=== PATIENT | female | born 1945 | race Caucasian/White ===

== ENCOUNTER 2019-10-08 16:00 | Emergency (ER) | payer OTHER, SELFPAY ==
[2019-10-08 16:15] VITALS: BP 180/103; PULSE 55; RESP 16; TEMP 36.6; O2SAT 99
[2019-10-08 17:33] VITALS: PULSE 55
[2019-10-08 18:42] VITALS: BP 179/89; PULSE 53; RESP 14; O2SAT 98
--- NOTE | 2019-10-08 18:44 | PC.NURSE ---
bp med held per md orders. pt informed
[2019-10-08 18:45] LABS: Basophils Absolute Auto 0.1 K/mm3 (0.0-0.1); Basophils Percent Auto 0.9 % (0.2-1.2); Eosinophils Absolute Auto 0.5 K/mm3 (0-0.3); Eosinophils Percent Auto 5.3 % (0-4.4); Hematocrit 45.4 % (37.0-47.0); Hemoglobin 14.6 g/dL (12.0-15.0); Immature Granulocyte Absolute 0.01 K/mm3 (0.00-0.031); Immature Granulocyte Percent A 0.1 % (0-0.5); Lymphocytes Absolute Auto 3.71 K/mm3 (0.9-3.2); Lymphocytes Percent Auto 40.6 % (18.3-44.2); Mean Corpuscular HGB Conc 32.2 g/dl (32-36); Mean Corpuscular Hemoglobin 28.8 pg (26-34); Mean Corpuscular Volume 89.5 fl (80-100); Mean Platelet Volume 10.4 fl (7.4-10.4); Monocytes Absolute Auto 0.6 K/mm3 (0.1-0.6); Monocytes Percent Auto 6.6 % (2.6-8.5); Neutrophils Absolute Auto 4.3 K/mm3 (1.3-6.7); Neutrophils Percent Auto 46.5 % (45.5-73.1); Platelet Count Result 334 k/mm3 (150-375); Red Blood Count 5.07 M/mm3 (4.2-5.4); Red Cell Distribution Width 13.5 % (11.5-14.5); White Blood Count 9.1 K/mm3 (4.5-10.0)
[2019-10-08 19:03] VITALS: BP 188/100; PULSE 57
[2019-10-08 19:23] LABS: Blood Urea Nitrogen 18 mg/dL (7-17); Calcium 9.5 mg/dL (8.4-10.2); Carbon Dioxide 26 mmol/L (22-30); Chloride 105 mmol/L (98-107); Estimated CRCL calculation 43 ml/min; Estimated Glomerular Filt Rate > 60; Glucose 108 mg/dL (65-105); Magnesium 2.3 mg/dL (1.6-2.3); Potassium 3.8 mmol/L (3.4-5.0); Sodium 142 mmol/L (137-145)
--- NOTE | 2019-10-08 19:28 | ED.GENADULT ---
HPI - General Adult General Chief complaint: Unspecified Stated complaint: high blood pressure Time Seen by Provider: 10/08/19 17:48 History of Present Illness HPI narrative: Patient is a 74-year-old female who presents the ER with hypertension. She is recently been started on metoprolol 100 mg and had her lisinopril 40 mg discontinued. Patient has had some intermittent blood pressures in the 200s systolic. She has been without chest pain/shortness of breath/nausea/vomiting/dizziness/headache. No other changes in medications. She is been on no sinus decongestants. Patient has some undiagnosed dementia according to the son. At this time patient is oriented to self and place but not time. She has difficult to giving any history about the course of which her medications have been changed or why she is here. Related Data Home Medications Medication Instructions Recorded Confirmed metoprolol succinate 100 mg PO DAILY 10/08/19 Allergies Allergy/AdvReac Type Severity Reaction Status Date / Time No Known Allergies Allergy Mild Verified 10/08/19 19:06 Review of Systems Review of Systems: All systems reviewed & are unremarkable except as noted in HPI and below ROS unobtainable: other (Limited due to dementia.) ENT: Denies dizziness, Denies nasal congestion and Denies sore throat Cardiovascular: Cardiovascular: Denies chest pain and Denies radiating jaw, neck or arm pain Respiratory: Respiratory: Denies chest congestion and Denies dyspnea Gastrointestinal: Gastrointestinal: Denies nausea and Denies vomiting PMFSH Past Medical History Medical History (Updated 10/08/19 @ 19:56 by Salvador Monique MD) Hypertension Surgical History Surgical History (Updated 10/08/19 @ 19:49 by Salvador Monique MD) History of tonsillectomy Social History Social History (Updated 10/08/19 @ 19:49 by Salvador Monique MD) Social History: Non-smoker Exam Narrative: Exam Narrative: GENERAL: Well-appearing, well-nourished, and in no acute distress. HEAD: Normocephalic, atraumatic. ENT: Mucous membranes moist. CHEST: Clear to auscultation. No respiratory distress. HEART: Regular rate and rhythm. No murmur heard. Normal peripheral pulses. ABDOMEN: Soft, nontender, nondistended. EXTREMITIES: Normal range of motion. No edema. NEURO: No focal deficits. Alert and oriented x3. PSYCH: Normal mood and affect. Course Course Emergency Course: Blood pressures ranged from the low 200s to 150 systolic. We will not give patient any additional medication to augment her blood pressure at this time as she is asymptomatic with normal labs. Is recommended she follow-up with Dr. Hays for further modification medication. I have also discussed that the patient may need assisted living given her deteriorating mental status, son states this is something he and his siblings have started to discuss. Vital Signs Vital signs: Vital Signs Temperature 97.9 F 10/08/19 16:15 Pulse Rate 55 L 10/08/19 16:15 Respiratory Rate 16 10/08/19 16:15 Blood Pressure 180/103 H 10/08/19 16:15 Pulse Oximetry 99 10/08/19 16:15 Temperature 97.9 F 10/08/19 16:15 Pulse Rate 57 L 10/08/19 19:03 Respiratory Rate 14 10/08/19 18:42 Blood Pressure 188/100 H 10/08/19 19:03 Pulse Oximetry 98 10/08/19 18:42 Medical Decision Making Vital Signs Vital Signs: Vital Signs Temperature 97.9 F 10/08/19 16:15 Pulse Rate 55 L 10/08/19 16:15 Respiratory Rate 16 10/08/19 16:15 Blood Pressure 180/103 H 10/08/19 16:15 Pulse Oximetry 99 10/08/19 16:15 Temperature 97.9 F 10/08/19 16:15 Pulse Rate 57 L 10/08/19 19:03 Respiratory Rate 14 10/08/19 18:42 Blood Pressure 188/100 H 10/08/19 19:03 Pulse Oximetry 98 10/08/19 18:42 Lab Data Result diagrams: 10/08/19 18:39 10/08/19 19:04 Labs: Lab Results 10/08/19 10/08/19 Range/Units 18:39 19:04 WBC 9.1 (4.5-10.0) K/
[2019-10-08 20:12] VITALS: BP 170/88; PULSE 57; RESP 17; O2SAT 96
== END 2019-10-08 20:22 | disposition home or self-care (01) ==
PROVIDERS: Emergency Provider Emergency Medicine; PCP Family Medicine Adolescent Medicine
DX: I10 Essential (primary) hypertension (principal)
CPT/HCPCS: 36415; 80048; 83735; 85025; 99283; J0360

== ENCOUNTER 2020-11-18 16:41 | Outpatient (CLI) | payer OTHER, MEDICARE, SELFPAY | END 2020-11-18 16:42 | disposition home or self-care (01) | LOC: ANHCOVIDVC 16:41 | PROVIDERS: PCP Family Medicine Adolescent Medicine | DX: Z23 Encounter for immunization (principal) | CPT/HCPCS: 0001A; 91300 ==

== ENCOUNTER 2020-12-09 16:48 | Outpatient (CLI) | payer OTHER, MEDICARE, SELFPAY | END 2020-12-09 16:49 | LOC: ANHCOVIDVC 16:48 | PROVIDERS: PCP Family Medicine Adolescent Medicine | DX: Z23 Encounter for immunization (principal) | CPT/HCPCS: 0002A; 91300 ==

== ENCOUNTER 2024-08-13 14:23 | Inpatient (IN) | payer OTHER, SELFPAY ==
--- NOTE | ~2024-08-13 | CT_ITS ---
EXAMINATION: CT brain wo con DATE: 08/13/2024 16:46 INDICATION: weak, fall . TECHNIQUE: Computed tomography (CT) of the head was performed without intravenous contrast. The mA wa s adjusted according to patient size. Iterative reconstruction technique was employed. The dose-lengt h product was 605.33 mGy-cm. COMPARISON: None. FINDINGS: No acute intracranial hemorrhage or extra-axial fluid collection. No hydrocephalus, mass, or herniation. No acute ischemic infarct. Unremarkable dural venous sinus attenuation. No acute osseous abnormality. The aerated spaces are clear. Mild atrophy and severe chronic white matter change. Atherosclerotic intracranial calcification. Bila teral lens replacements. IMPRESSION: No acute intracranial process. Reviewed, dictated and finalized at location K. NG MACHINE OPERATOR
--- NOTE | ~2024-08-13 | CT_ITS ---
EXAMINATION: CT cervical spine wo con DATE: 08/13/2024 16:47 INDICATION: weak, fall TECHNIQUE: Computed tomography (CT) of the cervical spine was performed without intravenous contrast. Automated exposure control and iterative reconstruction technique were employed. The dose-length pro duct was 156.90 mGy-cm. COMPARISON: MR C-spine 05/25/2019. FINDINGS: Vertebral Body Alignment: Intact. Craniocervical and atlantoaxial alignment: Moderate degenerative change. Alignment intact. Osseous structures/fracture: No evidence of a lytic or blastic process in the visualized spine. No e vidence of acute fracture. Cervical soft tissues: The paraspinal soft tissues planes are maintained. Biapical pleural scarring Degenerative changes: Multilevel degenerative disc disease and facet arthropathy. Multilevel severe n eural foraminal narrowing secondary to degenerative changes. No severe central canal narrowing. IMPRESSION: No acute fracture or traumatic malalignment in the cervical spine. Reviewed, dictated and finalized at location K. AND COMPLIANCE ANALYTICS DIRECTOR
--- NOTE | ~2024-08-13 | XR_ITS ---
EXAMINATION: XR chest 1V Exam Date/Time: 08/13/2024 16:22 AUTO BODY DETAILER HISTORY: weak Comparison: 03/21/2018. RESULT: Lines, tubes, and devices: None. Lungs and pleura: Patchy subsegmental somewhat nodular opacity in the right upper lung. Patchy segme ntal somewhat nodular opacities in the left midlung. Streaky left lower lung opacities. Minimal left costophrenic angle blunting. Cardiomediastinal silhouette: Stable. Other: No acute osseous or upper abdominal finding. IMPRESSION: Subsegmental right and segmental left mid lung opacities may represent infection. Recommend radiograp hic follow-up to ensure resolution. Possible small left pleural effusion Reviewed, dictated and finalized at location K. BODY DETAILER IMPRESSION: Subsegmental right and segmental left mid lung opacities may represent infectio n. Recommend radiographic follow-up to ensure resolution. Possible small left p leural effusion
--- NOTE | ~2024-08-13 | XR_ITS ---
XR chest 2V DATE: 08/18/2024 10:13 INDICATION: Congestion. Influenza. TECHNIQUE: PA and lateral chest COMPARISON: 08/13/2024 AP chest 03/21/2008 2 view chest FINDINGS: There are persistent bilateral pulmonary infiltrates including right upper lobe and left mi d and lower lung trevino, relatively stable since 08/13/2024. Continued radiographic follow-up is redd mmended to ensure complete clearing in order to exclude any possible pulmonary mass density masquerad ing as infiltrate. Normal heart size. No hilar or mediastinal enlargement. There is slight if any pleural effusions. No pneumothorax. No pulmonary vascular congestion. Osteopenia. IMPRESSION: Relatively stable bilateral pulmonary infiltrates and continued short-term radiographic f ollow-up is recommended to ensure complete clearing are to exclude any possible mass lesion. Reviewed, dictated and finalized at location A. T USHER IMPRESSION: Relatively stable bilateral pulmonary infiltrates and continued virgil rt-term radiographic follow-up is recommended to ensure complete clearing are t o exclude any possible mass lesion.
--- NOTE | ~2024-08-13 | US_ITS ---
EXAMINATION: US right upper quadrant DATE: 08/16/2024 09:49 INDICATION: Elevated liver function tests. TECHNIQUE: Multiple grayscale and Doppler ultrasound images of the abdomen were obtained. COMPARISON: None FINDINGS: The pancreatic head and body are normal in appearance. The pancreatic tail is not visualized. The vi sualized proximal inferior vena cava is normal. Liver has normal contour, with a smooth surface. Ther e is increased parenchymal echogenicity and coarsened echotexture consistent with diffuse hepatic renuka atosis. No liver lesion identified. No intrahepatic biliary duct dilation suspected. Portal venous f low was seen in the hepatopetal, normal direction and has normal Doppler waveform. Echogenic and shad owing gallstones within the nondilated gallbladder with no abnormal wall thickening. Sonographic Murp hy sign was reported as negative by the sheet metal production worker.Common bile duct measures 3 mm diameter which is normal. Visualized portion of the right kidney demonstrates normal echogenicity with no hydronephrosi s. IMPRESSION: 1. Cholelithiasis in normal-appearing gallbladder with no intra or extra hepatic biliary ductal dilat ion. 2. Diffuse hepatic steatosis. Reviewed, dictated and finalized at location B. STANT EXECUTIVE HOUSEKEEPER IMPRESSION: 1. Cholelithiasis in normal-appearing gallbladder with no intra or extra hepati c biliary ductal dilation. 2. Diffuse hepatic steatosis.
[2024-08-13 14:29] VITALS: BP 149/91; PULSE 96; RESP 16; TEMP 36.7; O2SAT 97
--- NOTE | 2024-08-13 16:05 | ED_ITS ---
HPI - Weakness General Chief complaint: Weakness <Leyla Carbajal PA-C - Last Filed: 08/13/24 16:26> Stated complaint: weakness and glf on Monday <Leyla Carbajal PA-C - Last Filed: 08/13/24 16:26> Time Seen by Provider: 08/13/24 17:25 <Leyla Carbajal PA-C - Last Filed: 08/13/24 16:26> Focused HPI: 79-year-old female presents to the emergency department for generalized weakness and frequent falls. Patient states generalized weakness has been present for several months. Per chart review the patient had a recent ground level fall with a head injury and she presents with a healing laceration to the left forehead. Patient denies recent fall or head injury. She is reporting new onset headaches. She denies fever, cough or congestion, chest pain or shortness of breath, abdominal pain, N/V/D, dysuria. GENERAL: Well-appearing, well-nourished, and in no acute distress. HEAD: Normocephalic. Healing 2 cm linear laceration to the left forehead no bleeding, surrounding erythema, induration or fluctuation CHEST: Clear to auscultation. ?No respiratory distress. HEART: Regular rate and rhythm.? NEURO: ?Alert and oriented x1. Patient screened in triage and initial orders placed.? ?Additional care and disposition to be based upon?diagnostic testing and treatment. <Leyla Carbajal PA-C - Last Filed: 08/13/24 16:26> History of Present Illness HPI Narrative: Agree with the above with the following additions/corrections: Patient has had a dry cough for approximately 1 and half weeks. She denies any shortness of breath or chest pain. She has been having myalgias particularly in her legs low back. She has been weak and had a ground level fall Monday but states this was her only fall, has not been frequently falling. She states she accidentally lost her footing. She sustained a laceraton to her left forehead. In general however she has been feeling worn out for approximately 1 month. Her only complaint at this time is a mild headache. Patient does know if she has ever undergone stress test or cardiac catheterization. Lives with her and dog. <Korin Poole MD - Last Filed: 08/15/24 06:45> Related Data Allergies/Adverse reactions: Allergies Allergy/AdvReac Type Severity Reaction Status Date / Time BOBO Inhibitors AdvReac Intermediate Cough Verified 08/14/24 04:26 <Leyla Carbajal PA-C - Last Filed: 08/13/24 16:26> PMFSH Past Medical History Medical History: Medical History (Updated 08/14/24 @ 01:29 by Shayna Linares PA-C) Short-term memory loss Hyperlipidemia Hypertension <Leyla Carbajal PA-C - Last Filed: 08/13/24 16:26> Surgical History Surgical History: Surgical History History of total abdominal hysterectomy (2013) History of tonsillectomy <Leyla Carbajal PA-C - Last Filed: 08/13/24 16:26> Family History Family History: Family History Father Throat cancer Mother Heart failure Cerebrovascular accident Breast cancer Acute myocardial infarction, Onset Age: 63 <Leyla Carbajal PA-C - Last Filed: 08/13/24 16:26> Social History Social History: Social History Social History: Surrogate medical decision maker: Lloyd Guerrero, spouse. Code status: Full code. Smoking status: Former smoker Tobacco type: cigarettes Smoking end date: 08/14/74 Do You Feel Safe in your Home?: Yes Lack of Transportation: No Lack of Food: Never True Current Housing: I Have Housing Concerned About Future Housing: No Difficulty Paying Gas/Electric Bills: No Difficulty Paying for Meds: No Currently Unemployed: No Education: Decline to Answer Difficulty w/ Childcare or Family Care: No Living arrangements: with family Additional living arrangements comments: and dog Spiritual care concerns: No <Leyla Carbajal PA-C - Last Filed: 08/13/24 16:26> Exam 2 Narrative: GENERAL: well-nourished, and in no acute distress although does appear acutely ill/weak/unwell. HEAD: Normocephalic. EYES: Non injected, non icteric ENT: Nares clear, no rhinorrhea or epistaxis. NECK: Supple. CHEST: Speaking in full sentences. No respiratory distress although patient was occasionally coughing during exam. Lungs otherwise clear to auscultation bilaterally. HEART: Regular rate and rhythm. . ABDOMEN: Soft, nondistended. EXTREMITIES: Normal range of motion. No lower extremity edema. SKIN: Warm, dry, no rash. 2cm well healing laceration on left forehead NEURO: No focal deficits. Alert and oriented x3. PSYCH: Normal mood and affect. <Korin Poole MD - Last Filed: 08/15/24 06:45> Course Vital Signs Vital signs: Vital Signs Temperature 98.1 F 08/13/24 14:29 Pulse Rate 96 08/13/24 14:29 Respiratory Rate 16 08/13/24 14:29 Blood Pressure 149/91 H 08/13/24 14:29 Pulse Oximetry 97 08/13/24 14:29 Temperature 98.6 F 08/15/24 03:47 Pulse Rate 78 08/15/24 05:48 Respiratory Rate 18 08/15/24 04:40 Blood Pressure 138/70 08/15/24 03:47 Pulse Oximetry 93 08/15/24 04:40 Oxygen Delivery Room Air 08/15/24 04:40 <Leyla Carbajal PA-C - Last Filed: 08/13/24 16:26> Vital Signs Temperature 98.1 F 08/13/24 14:29 Pulse Rate 96 08/13/24 14:29 Respiratory Rate 16 08/13/24 14:29 Blood Pressure 149/91 H 08/13/24 14:29 Pulse Oximetry 97 08/13/24 14:29 Temperature 98.6 F 08/15/24 03:47 Pulse Rate 78 08/15/24 05:48 Respiratory Rate 18 08/15/24 04:40 Blood Pressure 138/70 08/15/24 03:47 Pulse Oximetry 93 08/15/24 04:40 Oxygen Delivery Room Air 08/15/24 04:40 <Korin Poole MD - Last Filed: 08/15/24 06:45> MDM - Weakness MDM Narrative Medical decision making narrative: Patient presents with myalgias and a dry approximately 1 and weeks duration. She has been feeling weak and had a ground fall Monday which she sustained a laceration to forehead. In general however she has been feeling worn out for the past 1 month. In the emergency department she is afebrile with acceptable vital signs very mild hypertension. Patient has elevated troponin. While there was initially questionable ST- elevation it is not sustained throughout lead 3 and this is the only lead were to seen. She does have some scattered T-wave inversions. Aspirin and repeat troponin is ordered. Patient has transaminitis. Her CPK is elevated, and will start IV fluids. Patient with hypokalemia. Will replete/supplement and obtain magnesium level. She does test positive for influenza A. Patient is evaluated at bedside. She is observed to be occasionally coughing, nonproductive. Her only complaint other than her generalized weakness is a headache. Possibly postconcussive headache or possibly due to her viral illness. Will give a headache cocktail. Patient will be admitted for NSTEMI. This is not felt to be primarily cardiac in nature, likely due to demand ischemia and she has been weak given the flu. I did discuss code status with patient. At this time she would like to be full code and we discussed that this would potentially include chest compressions, intubation, defibrillation in the event of cardiopulmonary arrest. Discussed with physician interventional cardiologist hospitalist and admitted to the IMU. <Korin Poole MD - Last Filed: 08/15/24 06:45> Differential Diagnosis Differential diagnosis: Likely acute myocardial infarction, anemia, hypoglycemia, hypothyroidism, rhabdomyolysis, sepsis and dehydration <Korin Poole MD - Last Filed: 08/15/24 06:45> Medical Records Attestation: I reviewed the patient's medical records. <Korin Poole MD - Last Filed: 08/15/24 06:45> Medical records narrative: Patient had a wellness exam with her primary care physician on 06/18/2024, Dr Hays, who did raise question of some signs of dementia <Korin Poole MD - Last Filed: 08/15/24 06:45> Lab Data Attestation: I reviewed the patient's lab results. <Korin Poole MD - Last Filed: 08/15/24 06:45> Lab results narrative: Elevated hemoglobin and hematocrit, possibly due to hemoconcentration. No prior for comparison <Korin Poole MD - Last Filed: 08/15/24 06:45> Result diagrams: 08/15/24 04:48 08/15/24 04:48 <Leyla Carbajal PA-C - Last Filed: 08/13/24 16:26> Labs: Lab Results 08/13/24 08/13/24 Range/Units 16:21 16:22 WBC 5.8 (4.5-10.0) K/mm3 RBC 5.32 (4.2-5.4) M/mm3 Hgb 15.6 H (12.0-15.0) g/dL Hct 47.8 H (37.0-47.0) % MCV 89.8 (80-100) fl MCH 29.3 (26-34) pg MCHC 32.6 (32-36) g/dl RDW 14.0 (11.5-14.5) % Plt Count 239 (150-375) k/mm3 MPV 10.4 (7.4-10.4) fl Immature Gran % (Auto) 0.2 (0-0.5) % Neut % (Auto) 74.1 H (45.5-73.1) % Lymph % (Auto) 14.4 L (18.3-44.2) % [place] % (Auto) 10.8 H (2.6-8.5) % Eos % (Auto) 0.2 (0-4.4) % Baso % (Auto) 0.3 (0.2-1.2) % Lymph # (Auto) 0.84 L (0.9-3.2) K/mm3 [place] # (Auto) 0.6 (0.1-0.6) K/mm3 Eos # (Auto) 0.0 (0-0.3) K/mm3 Baso # (Auto) 0.0 (0.0-0.1) K/mm3 Abs Immat Gran (auto) 0.01 (0.00-0.031) K/mm3 Absolute Neuts (auto) 4.3 (1.3-6.7) K/mm3 Absolute Nucleated RBC 0.000 (0.0-0.012) K/mm3 Nucleated RBC % 0.0 (0.0-0.2) % PT 13.8 (11.1-14.7) Seconds INR 1.0 APTT 31.0 (22.3-36.8) Seconds Sodium 138 (137-145) mmol/L Potassium 3.3 L (3.4-5.0) mmol/L Chloride 104 (98-107) mmol/L Carbon Dioxide 28 (22-30) mmol/L Anion Gap 6 (4-12) mmol/L BUN 26 H (7-17) mg/dL Creatinine 0.90 (0.7-1.0) mg/dL Estim Creat Clear Calc 36 ml/min Estimated GFR 60 (59 - ) Glucose 114 H (65-110) mg/dL Calcium 9.0 (8.4-10.2) mg/dL Magnesium 2.6 H (1.6-2.3) mg/dL Total Bilirubin 1.0 (0.2-1.3) mg/dL AST 154 H (14-36) U/L ALT 70 H (6-35) U/L Alkaline Phosphatase 149 H (38-126) U/L Total Creatine Kinase 1502 H (30-135) U/L Troponin I 1.340 H* (0.000-0.034) ng/mL Total Protein 8.0 (6.3-8.2) g/dL Albumin 4.4 (3.5-5.1) g/dL TSH 1.290 (0.465-4.680) uIU/mL Influenza A (RT-PCR) Positive A (Negative) Influenza B (RT-PCR) Negative (Negative) RSV (RT-PCR) Negative (Negative) SARS-CoV-2 RNA (RT-PCR) Negative (Negative) <Leyla Carbajal PA-C - Last Filed: 08/13/24 16:26> Lab Results 08/13/24 08/13/24 Range/Units 16:21 16:22 WBC 5.8 (4.5-10.0) K/mm3 RBC 5.32 (4.2-5.4) M/mm3 Hgb 15.6 H (12.0-15.0) g/dL Hct 47.8 H (37.0-47.0) % MCV 89.8 (80-100) fl MCH 29.3 (26-34) pg MCHC 32.6 (32-36) g/dl RDW 14.0 (11.5-14.5) % Plt Count 239 (150-375) k/mm3 MPV 10.4 (7.4-10.4) fl Immature Gran % (Auto) 0.2 (0-0.5) % Neut % (Auto) 74.1 H (45.5-73.1) % Lymph % (Auto) 14.4 L (18.3-44.2) % [place] % (Auto) 10.8 H (2.6-8.5) % Eos % (Auto) 0.2 (0-4.4) % Baso % (Auto) 0.3 (0.2-1.2) % Lymph # (Auto) 0.84 L (0.9-3.2) K/mm3 [place] # (Auto) 0.6 (0.1-0.6) K/mm3 Eos # (Auto) 0.0 (0-0.3) K/mm3 Baso # (Auto) 0.0 (0.0-0.1) K/mm3 Abs Immat Gran (auto) 0.01 (0.00-0.031) K/mm3 Absolute Neuts (auto) 4.3 (1.3-6.7) K/mm3 Absolute Nucleated RBC 0.000 (0.0-0.012) K/mm3 Nucleated RBC % 0.0 (0.0-0.2) % PT 13.8 (11.1-14.7) Seconds INR 1.0 APTT 31.0 (22.3-36.8) Seconds Sodium 138 (137-145) mmol/L Potassium 3.3 L (3.4-5.0) mmol/L Chloride 104 (98-107) mmol/L Carbon Dioxide 28 (22-30) mmol/L Anion Gap 6 (4-12) mmol/L BUN 26 H (7-17) mg/dL Creatinine 0.90 (0.7-1.0) mg/dL Estim Creat Clear Calc 36 ml/min Estimated GFR 60 (59 - ) Glucose 114 H (65-110) mg/dL Calcium 9.0 (8.4-10.2) mg/dL Magnesium 2.6 H (1.6-2.3) mg/dL Total Bilirubin 1.0 (0.2-1.3) mg/dL AST 154 H (14-36) U/L ALT 70 H (6-35) U/L Alkaline Phosphatase 149 H (38-126) U/L Total Creatine Kinase 1502 H (30-135) U/L Troponin I 1.340 H* (0.000-0.034) ng/mL Total Protein 8.0 (6.3-8.2) g/dL Albumin 4.4 (3.5-5.1) g/dL TSH 1.290 (0.465-4.680) uIU/mL Influenza A (RT-PCR) Positive A (Negative) Influenza B (RT-PCR) Negative (Negative) RSV (RT-PCR) Negative (Negative) SARS-CoV-2 RNA (RT-PCR) Negative (Negative) <Korin Poole MD - Last Filed: 08/15/24 06:45> Imaging Data My impression: I do appreciate some mild haziness in the mid bilateral lung trevino < Korin Poole MD - Last Filed: 08/15/24 06:45> Radiologist's impression: IMPRESSION: No acute fracture or traumatic malalignment in the cervical spine. IMPRESSION: Subsegmental right and segmental left mid lung opacities may represent infection. Recommend radiographic follow-up to ensure resolution. Possible small left pleural effusion IMPRESSION: No acute intracranial process. <Korin Poole MD - Last Filed: 08/15/24 06:45> ECG Data EKG #1: Attestation: I personally reviewed and interpreted this ECG as follows: < Korin Poole MD - Last Filed: 08/15/24 06:45> ECG completion date: 08/13/24 <Korin Poole MD - Last Filed: 08/15/24 06:45> ECG completion time: 16:17 <Korin Poole MD - Last Filed: 08/15/24 06:45> Prior ECG tracings: not available for review (No prior for comparison) <Korin Poole MD - Last Filed: 08/15/24 06:45> Interpretation: Normal sinus rhythm at a rate of 89 beats per minute. SC interval 156. QRS 87. QT/QTC 353/400. Poor R-wave progression across the precordial leads. There is questionable elevation of ST segment in lead 3 but no contiguous elevation and it is not seen in all of the complexes in III thus potentially due to artifact. T-wave inversion in lead 3. T-wave inversions in V3 as well. <Korin Poole MD - Last Filed: 08/15/24 06:45> Discharge Plan Discharge Clinical Impression: Non-ST elevation NC (NSTEMI), Weakness, History of recent fall, Transaminitis, Elevated CPK, Influenza A <Leyla Carbajal PA-C - Last Filed: 08/13/24 16:26> Patient Disposition: Still a Patient <Leyla Carbajal PA-C - Last Filed: 08/13/24 16:26> Condition: Stable <Leyla Carbajal PA-C - Last Filed: 08/13/24 16:26>
--- NOTE | 2024-08-13 16:05 | ECG_ITS ---
Test Date: 2024-08-13 16:17:17 Measurements Intervals [place] Rate: 89 P: 5 ME: 156 QRS: -35 QRSD: 87 T: -17 QT: 353 QTc: 431 Interpretive Statements SINUS RHYTHM MINIMAL VOLTAGE CRITERIA FOR LVH, CONSIDER NORMAL VARIANT [MEETS CRITERIA IN ONE OF: R(aVL), S(V1), R(V5), R(V5/V6)+S(V1)] POSSIBLE ANTERIOR MYOCARDIAL INFARCTION , OF INDETERMINATE AGE [30 ms Q WAVE IN V3/V4, OR R < 0.2 mV IN V4] INFERIOR MYOCARDIAL INFARCTION , OF INDETERMINATE AGE [40+ ms Q WAVE AND/OR ST/T ABNORMALITY IN II/aVF] No previous ECG available for comparison Electronically Signed On 08-13-2024 22:39:44 [employer] by Rajiv Hoskins M.D.
[2024-08-13 16:39] LABS: Basophils Percent Auto 0.3 % (0.2-1.2); Eosinophils Percent Auto 0.2 % (0-4.4); Hematocrit 47.8 % (37.0-47.0); Hemoglobin 15.6 g/dL (12.0-15.0); Immature Granulocyte Absolute 0.01 K/mm3 (0.00-0.031); Immature Granulocyte Percent A 0.2 % (0-0.5); Lymphocytes Absolute Auto 0.84 K/mm3 (0.9-3.2); Lymphocytes Percent Auto 14.4 % (18.3-44.2); Mean Corpuscular HGB Conc 32.6 g/dl (32-36); Mean Corpuscular Hemoglobin 29.3 pg (26-34); Mean Corpuscular Volume 89.8 fl (80-100); Mean Platelet Volume 10.4 fl (7.4-10.4); Monocytes Absolute Auto 0.6 K/mm3 (0.1-0.6); Monocytes Percent Auto 10.8 % (2.6-8.5); Neutrophils Absolute Auto 4.3 K/mm3 (1.3-6.7); Neutrophils Percent Auto 74.1 % (45.5-73.1); Platelet Count Result 239 k/mm3 (150-375); Red Blood Count 5.32 M/mm3 (4.2-5.4); White Blood Count 5.8 K/mm3 (4.5-10.0)
[2024-08-13 16:53] LABS: Prothrombin Time 13.8 Seconds (11.1-14.7)
[2024-08-13 16:54] LABS: Alanine Aminotransferase 70 U/L (6-35); Albumin Level 4.4 g/dL (3.5-5.1); Alkaline Phosphatase 149 U/L (38-126); Anion Gap 6 mmol/L (4-12); Aspartate Amino Transferase 154 U/L (14-36); Blood Urea Nitrogen 26 mg/dL (7-17); Carbon Dioxide 28 mmol/L (22-30); Chloride 104 mmol/L (98-107); Estimated CRCL calculation 36 ml/min; Estimated Glomerular Filt Rate 60; Glucose 114 mg/dL (65-110); Potassium 3.3 mmol/L (3.4-5.0); Sodium 138 mmol/L (137-145)
[2024-08-13 17:16] LABS: Influenza A QL RT-PCR Positive (Negative); Influenza B QL RT-PCR Negative (Negative); RSV RNA, RT-PCR Negative (Negative); SARS-CoV-2 RNA PCR Negative (Negative)
[2024-08-13 17:29] LABS: Creatine Kinase 1502 U/L (30-135)
[2024-08-13 17:45] VITALS: BP 175/91; PULSE 85; RESP 19; O2SAT 94
[2024-08-13] MEDS: TETANUS,DIPHTHERIA,AC PERTUSSIS ADULT (0.5 ML) BOOSTRIX IM (17:48)
[2024-08-13 18:09] LABS: Magnesium 2.6 mg/dL (1.6-2.3)
[2024-08-13] MEDS: POTASSIUM BICARBONATE 25 MEQ TABEF PO (18:09)
[2024-08-13] MEDS: ASPIRIN 81 MG CHEWABLE TABLET 324 MG PO (18:09)
[2024-08-13 18:11] VITALS: BP 158/85; PULSE 83; RESP 18; O2SAT 95
[2024-08-13] MEDS: PROCHLORPERAZINE EDISYLATE 10 MG/2 ML VIAL 5 MG IV PUSH (18:22)
[2024-08-13] MEDS: SODIUM CHLORIDE 0.9% IV 1,000 ML 999 ML IV CONT (18:22)
[2024-08-13] MEDS: diphenhydrAMINE HCl INJ 50 MG/ML VIAL 25 MG IV PUSH (18:24)
[2024-08-13] MEDS: KETOROLAC 15 MG/ML VIAL (*BKC) IV PUSH (18:26)
[2024-08-13 18:29] VITALS: BP 158/85; PULSE 91; RESP 16; O2SAT 96
--- NOTE | 2024-08-13 20:35 | P.HP_ITS ---
H&P: HPI History of Present Illness Date/Time: 08/13/24 20:00 Chief Complaint: Weakness and fall. Narrative: This is an 79-year-old female with short-term memory loss, hypertension, and hyperlipidemia who presented to the emergency department via EMS from home for evaluation of weakness in after a fall. She is a fair historian and some of the following is supplemented via a review of her EMR. In triage she said that she has felt ?worn out? for at least 1 month. She has had a couple of falls and within the last couple of days she fell going down the front steps and landed forward on the concrete. She does not know how she fell but assumes that she got her feet tripped up, as she does not recall having prodrome of symptoms prior to the fall and she denies loss of consciousness. It is unclear why she decided to come in today for evaluation and she seems to be confused. No family members were present at bedside and I have not been able to get a hold of anyone as of yet for further information. At the time my evaluation she has no complaints and denies headache, neck ache, vertigo, visual changes, facial droop, difficulty speaking and swallowing, paresthesias, focal weakness, fever, chills, sweats, sinus congestion, sore throat, cough, chest pain, pleuritic pain, palpitations, orthopnea, paroxysmal nocturnal dyspnea, abdominal pain, nausea, vomiting, diarrhea, and dysuria. In the ED: Vital signs were stable on arrival. Labs were significant for WBC count of 5.8, hemoglobin 15.6, potassium 3.3, BUN 26, creatinine 0.90, glucose 114, AST 154, ALT 70, alkaline phosphatase 149, total CK 1502, troponin 1.340. She tested positive for influenza A. Brain CT and cervical spine CT were without acute findings. Chest x-ray showed subsegmental right and segmental left mid zone opacities which may represent infection and possible small left pleural effusion. EKG showed sinus rhythm with minimal voltage criteria for LVH, possible anterior myocardial infarction, and inferior UT of undetermined age. She was given aspirin 324 mg, potassium bicarbonate 25 mEq, and a L normal saline bolus. She is being admitted to the hospital in this setting for further treatment and evaluation. Review of Systems Review of Systems: 12 systems were reviewed and are negativ e except for as per HPI. [facility] Past Medical History Medical History (Updated 08/14/24 @ 01:29 by Shayna Linares PA-C) Short-term memory loss Hyperlipidemia Hypertension Surgical History Surgical History History of total abdominal hysterectomy (2013) History of tonsillectomy Family History Family History Father Throat cancer Mother Heart failure Cerebrovascular accident Breast cancer Social History Social History (Updated 08/14/24 @ 01:26 by Shayna Linares PA-C) Social History: Surrogate medical decision maker: Lloyd Guerrero, spouse. Code status: Full code. Smoking status: Former smoker Meds Home Medications and Allergies Home Medications ?Medication ?Instructions ?Recorded ?Confirmed ?Type amlodipine 5 mg tablet 5 mg PO DAILY #90 tabs 06/18/24 06/18/24 Rx atorvastatin 40 mg tablet 40 mg PO DAILY #90 tabs 06/26/24 Rx Allergies Allergy/AdvReac Type Severity Reaction Status Date / Time BOBO Inhibitors AdvReac Intermediate Cough Verified 08/13/24 17:43 Vital Signs Vital Signs - 24 hr 08/13/24 14:29 08/13/24 17:45 08/13/24 18:11 Temperature 98.1 F Pulse Rate 96 85 83 Respiratory Rate 16 19 18 Blood Pressure 149/91 H 175/91 H 158/85 H Pulse Oximetry 97 94 95 08/13/24 18:29 Temperature Pulse Rate 91 Respiratory Rate 16 Blood Pressure 158/85 H Pulse Oximetry 96 Exam Narrative: General: Mildly ill-appearing elderly female sitting up in bed in no acute distress. Weight: 59 kg. BMI: 23.0. HEENT: 1.5 to 2 cm linear laceration over the left forehead. PERRL, EOMI. Sclera anicteric. Tacky mucous membranes. Neck: Supple. No midline vertebral tenderness. Respiratory: Respirations are nonlabored. Lung sounds are a bit coarse but otherwise clear to auscultation. Cardiovascular: Regular rate and rhythm with S1-S2. Gastrointestinal: Abdomen is soft, nontender, and nondistended with positive bowel sounds. Skin: Warm and dry. Laceration over the left forehead as above. There are some scabbed areas on the dorsum of the fingers. Old bruise on the right knee. Extremities: No cyanosis, clubbing, or edema. Radial and pedal pulses intact. Neurological: Alert and oriented x3, she seems a bit confused with regards to how she fell. Cranial nerves 2-12 are grossly intact. Speech is clear. No facial asymmetry. Hand screen printing machine operator and foot pushes are equal bilaterally. She seems generally weak without gross focal deficit. Psychiatric: Pleasant and cooperative with appropriate mood. Seems a bit confused. H&P: Results Labs Labs: Short CBC 08/13/24 Range/Units 16:22 WBC 5.8 (4.5-10.0) K/mm3 Hgb 15.6 H (12.0-15.0) g/dL Hct 47.8 H (37.0-47.0) % Plt Count 239 (150-375) k/mm3 BMP 08/13/24 16:22 Sodium 138 Potassium 3.3 L Chloride 104 Carbon Dioxide 28 BUN 26 H Creatinine 0.90 Glucose 114 H Calcium 9.0 Cardiac Enzymes 08/13/24 Range/Units 16:22 Total Creatine Kinase 1502 H (30-135) U/L Troponin I 1.340 H* (0.000-0.034) ng/mL Liver Function 08/13/24 Range/Units 16:22 Total Bilirubin 1.0 (0.2-1.3) mg/dL AST 154 H (14-36) U/L ALT 70 H (6-35) U/L Alkaline Phosphatase 149 H (38-126) U/L Albumin 4.4 (3.5-5.1) g/dL Assessment and Plan Assessment and plan (1) Influenza A: Code(s): J10.1 - Influenza due to other identified influenza virus with other respiratory manifestations Status: Acute (2) Non-ST elevation UT (NSTEMI): Code(s): I21.4 - Non-ST elevation (NSTEMI) myocardial infarction Status: Acute (3) Rhabdomyolysis: Code(s): M62.82 - Rhabdomyolysis Status: Acute (4) Hypokalemia: Code(s): E87.6 - Hypokalemia Status: Acute (5) Transaminitis: Code(s): R74.01 - Elevation of levels of liver transaminase levels Status: Acute (6) Hypertension: Code(s): I10 - Essential (primary) hypertension Status: Acute (7) Mixed hyperlipidemia: Code(s): E78.2 - Mixed hyperlipidemia Status: Acute (8) Short-term memory loss: Code(s): R41.3 - Other amnesia Status: Acute Plan The patient presented to the emergency department for evaluation of weakness as detailed in HPI. Labs, imaging, EKG, and all reports were personally reviewed. Her weakness is likely due to a combination of factors. She tested positive for influenza A and has been started on oseltamivir. She has mild rhabdomyolysis and will be judiciously hydrated. Transaminitis is likely related to the mild rhabdomyolysis as her abdominal exam is benign though will obtain a right upper quadrant ultrasound. Troponin is modestly elevated but is flat and she is not having any chest pain what so ever. She does have EKG changes however and was given enoxaparin 1 mg/kg x1. She will be NPO after midnight for possible procedure tomorrow. Cardiology has been consulted for recommendations. Potassium was replaced and will be monitored. Blood pressures were reviewed and they are stable. Her home medications will be reviewed and resumed as appropriate. Findings and treatment plan were discussed with the patient. Questions were solicited and answered to satisfaction. The patient's medical management will be taken over by the hospitalist team in a.m. Quality VTE Prophylaxis VTE prophylaxis: pharmacologic ordered The patient has been admitted under observation status. Hospitalist MIPS Advance Care Plan I have confirmed that the patient's Advanced Care Plan is present, code status is documented, or surrogate decision maker is listed in patient medical record.: Yes Medication Reconciliation I have utilized all available resources to obtain, update and review the patients current medications (includes all prescriptions, OTC, herbals, cannabis, and nutritional supplements).: Yes
[2024-08-13 22:13] VITALS: BP 151/69; PULSE 70; RESP 18; O2SAT 93
[2024-08-13] MEDS: SODIUM CHLORIDE 0.9% IV 1,000 ML 125 ML IV CONT (22:39)
[2024-08-13 22:41] VITALS: BP 143/67; PULSE 68; RESP 20; O2SAT 90
[2024-08-14] VITALS (15 sets, daily range): BP systolic 118–149; BP diastolic 64–86; PULSE 8–91; RESP 18–20; TEMP 36.6–37.1; O2SAT 9–100; BMI 23.3
[2024-08-14] MEDS: ENOXAPARIN 60 MG/0.6 ML SYRINGE SUB-Q (01:31)
--- NOTE | 2024-08-14 02:28 | PC.NURSE ---
This nurse received report from Camma RN for this patient at this time.
--- NOTE | 2024-08-14 02:47 | PC.NURSE ---
IV access discontinued r/t infiltration. Multiple attempts made for new IV access without success. TAMEKA Linares made aware.
--- NOTE | 2024-08-14 02:47 | PC.NURSE ---
This patient, Radha Guerrero, was admitted to IMU Room 209-01. Patient/family oriented to hospital policies and general routines including ID bracelet, bed and alarms, visiting hours, pain management, procedures, bathroom and other care routines, personal items, smoking policy, room service/diet, and visiting hours. Information on how to activate the Rapid Response Team has been discussed. Patient/Family are encouraged to report perceived risks to care and to ask questions if they do not understand what they are told or what they should do.
[2024-08-14 05:20] LABS: Basophils Percent Auto 0.6 % (0.2-1.2); Hematocrit 41.8 % (37.0-47.0); Hemoglobin 13.7 g/dL (12.0-15.0); Immature Granulocyte Absolute 0.01 K/mm3 (0.00-0.031); Immature Granulocyte Percent A 0.3 % (0-0.5); Lymphocytes Absolute Auto 1.02 K/mm3 (0.9-3.2); Lymphocytes Percent Auto 29.5 % (18.3-44.2); Mean Corpuscular HGB Conc 32.8 g/dl (32-36); Mean Corpuscular Hemoglobin 29.8 pg (26-34); Mean Corpuscular Volume 91.1 fl (80-100); Mean Platelet Volume 10.5 fl (7.4-10.4); Monocytes Absolute Auto 0.4 K/mm3 (0.1-0.6); Monocytes Percent Auto 11.6 % (2.6-8.5); Platelet Count Result 188 k/mm3 (150-375); Red Blood Count 4.59 M/mm3 (4.2-5.4); Red Cell Distribution Width 13.8 % (11.5-14.5); White Blood Count 3.5 K/mm3 (4.5-10.0)
[2024-08-14 05:41] LABS: Alanine Aminotransferase 56 U/L (6-35); Albumin Level 3.3 g/dL (3.5-5.1); Alkaline Phosphatase 118 U/L (38-126); Anion Gap 2 mmol/L (4-12); Aspartate Amino Transferase 145 U/L (14-36); Bilirubin,Total 0.9 mg/dL (0.2-1.3); Blood Urea Nitrogen 18 mg/dL (7-17); Calcium 7.8 mg/dL (8.4-10.2); Carbon Dioxide 24 mmol/L (22-30); Chloride 112 mmol/L (98-107); Creatine Kinase 2314 U/L (30-135); Estimated CRCL calculation 45 ml/min; Estimated Glomerular Filt Rate > 60; Glucose 83 mg/dL (65-110); Magnesium 2.2 mg/dL (1.6-2.3); Potassium 2.8 mmol/L (3.4-5.0); Sodium 138 mmol/L (137-145)
[2024-08-14] MEDS: POTASSIUM CHLORIDE 20 MEQ ER TABLET 40 MEQ PO (06:35)
[2024-08-14] MEDS: OSELTAMIVIR PHOSPHATE 30 MG CAPSULE PO ×2 (06:36→18:44)
[2024-08-14] MEDS: POTASSIUM CHLORIDE INJ 40 MEQ in SODIUM CHLORIDE 0.9% IV 500 ML 130 MEQ IVPB (09:51)
[2024-08-14] MEDS: ASPIRIN 81 MG CHEWABLE TABLET PO (09:52)
[2024-08-14] MEDS: amLODIPine BESYLATE 5 MG TABLET PO (09:52)
[2024-08-14] MEDS: ENOXAPARIN 40 MG/0.4 ML SYRINGE SUB-Q (09:52)
[2024-08-14] MEDS: ATORVASTATIN 40 MG TABLET PO (09:52)
--- NOTE | 2024-08-14 13:06 | P.CONCA_ITS ---
Assessment and Plan Assessment and plan (1) Rhabdomyolysis: Code(s): M62.82 - Rhabdomyolysis Status: Acute (2) Non-ST elevation ID (NSTEMI): Code(s): I21.4 - Non-ST elevation (NSTEMI) myocardial infarction Status: Acute (3) Hypokalemia: Code(s): E87.6 - Hypokalemia Status: Acute Plan 1. NSTEMI 2. Rhabdomyolysis 3. hypokalemia 4. influenza A -I suspect she had a recent event, most likely a few weeks ago -will continue heparin for 48 hours if no contraindication -aspirin 81 mg, Lipitor 40 mg -start metoprolol 25 mg p.o b.i.d. -echo to assess wall motion and LV systolic function -she will need a cardiac catheterization. We discussed the risks, benefits and alternatives of cardiac catheterization and coronary angiography. She agreed to the procedure. We will proceed with a cardiac catheterization most likely in 2 days after she improves terms of her rhabdo -rest as per primary team -potassium replacement as per primary team History of Present Illness History of Present Illness Consult date/time: 08/14/24 13:06 Reason For Visit: Influenza A/NSTEMI/Elevated CPK/Weakness/Recent Fa Narrative: This is an 79-year-old female with short-term memory loss, hypertension, and hyperlipidemia who was admitted with genralized weakness and fall. She not been feeling well sicne the last 4-6 weeks. Found to have rhabdo. Cardiolgoy consulted for elevated troponin. She declined any chest pain. She did endorse chest pain around 5-6 weeks ago. ECG showed NSR, poor R wave progression in precordial leads, ST-T changes suggestive of a recent IWMI Positive for Influenza A Troponin 1.34, 1.36 No known prior CAD, ID or CVA No bleeding from any source Review of Systems 2 Review of Systems: 12 systems were reviewed and are negativ e except for as per HPI. [facility] Past Medical History Medical History (Updated 08/14/24 @ 01:29 by Shayna Linares PA-C) Short-term memory loss Hyperlipidemia Hypertension Surgical History Surgical History History of total abdominal hysterectomy (2013) History of tonsillectomy Family History Family History Father Throat cancer Mother Heart failure Cerebrovascular accident Breast cancer Social History Social History (Updated 08/14/24 @ 01:26 by Shayna Linares PA-C) Social History: Surrogate medical decision maker: Lloyd Guerrero, spouse. Code status: Full code. Smoking status: Former smoker Tobacco type: cigarettes Smoking end date: 08/14/74 Do You Feel Safe in your Home?: Yes Lack of Transportation: No Lack of Food: Never True Current Housing: I Have Housing Concerned About Future Housing: No Difficulty Paying Gas/Electric Bills: No Difficulty Paying for Meds: No Currently Unemployed: No Education: Decline to Answer Difficulty w/ Childcare or Family Care: No Spiritual care concerns: No Meds Home Medications and Allergies Home Medications ?Medication ?Instructions ?Recorded ?Confirmed ?Type amlodipine 5 mg tablet 5 mg PO DAILY #90 tabs 06/18/24 08/14/24 Rx atorvastatin 40 mg tablet 40 mg PO DAILY #90 tabs 06/26/24 08/14/24 Rx Allergies Allergy/AdvReac Type Severity Reaction Status Date / Time BOBO Inhibitors AdvReac Intermediate Cough Verified 08/14/24 04:26 Vital Signs Vital Signs - 24 hr 08/13/24 14:29 08/13/24 17:45 08/13/24 18:11 Temperature 36.7 C Pulse Rate 96 85 83 Respiratory Rate 16 19 18 Blood Pressure 149/91 H 175/91 H 158/85 H Pulse Oximetry 97 94 95 Oxygen Delivery 08/13/24 18:29 08/13/24 22:13 08/13/24 22:41 Temperature Pulse Rate 91 70 68 Respiratory Rate 16 18 20 Blood Pressure 158/85 H 151/69 H 143/67 H Pulse Oximetry 96 93 90 Oxygen Delivery 08/14/24 02:47 08/14/24 02:47 08/14/24 04:00 Temperature 36.9 C Pulse Rate 83 70 Respiratory Rate 18 Blood Pressure 141/69 H Pulse Oximetry 100 100 Oxygen Delivery Room Air 08/14/24 06:00 08/14/24 08:00 08/14/24 08:00 Temperature 37.1 C Pulse Rate 67 8 L Respiratory Rate 18 Blood Pressure 131/64 131/64 Pulse Oximetry 94 Oxygen Delivery 08/14/24 08:21 08/14/24 08:21 08/14/24 12:00 Temperature 36.6 C Pulse Rate 76 Respiratory Rate 20 Blood Pressure 130/74 118/71 128/69 Pulse Oximetry 9 L Oxygen Delivery Exam 2 Narrative: General: Mildly ill-appearing elderly female sitting up in bed in no acute distress. Weight: 59 kg. BMI: 23.0. HEENT: 1.5 to 2 cm linear laceration over the left forehead. PERRL, EOMI. Sclera anicteric. Neck: Supple. No midline vertebral tenderness. Respiratory: Respirations are nonlabored. Lung sounds are a bit coarse but otherwise clear to auscultation. Cardiovascular: Regular rate and rhythm with S1-S2. Gastrointestinal: Abdomen is soft, nontender, and nondistended with positive bowel sounds. Skin: Warm and dry. Laceration over the left forehead as above. There are some scabbed areas on the dorsum of the fingers. Old bruise on the right knee. Extremities: No cyanosis, clubbing, or edema. Radial and pedal pulses intact. Neurological: Alert and oriented x3, she seems a bit confused with regards to how she fell. Cranial nerves 2-12 are grossly intact. Speech is clear. No facial asymmetry. Hand jewelry maker and foot pushes are equal bilaterally. She seems generally weak without gross focal deficit. Psychiatric: Pleasant and cooperative with appropriate mood. Seems a bit confused. Results Labs and Meds 08/14/24 04:47 08/14/24 04:47 Lab results: Cardiac Enzymes 08/13/24 08/13/24 08/14/24 Range/Units 16:22 20:49 04:47 AST 154 H 145 H (14-36) U/L Troponin I 1.340 H* 1.360 H* (0.000-0.034) ng/mL Coagulation 08/13/24 Range/Units 16:22 PT 13.8 (11.1-14.7) Seconds APTT 31.0 (22.3-36.8) Seconds CBC 08/13/24 08/14/24 Range/Units 16:22 04:47 WBC 5.8 3.5 L (4.5-10.0) K/mm3 RBC 5.32 4.59 (4.2-5.4) M/mm3 Hgb 15.6 H 13.7 (12.0-15.0) g/dL Hct 47.8 H 41.8 (37.0-47.0) % Plt Count 239 188 (150-375) k/mm3 Lymph # (Auto) 0.84 L 1.02 (0.9-3.2) K/mm3 [place] # (Auto) 0.6 0.4 (0.1-0.6) K/mm3 Eos # (Auto) 0.0 0.0 (0-0.3) K/mm3 Baso # (Auto) 0.0 0.0 (0.0-0.1) K/mm3 Comprehensive Metabolic Panel 08/13/24 08/14/24 Range/Units 16:22 04:47 Sodium 138 138 (137-145) mmol/L Potassium 3.3 L 2.8 L* (3.4-5.0) mmol/L Chloride 104 112 H (98-107) mmol/L Carbon Dioxide 28 24 (22-30) mmol/L BUN 26 H 18 H (7-17) mg/dL Creatinine 0.90 0.70 (0.7-1.0) mg/dL Glucose 114 H 83 (65-110) mg/dL Calcium 9.0 7.8 L (8.4-10.2) mg/dL AST 154 H 145 H (14-36) U/L ALT 70 H 56 H (6-35) U/L Alkaline Phosphatase 149 H 118 (38-126) U/L Total Protein 8.0 6.0 L (6.3-8.2) g/dL Albumin 4.4 3.3 L (3.5-5.1) g/dL Intake and Output 08/13/24 08/14/24 08/14/24 23:59 07:59 15:59 Intake Total 1000 576.7 Output Total 0 Balance 1000 576.7 Intake: IV 1000 516.7 Sodium Chloride 0.9% IV 1,000 1000 516.7 ml @ 125 mls/hr IV CONT .Q8H [facility] Rx#:[id number] Oral 60 Output: Urine 0 Patient Weight 08/14/24 23:59 Weight 59.7 kg
--- NOTE | 2024-08-14 18:08 | P.PNIM_ITS ---
Progress Note: A&P Assessment and Plan (1) Influenza A: Code(s): J10.1 - Influenza due to other identified influenza virus with other respiratory manifestations Status: Acute Assessment and Plan: The patient presented to the emergency department for evaluation of weakness and found to have influenza A COVID and RSV negative. Leukopenia noted at 3500 felt related to influenza. CXR showing subsegmental right and segmental left mid lung opacities may represent infection and possible small left pleural effusion She was started on oseltamivir. Rhabdomyolysis felt related to influenza. Remains on room air. Supportive care. (2) Non-ST elevation [place] (NSTEMI): Code(s): I21.4 - Non-ST elevation (NSTEMI) myocardial infarction Status: Acute Assessment and Plan: No complaints of chest pain. Troponin elevated to 1.36 and flat. CXR as above. EKG showing sinus, LVH, possible age indeterminate anterior and inferior [place]. She was given enoxaparin 1 mg/kg x1. Cardiology was consulted and appreciate their recommendations. Elevated Trop could be related to Rhabdo. Continue ASA. Lipitor started but will hold until rhabdo is better. Metoprolol added. LHC being considered. (3) Rhabdomyolysis: Code(s): M62.82 - Rhabdomyolysis Status: Acute Assessment and Plan: Patient had rhabdomyolysis on presentation felt related to influenza. LFTs were mildly elevated related to rhabdo and influenza. AST and ALT are trending downward. Creatinine kinase is worse today but creatinine remains normal. Continue IV fluids. Continue to monitor. (4) Hypokalemia: Code(s): E87.6 - Hypokalemia Status: Acute Assessment and Plan: Potassium low on admission and this was replaced. Potassium is worse today for unclear reasons. Potassium was replaced again. Magnesium 2.2. Repeat potassium and continue to replace as needed. (5) Transaminitis: Code(s): R74.01 - Elevation of levels of liver transaminase levels Status: Acute Assessment and Plan: As above. Related to influenza. (6) Hypertension: Code(s): I10 - Essential (primary) hypertension Status: Acute Assessment and Plan: Patient's blood pressure was reviewed on 08/14/24 Blood pressure remains better controlled. Will continue to monitor (7) Short-term memory loss: Code(s): R41.3 - Other amnesia Status: Acute Assessment and Plan: Stable Plan DVT prophylaxis -Lovenox Code status -full Subjective Date/time seen: 08/14/24 18:08 Interval history: 79yo female with short-term memory loss, HTN and HLD here for weakness in after a fall. Assuming care. Chart reviewed. Patient slept okay last night. She has a slight cough and this is better overall. No chest pain. Exam Narrative: AF 98.3 129/74 76 18 90% ra Gen - NARD Chest -scattered rhonchi otherwise clear. CV - RRR S1/S2. Telemetry showing no significant dysrhythmias Abd - Soft, NT/ND, Positive BS Ext - No pedal edema Neuro - Alert and appropriate Psych - Nml mood and affect Skin - Warm and dry. Small linear laceration left forehead that is clean, dry and without evidence of infection. Bruising noted about her legs in various stages of healing. Objective Data Vital Signs Vital Signs: Vital Signs - 24 hr 08/13/24 18:11 08/13/24 18:29 08/13/24 22:13 Temperature Pulse Rate 83 91 70 Respiratory Rate 18 16 18 Blood Pressure 158/85 H 158/85 H 151/69 H Pulse Oximetry 95 96 93 Oxygen Delivery 08/13/24 22:41 08/14/24 02:47 08/14/24 02:47 Temperature 98.4 F Pulse Rate 68 83 Respiratory Rate 20 18 Blood Pressure 143/67 H 141/69 H Pulse Oximetry 90 100 100 Oxygen Delivery Room Air 08/14/24 04:00 08/14/24 06:00 08/14/24 08:00 Temperature 98.8 F Pulse Rate 70 67 8 L Respiratory Rate 18 Blood Pressure 131/64 Pulse Oximetry 94 Oxygen Delivery 08/14/24 08:00 08/14/24 08:00 08/14/24 08:21 Temperature Pulse Rate Respiratory Rate Blood Pressure 131/64 130/74 Pulse Oximetry Oxygen Delivery Room Air 08/14/24 08:21 08/14/24 12:00 08/14/24 12:00 Temperature 98 F Pulse Rate 76 Respiratory Rate 20 Blood Pressure 118/71 128/69 Pulse Oximetry 9 L Oxygen Delivery Room Air 08/14/24 16:00 Temperature 98.3 F Pulse Rate 76 Respiratory Rate 18 Blood Pressure 129/74 Pulse Oximetry 90 Oxygen Delivery Intake/Output Intake/Output: Intake & Output 08/11/24 08/12/24 08/13/24 08/14/24 23:59 23:59 23:59 23:59 Intake Total 1000 588.7 Output Total 0 Balance 1000 588.7 Meds/Results Medications: Active Medications Generic Name Dose Route Start Last Admin Trade Name Freq PRN Reason Stop Dose Admin Acetaminophen 650 mg 08/13/24 18:32 Acetaminophen 325 Mg Tablet PO Q4H PRN Mild Pain (1-3) or Fever Amlodipine Besylate 5 mg 08/14/24 09:00 08/14/24 09:52 Amlodipine Besylate 5 Mg Tablet PO 5 mg DAILY ARINA Administration Aspirin 81 mg 08/14/24 08:45 08/14/24 09:52 Aspirin 81 Mg Chewable Tablet PO 81 mg DAILY@0800 ARINA Administration Atorvastatin Calcium 40 mg 08/14/24 09:00 08/14/24 09:52 Atorvastatin 40 Mg Tablet PO 40 mg DAILY ARINA Administration Enoxaparin Sodium 40 mg 08/14/24 09:00 08/14/24 09:52 Enoxaparin 40 Mg/0.4 Ml Syringe SUB-Q 40 mg DAILY ARINA Administration Sodium Chloride 1,000 mls @ 125 mls/hr 08/13/24 18:35 08/14/24 02:47 Normal Saline Iv IV CONT 0 mls/hr .Q8H ARINA Infusion Metoprolol Tartrate 25 mg 08/14/24 21:00 Metoprolol Tartrate 25 Mg Tablet PO Q12HR ARINA Ondansetron HCl 4 mg 08/13/24 18:32 Ondansetron Inj 4 Mg/2 Ml Vial IV PUSH Q4H PRN Nausea Oseltamivir Phosphate 30 mg 08/14/24 06:00 08/14/24 06:36 Oseltamivir Phosphate 30 Mg Capsule PO 08/18/24 18:01 30 mg Q12H ARINA Administration Perflutren Lipid Microsphere 0 ml 08/14/24 01:34 Perflutren Lipid Microspheres 1.5 Ml Vial Diluted To 10 Ml Total Volume IV PUSH 08/17/24 01:34 ONCE PRN adequate visualization Protocol Radiology Results: ITS Impressions Head CT 08/13/24 16:48 IMPRESSION: No acute intracranial process. Chest X-Ray 08/13/24 16:53 IMPRESSION: Subsegmental right and segmental left mid lung opacities may represent infection. Recommend radiographic follow-up to ensure resolution. Possible small left pleural effusion Cervical Spine CT 08/13/24 16:58 IMPRESSION: No acute fracture or traumatic malalignment in the cervical spine. Labs Labs: Laboratory Results - last 24 hr 08/13/24 08/13/24 08/14/24 16:21 20:49 04:47 WBC 3.5 L RBC 4.59 Hgb 13.7 Hct 41.8 MCV 91.1 MCH 29.8 MCHC 32.8 RDW 13.8 Plt Count 188 MPV 10.5 H Immature Gran % (Auto) 0.3 Neut % (Auto) 58.0 Lymph % (Auto) 29.5 [place] % (Auto) 11.6 H Eos % (Auto) 0.0 Baso % (Auto) 0.6 Lymph # (Auto) 1.02 [place] # (Auto) 0.4 Eos # (Auto) 0.0 Baso # (Auto) 0.0 Abs Immat Gran (auto) 0.01 Absolute Neuts (auto) 2.0 Absolute Nucleated RBC 0.000 Nucleated RBC % 0.0 Sodium 138 Potassium 2.8 L* Chloride 112 H Carbon Dioxide 24 Anion Gap 2 L BUN 18 H Creatinine 0.70 Estim Creat Clear Calc 45 Estimated GFR > 60 Glucose 83 Calcium 7.8 L Magnesium 2.6 H 2.2 Total Bilirubin 0.9 AST 145 H ALT 56 H Alkaline Phosphatase 118 Total Creatine Kinase 2314 H Troponin I 1.360 H* Total Protein 6.0 L Albumin 3.3 L
[2024-08-14] MEDS: SODIUM CHLORIDE 0.9% IV 1,000 ML 125 ML IV CONT (19:11)
[2024-08-14] MEDS: METOPROLOL TARTRATE 25 MG TABLET PO (22:41)
[2024-08-15] VITALS (18 sets, daily range): BP systolic 122–169; BP diastolic 60–88; PULSE 61–78; RESP 14–18; TEMP 36.5–37; O2SAT 91–94
[2024-08-15] MEDS: SODIUM CHLORIDE 0.9% IV 1,000 ML 125 ML IV CONT (03:23)
[2024-08-15 05:25] LABS: Basophils Percent Auto 0.4 % (0.2-1.2); Hematocrit 42.9 % (37.0-47.0); Hemoglobin 13.8 g/dL (12.0-15.0); Immature Granulocyte Absolute 0.01 K/mm3 (0.00-0.031); Immature Granulocyte Percent A 0.2 % (0-0.5); Lymphocytes Absolute Auto 1.61 K/mm3 (0.9-3.2); Lymphocytes Percent Auto 34.8 % (18.3-44.2); Mean Corpuscular HGB Conc 32.2 g/dl (32-36); Mean Corpuscular Hemoglobin 29.1 pg (26-34); Mean Corpuscular Volume 90.3 fl (80-100); Mean Platelet Volume 10.4 fl (7.4-10.4); Monocytes Absolute Auto 0.5 K/mm3 (0.1-0.6); Monocytes Percent Auto 9.7 % (2.6-8.5); Neutrophils Absolute Auto 2.5 K/mm3 (1.3-6.7); Neutrophils Percent Auto 54.9 % (45.5-73.1); Platelet Count Result 200 k/mm3 (150-375); Red Blood Count 4.75 M/mm3 (4.2-5.4); White Blood Count 4.6 K/mm3 (4.5-10.0)
[2024-08-15 05:31] LABS: Alanine Aminotransferase 52 U/L (6-35); Albumin Level 3.5 g/dL (3.5-5.1); Alkaline Phosphatase 121 U/L (38-126); Anion Gap 5 mmol/L (4-12); Aspartate Amino Transferase 145 U/L (14-36); Bilirubin,Total 0.9 mg/dL (0.2-1.3); Blood Urea Nitrogen 10 mg/dL (7-17); Carbon Dioxide 24 mmol/L (22-30); Chloride 110 mmol/L (98-107); Estimated CRCL calculation 52 ml/min; Estimated Glomerular Filt Rate > 60; Glucose 89 mg/dL (65-110); Potassium 3.8 mmol/L (3.4-5.0); Sodium 139 mmol/L (137-145)
[2024-08-15 05:32] LABS: Creatine Kinase 1567 U/L (30-135)
[2024-08-15] MEDS: OSELTAMIVIR PHOSPHATE 30 MG CAPSULE PO (05:35)
[2024-08-15 10:28] LABS: Troponin I 0.418 ng/mL (0.000-0.034)
[2024-08-15] MEDS: amLODIPine BESYLATE 5 MG TABLET PO (10:48)
[2024-08-15] MEDS: ASPIRIN 81 MG CHEWABLE TABLET PO (10:48)
[2024-08-15] MEDS: ENOXAPARIN 40 MG/0.4 ML SYRINGE SUB-Q (10:49)
[2024-08-15] MEDS: METOPROLOL TARTRATE 25 MG TABLET PO ×2 (10:49→20:31)
[2024-08-15 13:36] LABS: Add Urine Microscopic? YES; Appearance Urine Clear (Clear); Bacteria Urine 4+ /hpf; Bilirubin Urine Negative (Negative); Blood Urine Negative (Negative); Color Urine Yellow (Yellow); Glucose Urine UA Negative (Negative); Ketones Urine 2+ mg/dL (Negative); Leukocyte Esterase Ur Trace LEU/UL (Negative); Nitrate Urine Positive (Negative); Non Pathogenic Casts 0-2; Protein Urine Negative (Negative); RBC Urine 0-2 /hpf (0-2); Specific Grav Ur 1.011 (1.001-1.035); Squamous Epithelial Cell Urine None Seen /hpf (Few); Urobilinogen Urine 0.2 mg/dL (<2.0); pH Urine 6.5 (5.0-9.0)
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
--- NOTE | 2024-08-15 15:42 | PC.NURSE ---
pt medical status-report given to Vianey RN - pt transferred to room 244 via bed accompained by staff- pt belongings with pt
--- NOTE | 2024-08-15 16:15 | PC.NURSE ---
1530- pt increased agitation- will not stay in bed-unsteady gait, hollering / screaming aloud-wanting to go home-staff in room - Dr. Smith notified. Charge nurse Renee DAVIS called son -and son informed that this is normal behavior at home and they are trying to get her placed somewhere- Son states he is unable to come to the hospital.
--- NOTE | 2024-08-15 16:22 | P.PNCA_ITS ---
Progress Note: A&P Assessment and Plan (1) Rhabdomyolysis: Code(s): M62.82 - Rhabdomyolysis Status: Acute (2) Non-ST elevation [place] (NSTEMI): Code(s): I21.4 - Non-ST elevation (NSTEMI) myocardial infarction Status: Acute (3) Hypokalemia: Code(s): E87.6 - Hypokalemia Status: Acute Plan 1. NSTEMI 2. Rhabdomyolysis 3. hypokalemia 4. influenza A -I suspect she had a recent event, most likely a few weeks ago -will continue heparin for 48 hours if no contraindication -continue aspirin 81 mg, Lipitor 40 mg -continue metoprolol 25 mg p.o b.i.d. -echo to assess wall motion and LV systolic function, echo still pending -she will need a cardiac catheterization. We did discuss a cardiac catheterization with her yesterday however with a history of cognitive dysfunction and memory loss and confusion will wait for discussion with family prior to any invasive evaluation -rest as per primary team Subjective Date/time seen: 08/15/24 16:22 Interval history: She has become confused overnight Denies any chest pain Troponin decreased to 0.4 Review of Systems Review of Systems: 12 systems were reviewed and are negativ e except for as per HPI. Exam Narrative: General: Mildly ill-appearing elderly female sitting up in bed in no acute distress. Weight: 59 kg. BMI: 23.0. HEENT: 1.5 to 2 cm linear laceration over the left forehead. PERRL, EOMI. Sclera anicteric. Neck: Supple. No midline vertebral tenderness. Respiratory: Respirations are nonlabored. Lung sounds are a bit coarse but otherwise clear to auscultation. Cardiovascular: Regular rate and rhythm with S1-S2. Gastrointestinal: Abdomen is soft, nontender, and nondistended with positive bowel sounds. Skin: Warm and dry. Laceration over the left forehead as above. There are some scabbed areas on the dorsum of the fingers. Old bruise on the right knee. Extremities: No cyanosis, clubbing, or edema. Radial and pedal pulses intact. Neurological: Alert and oriented x3, she seems a bit confused with regards to how she fell. Cranial nerves 2-12 are grossly intact. Speech is clear. No facial asymmetry. Hand retention representative and foot pushes are equal bilaterally. She seems generally weak without gross focal deficit. Psychiatric: Pleasant and cooperative with appropriate mood. Seems a bit confused. Objective Data Vital Signs Vital Signs: Vital Signs - 24 hr 08/14/24 18:00 08/14/24 20:00 08/14/24 21:32 Temperature 36.7 C Pulse Rate 91 73 85 Respiratory Rate 18 Blood Pressure 149/86 H Pulse Oximetry 94 Oxygen Delivery 08/14/24 21:33 08/14/24 22:00 08/14/24 22:00 Temperature Pulse Rate 85 74 Respiratory Rate 18 Blood Pressure 149/86 H Pulse Oximetry 94 Oxygen Delivery Room Air 08/14/24 22:41 08/15/24 00:00 08/15/24 00:00 Temperature Pulse Rate 80 67 65 Respiratory Rate 18 Blood Pressure Pulse Oximetry 91 Oxygen Delivery Room Air 08/15/24 00:10 08/15/24 02:00 08/15/24 03:47 Temperature 36.8 C 37.0 C Pulse Rate 65 62 63 Respiratory Rate 18 18 Blood Pressure 144/75 H 138/70 Pulse Oximetry 91 93 Oxygen Delivery 08/15/24 04:00 08/15/24 04:40 08/15/24 05:48 Temperature Pulse Rate 62 63 78 Respiratory Rate 18 Blood Pressure Pulse Oximetry 93 Oxygen Delivery Room Air 08/15/24 08:00 08/15/24 10:08 08/15/24 10:49 Temperature 36.5 C Pulse Rate 68 68 Respiratory Rate 16 Blood Pressure 152/80 H Pulse Oximetry 94 Oxygen Delivery Room Air 08/15/24 11:18 08/15/24 11:18 08/15/24 11:19 Temperature 36.9 C 36.9 C Pulse Rate 71 71 Respiratory Rate 18 18 Blood Pressure 169/88 H 169/88 H 144/79 H Pulse Oximetry 92 92 Oxygen Delivery 08/15/24 11:19 Temperature Pulse Rate Respiratory Rate Blood Pressure 148/71 H Pulse Oximetry Oxygen Delivery Intake/Output Intake/Output: Intake & Output 08/12/24 08/13/24 08/14/24 08/15/24 23:59 23:59 23:59 23:59 Intake Total 1000 1528.7 1000 Output Total 850 900 Balance 1000 678.7 100 Meds/Results Medications: Active Medications Generic Name Dose Route Start Last Admin Trade Name Freq PRN Reason Stop Dose Admin Acetaminophen 650 mg 08/13/24 18:32 Acetaminophen 325 Mg Tablet PO Q4H PRN Mild Pain (1-3) or Fever Amlodipine Besylate 5 mg 08/14/24 09:00 08/15/24 10:48 Amlodipine Besylate 5 Mg Tablet PO 5 mg DAILY ARINA Administration Aspirin 81 mg 08/14/24 08:45 08/15/24 10:48 Aspirin 81 Mg Chewable Tablet PO 81 mg DAILY@0800 ARINA Administration Atorvastatin Calcium 40 mg 08/14/24 09:00 08/14/24 09:52 Atorvastatin 40 Mg Tablet PO 40 mg DAILY ARINA Administration Enoxaparin Sodium 40 mg 08/14/24 09:00 08/15/24 10:49 Enoxaparin 40 Mg/0.4 Ml Syringe SUB-Q 40 mg DAILY ARINA Administration Metoprolol Tartrate 25 mg 08/14/24 21:00 08/15/24 10:49 Metoprolol Tartrate 25 Mg Tablet PO 25 mg Q12HR ARINA Administration Ondansetron HCl 4 mg 08/13/24 18:32 Ondansetron Inj 4 Mg/2 Ml Vial IV PUSH Q4H PRN Nausea Oseltamivir Phosphate 30 mg 08/14/24 06:00 08/15/24 05:35 Oseltamivir Phosphate 30 Mg Capsule PO 30 mg Q12H ARINA Administration Perflutren Lipid Microsphere 0 ml 08/14/24 01:34 Perflutren Lipid Microspheres 1.5 Ml Vial Diluted To 10 Ml Total Volume IV PUSH 08/17/24 01:34 ONCE PRN adequate visualization Protocol Radiology Results: ITS Impressions Head CT 08/13/24 16:48 IMPRESSION: No acute intracranial process. Chest X-Ray 08/13/24 16:53 IMPRESSION: Subsegmental right and segmental left mid lung opacities may represent infection. Recommend radiographic follow-up to ensure resolution. Possible small left pleural effusion Cervical Spine CT 08/13/24 16:58 IMPRESSION: No acute fracture or traumatic malalignment in the cervical spine. Labs Labs: Laboratory Results - last 24 hr 08/15/24 08/15/24 08/15/24 04:48 09:46 13:13 WBC 4.6 RBC 4.75 Hgb 13.8 Hct 42.9 MCV 90.3 MCH 29.1 MCHC 32.2 RDW 14.0 Plt Count 200 MPV 10.4 Immature Gran % (Auto) 0.2 Neut % (Auto) 54.9 Lymph % (Auto) 34.8 [place] % (Auto) 9.7 H Eos % (Auto) 0.0 Baso % (Auto) 0.4 Lymph # (Auto) 1.61 [place] # (Auto) 0.5 Eos # (Auto) 0.0 Baso # (Auto) 0.0 Abs Immat Gran (auto) 0.01 Absolute Neuts (auto) 2.5 Absolute Nucleated RBC 0.000 Nucleated RBC % 0.0 Sodium 139 Potassium 3.8 Chloride 110 H Carbon Dioxide 24 Anion Gap 5 BUN 10 D Creatinine 0.60 L Estim Creat Clear Calc 52 Estimated GFR > 60 Glucose 89 Calcium 8.0 L Magnesium 2.0 Total Bilirubin 0.9 AST 145 H ALT 52 H Alkaline Phosphatase 121 Total Creatine Kinase 1567 H Troponin I 0.418 H* Total Protein 7.0 Albumin 3.5 Urine Color Yellow Urine Appearance Clear Urine pH 6.5 Ur Specific [place] 1.011 Urine Protein Negative Urine Glucose (UA) Negative Urine Ketones 2+ H Ur Blood (Man) Negative Urine Nitrate Positive H Urine Bilirubin Negative Urine Urobilinogen 0.2 Leukocyte Esterase Rfl Trace H Urine RBC 0-2 Urine WBC 11-20 H Ur Squamous Epith Cells None seen Urine Bacteria 4+ H Urine Casts 0-2
--- NOTE | 2024-08-15 16:45 | PCOTNOTE ---
Attempted OT evaluation. RN said to hold due to increased agitation.
[2024-08-15] MEDS: SODIUM CHLORIDE 0.9% IV 1,000 ML 75 ML IV CONT (22:37)
[2024-08-15] MEDS: QUEtiapine FUMARATE 12.5 MG TABLET PO (22:37)
[2024-08-16] VITALS (25 sets, daily range): BP systolic 110–139; BP diastolic 51–72; PULSE 52–80; RESP 16–20; TEMP 36.4–36.7; O2SAT 92–98
--- NOTE | 2024-08-16 01:34 | ECHO_ITS ---
Patient Info Name: Radha Guerrero Age: 79 years : 1945 Gender: Female Ht: 63 in Wt: 127 lbs BSA: 1.61 m2 HR: 54 bpm BP: 135 / 61 mmHg Heart Rhythm: Sinus Rhythm Technical Quality: Fair Exam Date: 08/16/2024 8:28 AM Exam Location: Echo Lab Patient Status: Inpatient Admit Date: 08/15/2024 Staff Ordering Physician: Shayna Linares PA-C Cooper Helper: Laya Shepard RDCS Attending Provider: Dru Menjivar MD Referring Physician: Milagros ARCEO; Exam Type: CA echo dop color flow w con Study Info Indications - nstemi Contrast/Agitated Saline Contrast/Ag. Saline: Definity Amount: 2.00 ml Administered By: Laya Shepard RDCS Existing IV Access: Yes IV Access Condition: patent with no signs of infiltration Summary 1. Left ventricular chamber dimension is normal. 2. Left ventricular systolic function is normal with an ejection fraction by Biplane Method of Discs of 57 %. 3. There is no increased left ventricular wall thickness. 4. Left ventricular wall motion is normal. 5. The left ventricular diastolic function is grade I diastolic dysfunction. 6. Right ventricular chamber dimension is normal. 7. Right ventricular systolic function is normal. Left Ventricle Left ventricular chamber dimension is normal. Left ventricular systolic function is normal with an ejection fraction by Biplane Method of Discs of 57 %. There is no increased left ventricular wall thickness. Left ventricular wall motion is normal. The left ventricular diastolic function is grade I diastolic dysfunction. Right Ventricle Right ventricular chamber dimension is normal. Right ventricular systolic function is normal. Left Atria Left atrial chamber dimension is normal. Right Atria Right atrial chamber dimension is normal. Aortic Valve The aortic valve is trileaflet. There is mild aortic valve sclerosis. There is no aortic valve stenosis. There is no aortic valve regurgitation. Pulmonic Valve The pulmonic valve is normal. There is no pulmonic valve stenosis. There is no pulmonic regurgitation. Mitral Valve The mitral valve has normal leaflets. There is no mitral valve stenosis. There is no mitral valve regurgitation. Tricuspid Valve The tricuspid valve leaflets are normal. There is no significant tricuspid valve stenosis. There is mild tricuspid valve regurgitation. No pulmonary hypertension, estimated pulmonary arterial systolic pressure is 17 mmHg. Pericardium/Pleural The pericardium appears normal. There is no pericardial effusion. Inferior Vena Cava Normal inferior vena cava with >50% collapse upon inspiration consistent with normal right atrial pressure, 3 mmHg. Aorta The aortic root size at the sinus of Valsalva is normal. The prox ascending aorta size is normal. Left Ventricular Outflow Tract Name Value Normal LVOT 2D LVOT Diameter 1.96 cm LVOT Doppler LVOT Peak Gradient 7 mmHg LVOT Mean Gradient 3 mmHg LVOT VTI 29.11 cm LVOT VTI/AV VTI Ratio 1.05 LVOT Stroke Volume 87.99 ml LVOT CO 4.83 l/min LVOT CI 3.01 L/min/m2 Pulmonic Valve Name Value Normal RVOT Doppler RVOT Peak Gradient 3 mmHg PV Doppler PV Peak Gradient 3 mmHg Mitral Valve Name Value Normal MV Doppler MV Decel Ransom 636.27 cm/s2 MV PHT 0 s MV Area (PHT) 5.05 cm2 4.00-5.00 MV Diastolic Function MV E Peak Velocity 95.61 cm/s MV A Peak Velocity 111.73 cm/s MV E/A 0.86 MV Decel Time 0 s MV Annular TDI MV E/e' (Septal) 24.82 <=8.00 MV E/e' (Lateral) 12.29 <=8.00 MV E/e' (Average) 18.55 Tricuspid Valve Name Value Normal TV Regurgitation Doppler TR Peak Velocity 189.11 cm/s TR Peak Gradient 14 mmHg Estimated PAP/RSVP RA Pressure 3 mmHg <=5 PA Systolic Pressure 17 mmHg <36 RV Systolic Pressure 17 mmHg <36 Aorta Name Value Normal Ascending Aorta Ao Root Diameter (MM) 2.94 cm Ao Root Diam Index (MM) 1.83 cm/m2 Aortic Valve Name Value Normal AV Doppler AV Peak Velocity 144.33 cm/s AV Peak Gradient 8 mmHg AV Mean Gradient 4 mmHg AV VTI 27.73 cm AV Area (Cont Eq VTI) 3.17 cm2 >=3.00 AV Area (Cont Eq Feroz) 2.68 cm2 AV Regurgitation 2D LVOT Area 3.02 cm2 Ventricles Name Value Normal LV Dimensions 2D/MM LVOT Diameter 1.96 cm LV Fractional Shortening/Ejection Fraction 2D/MM LV Diastolic Volume (4C MOD) 44.12 ml LV EF (4C MOD) 65 % LV Diastolic Volume (2C MOD) 34.73 ml LV EF (2C MOD) 50 % LV Diastolic Volume (BP MOD) 40.13 ml 46.00-106.00 LV Diastolic Volume Index (BP MOD) 0.03 l/m2 0.03-0.06 LV Systolic Volume (BP MOD) 17.24 ml 14.00-42.00 LV Systolic Volume Index (BP MOD) 0.01 l/m2 0.01-0.02 LV EF (BP MOD) 57 % 54-74 LV Diastolic Length (4C) 7.10 cm LV Systolic Length (4C) 5.08 cm LV Stroke Volume (4C MOD) 28.70 ml Atria Name Value Normal LA Dimensions LA Dimension (MM) 3.55 cm 2.70-3.80 LA Volume (4C A-L) 47.12 ml LA Volume (BP A-L) 40.18 ml RA Dimensions RA Area (4C) 9.76 cm2 <=18.00 Report Signatures
[2024-08-16 06:44] LABS: Basophils Percent Auto 0.5 % (0.2-1.2); Hematocrit 37.6 % (37.0-47.0); Hemoglobin 12.5 g/dL (12.0-15.0); Immature Granulocyte Absolute 0.01 K/mm3 (0.00-0.031); Immature Granulocyte Percent A 0.2 % (0-0.5); Lymphocytes Absolute Auto 1.46 K/mm3 (0.9-3.2); Lymphocytes Percent Auto 34.9 % (18.3-44.2); Mean Corpuscular HGB Conc 33.2 g/dl (32-36); Mean Corpuscular Hemoglobin 29.3 pg (26-34); Mean Corpuscular Volume 88.1 fl (80-100); Mean Platelet Volume 10.5 fl (7.4-10.4); Monocytes Absolute Auto 0.4 K/mm3 (0.1-0.6); Monocytes Percent Auto 9.1 % (2.6-8.5); Neutrophils Absolute Auto 2.3 K/mm3 (1.3-6.7); Neutrophils Percent Auto 55.3 % (45.5-73.1); Platelet Count Result 161 k/mm3 (150-375); Red Blood Count 4.27 M/mm3 (4.2-5.4); Red Cell Distribution Width 13.8 % (11.5-14.5); White Blood Count 4.2 K/mm3 (4.5-10.0)
[2024-08-16 07:01] LABS: Alanine Aminotransferase 42 U/L (6-35); Albumin Level 2.9 g/dL (3.5-5.1); Alkaline Phosphatase 92 U/L (38-126); Anion Gap 4 mmol/L (4-12); Aspartate Amino Transferase 96 U/L (14-36); Bilirubin,Total 0.8 mg/dL (0.2-1.3); Blood Urea Nitrogen 14 mg/dL (7-17); Calcium 7.7 mg/dL (8.4-10.2); Carbon Dioxide 24 mmol/L (22-30); Chloride 109 mmol/L (98-107); Creatine Kinase 926 U/L (30-135); Estimated CRCL calculation 52 ml/min; Estimated Glomerular Filt Rate > 60; Glucose 80 mg/dL (65-110); Potassium 2.6 mmol/L (3.4-5.0); Sodium 137 mmol/L (137-145)
[2024-08-16 08:48] LABS: Potassium 2.7 mmol/L (3.4-5.0)
[2024-08-16] MEDS: PERFLUTREN LIPID MICROSPHERES 1.5 ML VIAL DILUTED TO 10 ML TOTAL VOLUME IV PUSH (08:58)
[2024-08-16] MEDS: ASPIRIN 81 MG CHEWABLE TABLET PO (09:12)
[2024-08-16] MEDS: METOPROLOL TARTRATE 25 MG TABLET PO ×2 (09:12→21:42)
[2024-08-16] MEDS: amLODIPine BESYLATE 5 MG TABLET PO (09:13)
--- NOTE | 2024-08-16 09:48 | ECG_ITS ---
Test Date: 2024-08-16 10:10:50 Measurements Intervals [place] Rate: 51 P: 11 [place]: 151 QRS: -22 QRSD: 102 T: -31 QT: 468 QTc: 433 Interpretive Statements SINUS BRADYCARDIA POSSIBLE ANTERIOR MYOCARDIAL INFARCTION , PROBABLY OLD [30 ms Q WAVE IN V3/V4, OR R < 0.2 mV IN V4] Compared to ECG 08/13/2024 16:17:17 Sinus rhythm no longer present Myocardial infarct finding still present Electronically Signed On 08-19-2024 15:02:11 [facility] by John Pritchett M.D.
[2024-08-16] MEDS: POTASSIUM CHLORIDE INJ 40 MEQ in SODIUM CHLORIDE 0.9% IV 500 ML 130 MEQ IVPB (09:56)
[2024-08-16 10:46] LABS: Hepatitis B Surface Antigen Negative (Negative)
[2024-08-16 10:51] LABS: HAV RESULT Negative (Negative); Hepatitis B Core IgM Result Negative (Negative)
[2024-08-16 11:03] LABS: Hepatitis C Virus Antibody Negative (Negative)
[2024-08-16] MEDS: ENOXAPARIN 40 MG/0.4 ML SYRINGE SUB-Q (12:12)
--- NOTE | 2024-08-16 12:56 | IVDEFINITY ---
Prior to administration of IV Definity the patient was educated on the risks and benefits of the imaging enhancing agent including potential adverse side effects. The patient verbalized understanding. Allergies were verified. No exclusion criteria were identified and at least one of the following inclusion criteria were met: 1) physician request, 2) patient technically difficult to image (per the [employer]ocardi[employer] guidelines of two or more segments not discernable within the apical view), or 3) questionable left ventricular function. ?
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
--- NOTE | 2024-08-16 17:00 | P.PNCA_ITS ---
Progress Note: A&P Assessment and Plan (1) Rhabdomyolysis: Code(s): M62.82 - Rhabdomyolysis Status: Acute (2) Non-ST elevation IN (NSTEMI): Code(s): I21.4 - Non-ST elevation (NSTEMI) myocardial infarction Status: Acute (3) Hypokalemia: Code(s): E87.6 - Hypokalemia Status: Acute Plan 1. NSTEMI 2. Rhabdomyolysis 3. hypokalemia 4. influenza A -I suspect she had a recent event, most likely a few weeks ago. ECG shows evolving changes of inferior wall IN -will continue heparin for 48 hours if no contraindication -continue aspirin 81 mg, Lipitor 40 mg -continue metoprolol 25 mg p.o b.i.d. -echo to assess wall motion and LV systolic function, echo still pending -she will need a cardiac catheterization. We did discuss a cardiac catheterization with her yesterday however with a history of cognitive dysfunction and memory loss and confusion will wait for discussion with family prior to any invasive evaluation. Attempted twice to contact the but was unable to do so. No other family member available -will hold off cardiac catheterization till we have more discussion with family. Will proceed with medical management for now check cardiac catheterization as an outpatient if she has symptoms -rest as per primary team Subjective Date/time seen: 08/16/24 17:00 Interval history: No acute events overnight Patient much more calm and cooperative. She feels well and denies complaints. Review of Systems Review of Systems: 12 systems were reviewed and are negativ e except for as per HPI. Exam Narrative: General: Mildly ill-appearing elderly female sitting up in bed in no acute distress. Weight: 59 kg. BMI: 23.0. HEENT: 1.5 to 2 cm linear laceration over the left forehead. PERRL, EOMI. Sclera anicteric. Neck: Supple. No midline vertebral tenderness. Respiratory: Respirations are nonlabored. Lung sounds are a bit coarse but o therwise clear to auscultation. Cardiovascular: Regular rate and rhythm with S1-S2. Gastrointestinal: Abdomen is soft, nontender, and nondistended with positive bowel sounds. Skin: Warm and dry. Laceration over the left forehead as above. There are some scabbed areas on the dorsum of the fingers. Old bruise on the right knee. Extremities: No cyanosis, clubbing, or edema. Radial and pedal pulses intact. Neurological: Alert and oriented x3, she seems a bit confused with regards to how she fell. Cranial nerves 2-12 are grossly intact. Speech is clear. No facial asymmetry. Hand audio engineer and foot pushes are equal bilaterally. She seems generally weak without gross focal deficit. Psychiatric: Pleasant and cooperative with appropriate mood. Seems a bit confused. Objective Data Vital Signs Vital Signs: Vital Signs - 24 hr 08/15/24 18:00 08/15/24 20:00 08/15/24 20:00 Temperature 36.8 C Pulse Rate 62 65 64 Respiratory Rate 14 Blood Pressure 122/60 Pulse Oximetry 92 Oxygen Delivery 08/15/24 20:31 08/15/24 22:00 08/16/24 00:00 Temperature Pulse Rate 63 61 57 L Respiratory Rate Blood Pressure Pulse Oximetry Oxygen Delivery 08/16/24 00:12 08/16/24 02:00 08/16/24 04:00 Temperature Pulse Rate 80 57 L 53 L Respiratory Rate 16 Blood Pressure 133/58 L Pulse Oximetry 92 Oxygen Delivery 08/16/24 04:13 08/16/24 06:09 08/16/24 08:00 Temperature 36.7 C Pulse Rate 61 54 L 56 L Respiratory Rate 18 Blood Pressure 135/61 Pulse Oximetry 93 Oxygen Delivery 08/16/24 08:45 08/16/24 09:12 08/16/24 10:00 Temperature 36.6 C Pulse Rate 58 L 56 L 52 L Respiratory Rate 18 Blood Pressure 119/51 L Pulse Oximetry 93 Oxygen Delivery 08/16/24 11:57 08/16/24 12:00 08/16/24 13:10 Temperature 36.4 C L Pulse Rate 53 L 53 L Respiratory Rate 20 Blood Pressure 110/61 Pulse Oximetry 96 Oxygen Delivery Room Air 08/16/24 14:00 08/16/24 15:53 08/16/24 15:53 Temperature 36.7 C 36.7 C Pulse Rate 54 L 56 L 56 L Respiratory Rate 18 18 Blood Pressure 135/62 135/62 Pulse Oximetry 97 97 Oxygen Delivery 08/16/24 15:57 08/16/24 15:58 Temperature Pulse Rate 60 60 Respiratory Rate Blood Pressure 125/62 113/64 Pulse Oximetry Oxygen Delivery Intake/Output Intake/Output: Intake & Output 12/31/24 01/01/25 01/02/25 01/03/25 23:59 23:59 23:59 23:59 Intake Total 1000 1528.7 1120 290 Output Total 850 1250 Balance 1000 678.7 -130 290 Meds/Results Medications: Active Medications Generic Name Dose Route Start Last Admin Trade Name Freq PRN Reason Stop Dose Admin Acetaminophen 650 mg 08/13/24 18:32 Acetaminophen 325 Mg Tablet PO Q4H PRN Mild Pain (1-3) or Fever Amlodipine Besylate 5 mg 08/14/24 09:00 08/16/24 09:13 Amlodipine Besylate 5 Mg Tablet PO 5 mg DAILY ARINA Administration Aspirin 81 mg 08/14/24 08:45 08/16/24 09:12 Aspirin 81 Mg Chewable Tablet PO 81 mg DAILY@0800 ARINA Administration Atorvastatin Calcium 40 mg 08/14/24 09:00 08/14/24 09:52 Atorvastatin 40 Mg Tablet PO 40 mg DAILY ARINA Administration Enoxaparin Sodium 40 mg 08/14/24 09:00 08/16/24 12:12 Enoxaparin 40 Mg/0.4 Ml Syringe SUB-Q 40 mg DAILY ARINA Administration Ceftriaxone Sodium 1 gm in 50 mls @ 100 mls/hr 08/16/24 09:00 08/16/24 09:43 Rocephin 1 Gm/Ns 50 Ml IVPB Infused Q24H ARINA Infusion Metoprolol Tartrate 25 mg 08/14/24 21:00 08/16/24 09:12 Metoprolol Tartrate 25 Mg Tablet PO 25 mg Q12HR ARINA Administration Ondansetron HCl 4 mg 08/13/24 18:32 Ondansetron Inj 4 Mg/2 Ml Vial IV PUSH Q4H PRN Nausea Oseltamivir Phosphate 30 mg 08/14/24 06:00 08/15/24 05:35 Oseltamivir Phosphate 30 Mg Capsule PO 30 mg Q12H ARINA Administration Quetiapine Fumarate 12.5 mg 08/15/24 21:00 08/15/24 22:37 Quetiapine Fumarate 12.5 Mg Tablet PO 12.5 mg HS ARINA Administration Radiology Results: ITS Impressions Head CT 08/13/24 16:48 IMPRESSION: No acute intracranial process. Chest X-Ray 08/13/24 16:53 IMPRESSION: Subsegmental right and segmental left mid lung opacities may represent infection. Recommend radiographic follow-up to ensure resolution. Possible small left pleural effusion Cervical Spine CT 08/13/24 16:58 IMPRESSION: No acute fracture or traumatic malalignment in the cervical spine. Upper Quadrant Ultrasound 08/16/24 09:52 IMPRESSION: 1. Cholelithiasis in normal-appearing gallbladder with no intra or extra hepatic biliary ductal dilation. 2. Diffuse hepatic steatosis. Labs Labs: Laboratory Results - last 24 hr 08/16/24 08/16/24 08/16/24 06:35 08:20 08:24 WBC 4.2 L RBC 4.27 Hgb 12.5 Hct 37.6 MCV 88.1 MCH 29.3 MCHC 33.2 RDW 13.8 Plt Count 161 MPV 10.5 H Immature Gran % (Auto) 0.2 Neut % (Auto) 55.3 Lymph % (Auto) 34.9 [place] % (Auto) 9.1 H Eos % (Auto) 0.0 Baso % (Auto) 0.5 Lymph # (Auto) 1.46 [place] # (Auto) 0.4 Eos # (Auto) 0.0 Baso # (Auto) 0.0 Abs Immat Gran (auto) 0.01 Absolute Neuts (auto) 2.3 Absolute Nucleated RBC 0.000 Nucleated RBC % 0.0 Sodium 137 Potassium 2.6 L* 2.7 L* Chloride 109 H Carbon Dioxide 24 Anion Gap 4 BUN 14 Creatinine 0.60 L Estim Creat Clear Calc 52 Estimated GFR > 60 Glucose 80 Calcium 7.7 L Total Bilirubin 0.8 AST 96 H ALT 42 H Alkaline Phosphatase 92 Total Creatine Kinase 926 H Total Protein 6.0 L Albumin 2.9 L Hepatitis A IgM Ab Negative Hep Bs Antigen Negative Hep B Core IgM Ab Negative Hepatitis C Ab Screen Negative
[2024-08-16 17:06] LABS: Potassium 3.7 mmol/L (3.4-5.0)
[2024-08-16] MEDS: QUEtiapine FUMARATE 12.5 MG TABLET PO (21:43)
[2024-08-17] VITALS (22 sets, daily range): BP systolic 136–151; BP diastolic 59–86; PULSE 47–77; RESP 16–20; TEMP 36.4–36.7; O2SAT 93–99
[2024-08-17 05:38] LABS: Albumin Level 3.2 g/dL (3.5-5.1); Anion Gap 3 mmol/L (4-12); Blood Urea Nitrogen 13 mg/dL (7-17); Calcium 7.9 mg/dL (8.4-10.2); Carbon Dioxide 23 mmol/L (22-30); Chloride 111 mmol/L (98-107); Creatine Kinase 460 U/L (30-135); Estimated CRCL calculation 52 ml/min; Estimated Glomerular Filt Rate > 60; Glucose 82 mg/dL (65-110); Magnesium 2.2 mg/dL (1.6-2.3); Phosphorus 2.9 mg/dL (2.5-4.5); Potassium 2.9 mmol/L (3.4-5.0); Sodium 137 mmol/L (137-145)
[2024-08-17 05:52] LABS: Vitamin D 25 Hydroxy 13.5 ng/mL
[2024-08-17 06:42] LABS: Folic Acid 8.5 ng/mL (2.76->20)
[2024-08-17] MEDS: amLODIPine BESYLATE 5 MG TABLET PO (08:50)
[2024-08-17] MEDS: METOPROLOL TARTRATE 25 MG TABLET PO ×2 (08:50→20:29)
[2024-08-17] MEDS: ASPIRIN 81 MG CHEWABLE TABLET PO (08:50)
[2024-08-17] MEDS: ENOXAPARIN 40 MG/0.4 ML SYRINGE SUB-Q (08:53)
[2024-08-17] MEDS: POTASSIUM CHLORIDE INJ 40 MEQ in SODIUM CHLORIDE 0.9% IV 500 ML 130 MEQ IVPB (11:05)
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
[2024-08-17 17:36] LABS: Alanine Aminotransferase 50 U/L (6-35); Albumin Level 3.7 g/dL (3.5-5.1); Alkaline Phosphatase 113 U/L (38-126); Anion Gap 2 mmol/L (4-12); Aspartate Amino Transferase 86 U/L (14-36); Blood Urea Nitrogen 14 mg/dL (7-17); Calcium 8.4 mg/dL (8.4-10.2); Carbon Dioxide 26 mmol/L (22-30); Chloride 111 mmol/L (98-107); Estimated CRCL calculation 45 ml/min; Estimated Glomerular Filt Rate > 60; Glucose 115 mg/dL (65-110); Potassium 3.8 mmol/L (3.4-5.0); Sodium 139 mmol/L (137-145)
[2024-08-17] MEDS: POTASSIUM CHLORIDE 20 MEQ ER TABLET PO (18:36)
[2024-08-17] MEDS: QUEtiapine FUMARATE 12.5 MG TABLET PO (20:30)
[2024-08-18] VITALS (15 sets, daily range): BP systolic 120–172; BP diastolic 71–79; PULSE 47–70; RESP 16–24; TEMP 36.3–36.7; O2SAT 92–97
[2024-08-18 05:34] LABS: Anion Gap 4 mmol/L (4-12); Blood Urea Nitrogen 11 mg/dL (7-17); Carbon Dioxide 21 mmol/L (22-30); Chloride 113 mmol/L (98-107); Estimated CRCL calculation 52 ml/min; Estimated Glomerular Filt Rate > 60; Glucose 92 mg/dL (65-110); Potassium 3.3 mmol/L (3.4-5.0); Sodium 138 mmol/L (137-145)
[2024-08-18] MEDS: CEPHALEXIN 500 MG CAPSULE PO ×3 (06:34→17:55)
[2024-08-18] MEDS: amLODIPine BESYLATE 5 MG TABLET PO (09:35)
[2024-08-18] MEDS: CHOLECALCIFEROL 1,000 UNITS TABLET 1000 UNITS PO (09:35)
[2024-08-18] MEDS: ASPIRIN 81 MG CHEWABLE TABLET PO (09:35)
[2024-08-18] MEDS: METOPROLOL TARTRATE 25 MG TABLET PO ×2 (09:35→21:13)
[2024-08-18] MEDS: ENOXAPARIN 40 MG/0.4 ML SYRINGE SUB-Q (09:36)
[2024-08-18] MEDS: POTASSIUM CHLORIDE 20 MEQ ER TABLET PO (09:38)
[2024-08-18] MEDS: POTASSIUM CHLORIDE 20 MEQ ER TABLET 40 MEQ PO (09:40)
[2024-08-18] MEDS: CLOPIDOGREL BISULFATE 300 MG TABLET PO (11:31)
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
--- NOTE | 2024-08-18 19:21 | PM.PNCARD ---
Progress Note: A&P Assessment and Plan (1) Rhabdomyolysis: Code(s): M62.82 - Rhabdomyolysis Status: Acute (2) Non-ST elevation [place] (NSTEMI): Code(s): I21.4 - Non-ST elevation (NSTEMI) myocardial infarction Status: Acute (3) Hypokalemia: Code(s): E87.6 - Hypokalemia Status: Acute Plan 1. NSTEMI 2. Rhabdomyolysis 3. hypokalemia 4. influenza A -I suspect she had event in the past, may have been recent but the history is unreliable. However it is reassuring that her LV systolic function is preserved -although cardiac catheterization will be helpful, but with a history of cognitive dysfunction, memory loss and unreliable history will wait for discussion with family prior to any invasive evaluation. She can be discharged with the follow-up with cardiology as an outpatient for discussion of an invasive evaluation -continue aspirin 81 mg, Lipitor 40 mg -continue metoprolol 25 mg p.o b.i.d. -will add Plavix 75mg p.o. daily; uninterrupted dpt for at least 12 months -echo to assess wall motion and LV systolic function, echo still pending -rest as per primary team Subjective Date/time seen: 08/18/24 19:21 Interval history: No acute events overnight She is alert but confused Have been unable to contact Echo shows a preserved EF of 57% with no significant wall motion abnormality which is reassuring Review of Systems Review of Systems: 12 systems were reviewed and are negative except for as per HPI. Exam Narrative: General: Mildly ill-appearing elderly female sitting up in bed in no acute distress. Weight: 59 kg. BMI: 23.0. HEENT: 1.5 to 2 cm linear laceration over the left forehead. PERRL, EOMI. Sclera anicteric. Neck: Supple. No midline vertebral tenderness. Respiratory: Respirations are nonlabored. Lung sounds are a bit coarse but otherwise clear to auscultation. Cardiovascular: Regular rate and rhythm with S1-S2. Gastrointestinal: Abdomen is soft, nontender, and nondistended with positive bowel sounds. Skin: Warm and dry. Laceration over the left forehead as above. There are some scabbed areas on the dorsum of the fingers. Old bruise on the right knee. Extremities: No cyanosis, clubbing, or edema. Radial and pedal pulses intact. Neurological: Alert and oriented x3, she seems a bit confused with regards to how she fell. Cranial nerves 2-12 are grossly intact. Speech is clear. No facial asymmetry. Hand water quality specialist and foot pushes are equal bilaterally. She seems generally weak without gross focal deficit. Psychiatric: Pleasant and cooperative with appropriate mood. Seems a bit confused. Objective Data Vital Signs Vital Signs: Vital Signs - 24 hr 08/17/24 19:51 08/17/24 19:53 08/17/24 19:54 Temperature 36.7 C 36.7 C Pulse Rate 60 58 L Respiratory Rate 18 18 Blood Pressure 149/72 H 149/72 H 151/86 H Pulse Oximetry 95 99 Oxygen Delivery Fraction of Inspired Oxygen 08/17/24 20:00 08/17/24 20:20 08/17/24 20:29 Temperature Pulse Rate 59 L 66 Respiratory Rate Blood Pressure Pulse Oximetry Oxygen Delivery Room Air Fraction of Inspired Oxygen 08/17/24 22:00 08/18/24 00:00 08/18/24 00:10 Temperature Pulse Rate 54 L 48 L Respiratory Rate Blood Pressure Pulse Oximetry Oxygen Delivery Room Air Fraction of Inspired Oxygen 08/18/24 02:00 08/18/24 04:00 08/18/24 04:20 Temperature Pulse Rate 48 L 47 L Respiratory Rate Blood Pressure Pulse Oximetry Oxygen Delivery Room Air Fraction of Inspired Oxygen 08/18/24 04:25 08/18/24 06:00 08/18/24 08:00 Temperature 36.3 C L 36.3 C L Pulse Rate 58 L 55 L 60 Respiratory Rate 24 H 16 Blood Pressure 149/71 H 172/76 H Pulse Oximetry 94 92 Oxygen Delivery Fraction of Inspired Oxygen 08/18/24 09:30 08/18/24 09:30 08/18/24 09:30 Temperature 36.3 C L Pulse Rate 60 60 53 L Respiratory Rate 24 H 24 H Blood Pressure 149/71 H Pulse Oximetry 94 94 Oxygen Delivery Room Air Fraction of Inspired Oxygen 21 08/18/24 09:35 08/18/24 10:00 08/18/24 12:00 Temperature 36.3 C L Pulse Rate 60 53 L 52 L Respiratory Rate 20 Blood Pressure 120/77 Pulse Oximetry 97 Oxygen Delivery Fraction of Inspired Oxygen 08/18/24 12:00 08/18/24 12:00 08/18/24 16:00 Temperature 36.7 C Pulse Rate 52 L 53 L 59 L Respiratory Rate 20 24 H Blood Pressure 148/79 H Pulse Oximetry 97 97 Oxygen Delivery Room Air Fraction of Inspired Oxygen 21 08/18/24 16:00 08/18/24 16:00 Temperature Pulse Rate 66 59 L Respiratory Rate 24 H Blood Pressure Pulse Oximetry 97 Oxygen Delivery Room Air Fraction of Inspired Oxygen 21 Intake/Output Intake/Output: Intake & Output 08/15/24 08/16/24 08/17/24 08/18/24 23:59 23:59 23:59 23:59 Intake Total 1120 730 975 200 Output Total 1250 Balance -130 730 975 200 Meds/Results Medications: Active Medications Generic Name Dose Route Start Last Admin Trade Name Freq PRN Reason Stop Dose Admin Acetaminophen 650 mg 08/13/24 18:32 Acetaminophen 325 Mg Tablet PO Q4H PRN Mild Pain (1-3) or Fever Amlodipine Besylate 5 mg 08/14/24 09:00 08/18/24 09:35 Amlodipine Besylate 5 Mg Tablet PO 5 mg DAILY [facility] Administration Aspirin 81 mg 08/14/24 08:45 08/18/24 09:35 Aspirin 81 Mg Chewable Tablet PO 81 mg DAILY@0800 [facility] Administration Atorvastatin Calcium 40 mg 08/14/24 09:00 08/14/24 09:52 Atorvastatin 40 Mg Tablet PO 40 mg DAILY [facility] Administration Cefdinir 300 mg 08/18/24 21:00 Cefdinir 300 Mg Capsule PO 08/23/24 09:01 Q12HR [facility] Clopidogrel Bisulfate 75 mg 08/19/24 09:00 Clopidogrel Bisulfate 75 Mg Tablet PO QAM [facility] Doxycycline Hyclate 100 mg 08/18/24 21:00 Doxycycline Hyclate 100 Mg Tablet PO 08/25/24 09:01 Q12HR [facility] Enoxaparin Sodium 40 mg 08/14/24 09:00 08/18/24 09:36 Enoxaparin 40 Mg/0.4 Ml Syringe SUB-Q 40 mg DAILY [facility] Administration Metoprolol Tartrate 25 mg 08/14/24 21:00 08/18/24 09:35 Metoprolol Tartrate 25 Mg Tablet PO 25 mg Q12HR [facility] Administration Ondansetron HCl 4 mg 08/13/24 18:32 Ondansetron Inj 4 Mg/2 Ml Vial IV PUSH Q4H PRN Nausea Quetiapine Fumarate 12.5 mg 08/15/24 21:00 08/17/24 20:30 Quetiapine Fumarate 12.5 Mg Tablet PO 12.5 mg HS [facility] Administration Vitamin D 1,000 units 08/18/24 09:00 08/18/24 09:35 Cholecalciferol 1,000 Units Tablet PO 1,000 units DAILY [facility] Administration Radiology Results: ITS Impressions Head CT 08/13/24 16:48 IMPRESSION: No acute intracranial process. Cervical Spine CT 08/13/24 16:58 IMPRESSION: No acute fracture or traumatic malalignment in the cervical spine. Upper Quadrant Ultrasound 08/16/24 09:52 IMPRESSION: 1. Cholelithiasis in normal-appearing gallbladder with no intra or extra hepatic biliary ductal dilation. 2. Diffuse hepatic steatosis. Chest X-Ray 08/18/24 10:57 IMPRESSION: Relatively stable bilateral pulmonary infiltrates and continued short-term radiographic follow-up is recommended to ensure complete clearing are to exclude any possible mass lesion. Labs Labs: Laboratory Results - last 24 hr 08/18/24 04:47 Sodium 138 Potassium 3.3 L Chloride 113 H Carbon Dioxide 21 L Anion Gap 4 BUN 11 Creatinine 0.60 L Estim Creat Clear Calc 52 Estimated GFR > 60 Glucose 92 Calcium 8.0 L
[2024-08-18] MEDS: QUEtiapine FUMARATE 12.5 MG TABLET PO (21:13)
[2024-08-18] MEDS: DOXYCYCLINE HYCLATE 100 MG TABLET PO (21:13)
[2024-08-18] MEDS: CEFDINIR 300 MG CAPSULE PO (21:13)
[2024-08-18] MEDS: guaiFENesin 12 HR 600 MG TABCR PO (21:46)
[2024-08-18 23:51] LABS: MRSA (PCR) NOT DETECTED (NOT DETECTE)
[2024-08-19] VITALS (21 sets, daily range): BP systolic 103–139; BP diastolic 52–72; PULSE 51–74; RESP 12–63; TEMP 36.3–36.7; O2SAT 94–97
[2024-08-19 05:08] LABS: Basophils Percent Auto 0.6 % (0.2-1.2); Eosinophils Absolute Auto 0.1 K/mm3 (0-0.3); Hematocrit 37.8 % (37.0-47.0); Hemoglobin 12.2 g/dL (12.0-15.0); Immature Granulocyte Absolute 0.01 K/mm3 (0.00-0.031); Immature Granulocyte Percent A 0.2 % (0-0.5); Lymphocytes Absolute Auto 2.12 K/mm3 (0.9-3.2); Lymphocytes Percent Auto 43.5 % (18.3-44.2); Mean Corpuscular HGB Conc 32.3 g/dl (32-36); Mean Corpuscular Hemoglobin 28.8 pg (26-34); Mean Corpuscular Volume 89.4 fl (80-100); Mean Platelet Volume 11.2 fl (7.4-10.4); Monocytes Absolute Auto 0.6 K/mm3 (0.1-0.6); Monocytes Percent Auto 11.9 % (2.6-8.5); Neutrophils Absolute Auto 2.1 K/mm3 (1.3-6.7); Neutrophils Percent Auto 42.8 % (45.5-73.1); Platelet Count Result 249 k/mm3 (150-375); Red Blood Count 4.23 M/mm3 (4.2-5.4); Red Cell Distribution Width 13.7 % (11.5-14.5); White Blood Count 4.9 K/mm3 (4.5-10.0)
[2024-08-19 05:19] LABS: Albumin Level 3.2 g/dL (3.5-5.1); Anion Gap 3 mmol/L (4-12); Blood Urea Nitrogen 13 mg/dL (7-17); Calcium 8.2 mg/dL (8.4-10.2); Carbon Dioxide 20 mmol/L (22-30); Chloride 112 mmol/L (98-107); Estimated CRCL calculation 52 ml/min; Estimated Glomerular Filt Rate > 60; Glucose 81 mg/dL (65-110); Magnesium 2.2 mg/dL (1.6-2.3); Phosphorus 2.8 mg/dL (2.5-4.5); Potassium 3.8 mmol/L (3.4-5.0); Sodium 135 mmol/L (137-145)
[2024-08-19 06:03] LABS: CRP 0.8 mg/dL (<1.0)
[2024-08-19] MEDS: METOPROLOL TARTRATE 25 MG TABLET PO ×2 (09:31→22:16)
[2024-08-19] MEDS: ASPIRIN 81 MG CHEWABLE TABLET PO (09:31)
[2024-08-19] MEDS: CEFDINIR 300 MG CAPSULE PO ×2 (09:31→22:16)
[2024-08-19] MEDS: DOXYCYCLINE HYCLATE 100 MG TABLET PO ×2 (09:31→22:16)
[2024-08-19] MEDS: CHOLECALCIFEROL 1,000 UNITS TABLET 1000 UNITS PO (09:31)
[2024-08-19] MEDS: amLODIPine BESYLATE 5 MG TABLET PO (09:32)
[2024-08-19] MEDS: ENOXAPARIN 40 MG/0.4 ML SYRINGE SUB-Q (09:32)
[2024-08-19] MEDS: CLOPIDOGREL BISULFATE 75 MG TABLET PO (09:32)
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
[2024-08-19] MEDS: POTASSIUM CHLORIDE 20 MEQ ER TABLET PO (17:46)
[2024-08-19] MEDS: QUEtiapine FUMARATE 12.5 MG TABLET PO (22:17)
--- NOTE | 2024-08-19 23:48 | PC.NURSE ---
This patient, Radha Guerrero, was transferred to [facility] on 08/19/24 at 2340. Personal belongings sent with patient. Report given to November at 2310. Appropriate documentation sent with patient.
[2024-08-20] VITALS (7 sets, daily range): BP systolic 113–143; BP diastolic 59–70; PULSE 54–62; RESP 12–18; TEMP 36.2–36.7; O2SAT 92–98
[2024-08-20] MEDS: CLOPIDOGREL BISULFATE 75 MG TABLET PO (08:48)
[2024-08-20] MEDS: CEFDINIR 300 MG CAPSULE PO ×2 (08:48→20:58)
[2024-08-20] MEDS: ATORVASTATIN 40 MG TABLET PO (08:48)
[2024-08-20] MEDS: CHOLECALCIFEROL 1,000 UNITS TABLET 1000 UNITS PO (08:48)
[2024-08-20] MEDS: METOPROLOL TARTRATE 25 MG TABLET PO ×2 (08:48→20:58)
[2024-08-20] MEDS: ASPIRIN 81 MG CHEWABLE TABLET PO (08:48)
[2024-08-20] MEDS: amLODIPine BESYLATE 5 MG TABLET PO (08:48)
[2024-08-20] MEDS: DOXYCYCLINE HYCLATE 100 MG TABLET PO ×2 (08:49→20:58)
[2024-08-20] MEDS: ENOXAPARIN 40 MG/0.4 ML SYRINGE SUB-Q (08:49)
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
[2024-08-20] MEDS: QUEtiapine FUMARATE 12.5 MG TABLET PO (20:58)
[2024-08-21 06:00] VITALS: BP 119/58; PULSE 60; RESP 16; TEMP 36.8; O2SAT 96
[2024-08-21 06:26] LABS: Anion Gap 8 mmol/L (4-12); Blood Urea Nitrogen 23 mg/dL (7-17); Calcium 8.5 mg/dL (8.4-10.2); Carbon Dioxide 19 mmol/L (22-30); Chloride 111 mmol/L (98-107); Estimated CRCL calculation 51 ml/min; Estimated Glomerular Filt Rate > 60; Glucose 75 mg/dL (65-110); Potassium 3.7 mmol/L (3.4-5.0); Sodium 138 mmol/L (137-145)
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
[2024-08-21 08:00] VITALS: BP 137/62; PULSE 52; RESP 12; TEMP 36.3; O2SAT 95
[2024-08-21 08:24] VITALS: BP 150/67; PULSE 66; RESP 12; O2SAT 97
[2024-08-21 08:25] VITALS: BP 144/73; PULSE 64; RESP 14; O2SAT 97
[2024-08-21 09:41] VITALS: PULSE 64
[2024-08-21] MEDS: ENOXAPARIN 40 MG/0.4 ML SYRINGE SUB-Q (09:41)
[2024-08-21] MEDS: CLOPIDOGREL BISULFATE 75 MG TABLET PO (09:41)
[2024-08-21] MEDS: CEFDINIR 300 MG CAPSULE PO (09:41)
[2024-08-21] MEDS: amLODIPine BESYLATE 5 MG TABLET PO (09:41)
[2024-08-21] MEDS: METOPROLOL TARTRATE 25 MG TABLET PO (09:41)
[2024-08-21] MEDS: ASPIRIN 81 MG CHEWABLE TABLET PO (09:41)
[2024-08-21] MEDS: ATORVASTATIN 40 MG TABLET PO (09:41)
[2024-08-21] MEDS: DOXYCYCLINE HYCLATE 100 MG TABLET PO (09:41)
[2024-08-21] MEDS: CHOLECALCIFEROL 1,000 UNITS TABLET 1000 UNITS PO (09:41)
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
--- NOTE | 2024-08-21 10:50 | PCPTNOTE ---
Patient refused treatment this session. Patient reported she wanted to talk with her first and she didn't understand why she was needing therapy. Educated patient on why she was getting therapy and the benefits of PT. Patient continued to refuse to ambulate and stated she wanted to talk with her first. RN aware.
[2024-08-23 16:53] LABS: Methylmalonic Acid. 115 nmol/L (85-423)
== END 2024-08-21 14:15 | DRG 194 ==
LOC: ANHED 17:54 → ANHIMU 19:02 → ANH2MED 08-19 23:42
PROVIDERS: Internal Medicine; Internal Medicine Interventional Cardiology; Nurse Practitioner; Physician Assistant; Admitting Provider Internal Medicine; Emergency Provider Student in an Organized Health Care Education/Training Program; PCP Family Medicine Adolescent Medicine; Visit Provider Hospitalist
DX: J10.1 Influenza due to other identified influenza virus with other respiratory manifestations (principal); N39.0 Urinary tract infection, site not specified; I10 Essential (primary) hypertension; E87.6 Hypokalemia; E78.5 Hyperlipidemia, unspecified; B96.1 Klebsiella pneumoniae [K. pneumoniae] as the cause of diseases classified elsewhere; R41.3 Other amnesia; R29.6 Repeated falls; Z20.822 Contact with and (suspected) exposure to COVID-19; S01.81XD Laceration without foreign body of other part of head, subsequent encounter; R79.89 Other specified abnormal findings of blood chemistry; Z23 Encounter for immunization; Z87.891 Personal history of nicotine dependence
CPT/HCPCS: 36415; 70450; 71045; 71046; 72125; 76705; 80048; 80053; 80069; 80074; 81001; 82306; 82533; 82550; 82607; 82746; 83735; 83921; 84132; 84443; 84484; 85025; 85610; 85730; 86140; 87086; 87186; 87637; 87641; 90471; 90715; 93005; 96361; 96365; 96366; 96372; 96374; 96375; 97110; 97161; 97165; 97530; 97535; 99285; A9270; C8929; G0378; J0696; J0780; J1200; J1650; J1885; J3480; J7030; J7040; Q9957

== ENCOUNTER 2024-08-29 22:29 | Emergency (ER) | payer OTHER, SELFPAY ==
--- NOTE | ~2024-08-29 | XR_ITS ---
EXAMINATION: XR pelvis 1-2V DATE: 08/30/2024 00:36 INDICATION: Fall. TECHNIQUE: An anteroposterior view of the pelvis was obtained. COMPARISON: Pelvis radiograph 03/26/2018 FINDINGS: There is lumbar levocurvature and severe spondylosis. No fracture. There is mild osteoarthr itis of the hips. IMPRESSION: 1. Mild osteoarthritis of the hips. Reviewed, dictated and finalized at location A. ETING/SALES PERSON
--- NOTE | ~2024-08-29 | CT_ITS ---
EXAMINATION: CT facial & cervical spine wo DATE: 08/30/2024 00:44 INDICATION: Head injury. TECHNIQUE: Computed tomography (CT) of the maxillofacial region and cervical spine was performed with out intravenous contrast. Automated exposure control and iterative reconstruction technique were empl oyed. The dose-length product was 266.84 mGy-cm. COMPARISON: CT cervical spine 08/13/2024 FINDINGS: MAXILLOFACIAL CT: There are likely changes of ocular lens replacement surgeries. There is mucosal thickening in the par anasal sinuses. There is leftward deviation of anterior nasal septum and rightward deviation of poste rior nasal septum. No fracture. The mastoid air cells are normal. CERVICAL SPINE CT: There is mild scarring at the lung apices. There are airspace opacities in right upper lobe, consiste nt with pneumonia. There is 6 degrees dextrocurvature of cervical spine. Vertebral body heights are n ormal. There is moderately decreased disc height at C4-C5 and severely decreased disc height at C5-C6 and C6-C7. The following disc levels are specifically discussed: C2-C3: There is no uncovertebral joint osteoarthritis. There is severe bilateral facet joint osteoart hritis. There is mild left neural foraminal stenosis. There is no central canal stenosis. C3-C4: There is moderate bilateral uncovertebral joint osteoarthritis. There is severe bilateral face t joint osteoarthritis. There is mild bilateral neural foraminal stenosis. There is mild central janay l stenosis. C4-C5: There is severe bilateral uncovertebral joint osteoarthritis. There is mild right and severe l eft facet joint osteoarthritis. There is moderate bilateral neural foraminal stenosis. There is mild central canal stenosis. C5-C6: There is severe bilateral uncovertebral joint osteoarthritis. There is severe bilateral facet joint osteoarthritis. There is moderate bilateral neural foraminal stenosis. There is mild central ca nal stenosis. C6-C7: There is severe bilateral uncovertebral joint osteoarthritis. There is moderate bilateral face t joint osteoarthritis. There is mild bilateral neural foraminal stenosis. There is mild central janay l stenosis. C7-T1: There is no uncovertebral joint osteoarthritis. There is severe bilateral facet joint osteoart hritis. There is mild bilateral neural foraminal stenosis. There is no central canal stenosis. IMPRESSION: 1. No fracture. 2. Severe cervical spondylosis. Reviewed, dictated and finalized at location A. EL RN OR
--- NOTE | ~2024-08-29 | CT_ITS ---
EXAMINATION: CT brain wo con DATE: 08/30/2024 00:43 INDICATION: Fall. TECHNIQUE: Computed tomography (CT) of the head was performed without intravenous contrast. The mA wa s adjusted according to patient size. Iterative reconstruction technique was employed. The dose-lengt h product was 681.00 mGy-cm. COMPARISON: Head CT 08/13/2024 FINDINGS: There are scattered areas of low attenuation in the cerebral white matter. There is no intr acranial hemorrhage, acute infarction, or abnormal intracranial mass lesion. The ventricles are kam l in size. There are likely changes of ocular lens replacement surgeries. There is mucosal thickening in the paranasal sinuses. The mastoid air cells are normal. IMPRESSION: 1. Stable extensive nonspecific cerebral white matter disease, which likely represents chronic small vessel ischemic disease. Reviewed, dictated and finalized at location A. E LEADER IMPRESSION: 1. Stable extensive nonspecific cerebral white matter disease, which likely rep resents chronic small vessel ischemic disease.
--- NOTE | ~2024-08-29 | XR_ITS ---
EXAMINATION: XR chest 1V portable DATE: 08/30/2024 00:46 INDICATION: Fall. TECHNIQUE: A single frontal view of the chest was obtained. COMPARISON: Chest 2 views 08/18/2024, 03/21/2018 FINDINGS: There are airspace opacities at the junction of right mid and upper lung zones. There are a irspace opacities in left mid and lower lung zones. No pleural effusion or pneumothorax. The heart si ze is normal. IMPRESSION: 1. Worsened bilateral airspace opacities, consistent with pneumonia. Reviewed, dictated and finalized at location A. DMARKER
[2024-08-29 22:28] VITALS: BP 114/82; PULSE 106; RESP 18; TEMP 36.9; O2SAT 90
[2024-08-29 22:45] VITALS: BP 123/85; PULSE 106; RESP 15; O2SAT 91
[2024-08-30 00:15] VITALS: BP 107/81; PULSE 104; RESP 12; O2SAT 91
--- NOTE | 2024-08-30 00:21 | ECG_ITS ---
Test Date: 2024-08-30 00:31:21 Measurements Intervals [place] Rate: 99 P: 24 [place]: 150 QRS: -26 QRSD: 95 T: -18 QT: 335 QTc: 430 Interpretive Statements SINUS RHYTHM INCOMPLETE RIGHT BUNDLE BRANCH BLOCK [90+ ms QRS DURATION, TERMINAL R IN V1/V2, 40+ ms S IN I/aVL/V4/V5/V6] MINIMAL VOLTAGE CRITERIA FOR LVH, CONSIDER NORMAL VARIANT [MEETS CRITERIA IN ONE OF: R(aVL), S(V1), R(V5), R(V5/V6)+S(V1)] POSSIBLE ANTERIOR MYOCARDIAL INFARCTION , OF INDETERMINATE AGE [30 ms Q WAVE IN V3/V4, OR R < 0.2 mV IN V4] INFERIOR INFARCT, OLD Compared to ECG 08/16/2024 10:10:50 Incomplete right bundle-branch block now present Myocardial infarct finding still present Electronically Signed On 08-30-2024 14:40:32 TRACTOR OPERATOR [employer]ELING by Pedro Garland M.D.
[2024-08-30 00:36] LABS: Basophils Percent Auto 0.3 % (0.2-1.2); Hematocrit 46.7 % (37.0-47.0); Hemoglobin 15.3 g/dL (12.0-15.0); Immature Granulocyte Absolute 0.07 K/mm3 (0.00-0.031); Immature Granulocyte Percent A 0.5 % (0-0.5); Lymphocytes Absolute Auto 1.35 K/mm3 (0.9-3.2); Lymphocytes Percent Auto 9.7 % (18.3-44.2); Mean Corpuscular HGB Conc 32.8 g/dl (32-36); Mean Corpuscular Hemoglobin 29.2 pg (26-34); Mean Corpuscular Volume 89.1 fl (80-100); Mean Platelet Volume 12.6 fl (7.4-10.4); Monocytes Absolute Auto 1.1 K/mm3 (0.1-0.6); Monocytes Percent Auto 7.9 % (2.6-8.5); Neutrophils Absolute Auto 11.3 K/mm3 (1.3-6.7); Neutrophils Percent Auto 81.6 % (45.5-73.1); Platelet Count Result 289 k/mm3 (150-375); Red Blood Count 5.24 M/mm3 (4.2-5.4); Red Cell Distribution Width 13.8 % (11.5-14.5); White Blood Count 13.9 K/mm3 (4.5-10.0)
[2024-08-30 00:46] LABS: Alanine Aminotransferase 42 U/L (6-35); Albumin Level 4.2 g/dL (3.5-5.1); Alkaline Phosphatase 178 U/L (38-126); Anion Gap 18 mmol/L (4-12); Aspartate Amino Transferase 62 U/L (14-36); Bilirubin,Total 1.4 mg/dL (0.2-1.3); Blood Urea Nitrogen 28 mg/dL (7-17); Calcium 9.1 mg/dL (8.4-10.2); Carbon Dioxide 19 mmol/L (22-30); Chloride 103 mmol/L (98-107); Estimated CRCL calculation 32 ml/min; Estimated Glomerular Filt Rate 55; Glucose 132 mg/dL (65-110); Potassium 3.4 mmol/L (3.4-5.0); Sodium 140 mmol/L (137-145)
[2024-08-30] MEDS: SODIUM CHLORIDE 0.9% IV 1,000 ML 999 ML IV CONT ×2 (00:57)
[2024-08-30 01:11] LABS: Influenza A QL RT-PCR Negative (Negative); Influenza B QL RT-PCR Negative (Negative); RSV RNA, RT-PCR Negative (Negative); SARS-CoV-2 RNA PCR Negative (Negative)
[2024-08-30 03:09] VITALS: BP 104/66; PULSE 88; RESP 12; O2SAT 93
[2024-08-30 03:16] LABS: Add Urine Microscopic? YES; Appearance Urine Clear (Clear); Bacteria Urine None Seen /hpf; Bilirubin Urine Negative (Negative); Blood Urine Negative (Negative); Color Urine Yellow (Yellow); Glucose Urine UA Negative (Negative); Hyaline Casts Urine Present /lpf; Ketones Urine 3+ mg/dL (Negative); Leukocyte Esterase Ur Negative LEU/UL (Negative); Need Manual Microscopic Reviewed; Nitrate Urine Negative (Negative); Protein Urine Trace mg/dL (Negative); RBC Urine 0-2 /hpf (0-2); Specific Grav Ur 1.021 (1.001-1.035); Squamous Epithelial Cell Urine None Seen /hpf (Few); Urobilinogen Urine 0.2 mg/dL (<2.0); WBC Urine 0-5 /hpf (0-3)
--- NOTE | 2024-08-30 03:24 | ED_ITS ---
HPI - General Adult General Chief complaint: Fall Stated complaint: FALL; R HIP PAIN, EPISTAXIS, CHIN LAC Time Seen by Provider: 08/29/24 23:34 History of Present Illness HPI narrative: This is an 79-year-old female presenting ED after a ground level fall. Patient tripped over a cart at the dementia care unit. The patient herself can provide no useful information to guide interview. She has no complaints at this time. She does not know why she is in the ED. Related Data Allergies Allergy/AdvReac Type Severity Reaction Status Date / Time BOBO Inhibitors AdvReac Intermediate Cough Verified 08/14/24 04:26 [facility] Past Medical History Medical History (Updated 08/30/24 @ 03:38 by Eric Gregorio MD) Short-term memory loss Hyperlipidemia Hypertension Surgical History Surgical History History of total abdominal hysterectomy (2013) History of tonsillectomy Family History Family History Father Throat cancer Mother Heart failure Cerebrovascular accident Breast cancer Acute myocardial infarction, Onset Age: 63 Social History Social History Social History: Surrogate medical decision maker: Lloyd Guerrero, spouse. Code status: Full code. Smoking status: Former smoker Tobacco type: cigarettes Smoking end date: 08/14/74 Do You Feel Safe in your Home?: Yes Lack of Transportation: No Lack of Food: Never True Current Housing: I Have Housing Concerned About Future Housing: No Difficulty Paying Gas/Electric Bills: No Difficulty Paying for Meds: No Currently Unemployed: No Education: Decline to Answer Difficulty w/ Childcare or Family Care: No Living arrangements: with family Additional living arrangements comments: and dog Spiritual care concerns: No Exam 2 Narrative: APPEARANCE: No apparent distress. Head: Bruising over the nose, 1 cm jagged laceration over the patient's chin requiring suture repair EYES: EOMI, NOSE: Atraumatic NECK: Trachea midline RESPIRATORY: No increased rate of breathing CTAB CARDIOVASCULAR: RRR, no peripheral edema ABDOMINAL: Non-distended MUSCULOSKELETAl: Head to toe trauma exam revealed no deformities or pain on palpation/ranging of the the extremities NEURO: Alert. Moving 4/4 extremities SKIN:: Warm, dry. Normal color PSYCHIATRIC: Normal affect Course Vital Signs Vital signs: Vital Signs Temperature 98.4 F 08/29/24 22:28 Pulse Rate 106 H 08/29/24 22:28 Respiratory Rate 18 08/29/24 22:28 Blood Pressure 114/82 08/29/24 22:28 Pulse Oximetry 90 08/29/24 22:28 Oxygen Delivery Room Air 08/29/24 22:28 Temperature 98.4 F 08/29/24 22:28 Pulse Rate 88 08/30/24 03:09 Respiratory Rate 12 08/30/24 03:09 Blood Pressure 104/66 08/30/24 03:09 Pulse Oximetry 93 08/30/24 03:09 Oxygen Delivery Room Air 08/29/24 22:28 Procedures Laceration Laceration 1: Date: 08/30/24 Site: face Size (cm): 1.5 Description: irregular Depth: simple, single layer Local Anesthetic: lidocaine 1% and with epi Amount of anesthesia used (mL): 3 Pre-repair: wound explored and irrigated extensively ====== Skin Level ====== Skin layer closed with: prolene Size (cm): 5-0 Number of sutures: 2 ====== Subcutaneous Layer ====== ====== Muscle Layer ====== ====== Tendon Layer ====== Medical Decision Making MDM Narrative Medical decision making narrative: -Course: A 79-year-old female dementia presenting after ground level fall. CT imaging negative for intracranial hemorrhage or bony injury. Laceration or chin was repaired. Metabolic workup revealed a white count 13.9 but no other source of infection or concerning laboratory abnormalities. Chest x-ray showed stable infiltrates that were visible on x-rays since 08/13/24. Patient has no respiratory symptoms at this time. Patient will be discharged back to the [facility]. She should return to the ED if she develops any new or worsening symptoms. -DDX includes but is not limited to: Caution, ICH, bony injury soft tissue injury UTI dehydration viral illness sepsis -Co-morbidities complicating care: Dementia -Social determinants of health: group home resident -Independent interpretation of studies: Labs and imaging reviewed -Shared decision making / Disposition: Discharge Vital Signs Vital Signs: Vital Signs Temperature 98.4 F 08/29/24 22:28 Pulse Rate 106 H 08/29/24 22:28 Respiratory Rate 18 08/29/24 22:28 Blood Pressure 114/82 08/29/24 22:28 Pulse Oximetry 90 08/29/24 22:28 Oxygen Delivery Room Air 08/29/24 22:28 Temperature 98.4 F 08/29/24 22:28 Pulse Rate 88 08/30/24 03:09 Respiratory Rate 12 08/30/24 03:09 Blood Pressure 104/66 08/30/24 03:09 Pulse Oximetry 93 08/30/24 03:09 Oxygen Delivery Room Air 08/29/24 22:28 Lab Data 08/30/24 00:26 08/30/24 00:26 Labs: Lab Results 08/30/24 08/30/24 Range/Units 00:26 01:30 WBC 13.9 H (4.5-10.0) K/mm3 RBC 5.24 (4.2-5.4) M/mm3 Hgb 15.3 H D (12.0-15.0) g/dL Hct 46.7 (37.0-47.0) % MCV 89.1 (80-100) fl MCH 29.2 (26-34) pg MCHC 32.8 (32-36) g/dl RDW 13.8 (11.5-14.5) % Plt Count 289 (150-375) k/mm3 MPV 12.6 H (7.4-10.4) fl Immature Gran % (Auto) 0.5 (0-0.5) % Neut % (Auto) 81.6 H (45.5-73.1) % Lymph % (Auto) 9.7 L (18.3-44.2) % [place] % (Auto) 7.9 (2.6-8.5) % Eos % (Auto) 0.0 (0-4.4) % Baso % (Auto) 0.3 (0.2-1.2) % Lymph # (Auto) 1.35 (0.9-3.2) K/mm3 [place] # (Auto) 1.1 H (0.1-0.6) K/mm3 Eos # (Auto) 0.0 (0-0.3) K/mm3 Baso # (Auto) 0.0 (0.0-0.1) K/mm3 Abs Immat Gran (auto) 0.07 H (0.00-0.031) K/mm3 Absolute Neuts (auto) 11.3 H (1.3-6.7) K/mm3 Absolute Nucleated RBC 0.000 (0.0-0.012) K/mm3 Nucleated RBC % 0.0 (0.0-0.2) % Sodium 140 (137-145) mmol/L Potassium 3.4 (3.4-5.0) mmol/L Chloride 103 (98-107) mmol/L Carbon Dioxide 19 L (22-30) mmol/L Anion Gap 18 H (4-12) mmol/L BUN 28 H (7-17) mg/dL Creatinine 0.97 (0.7-1.0) mg/dL Estim Creat Clear Calc 32 ml/min Estimated GFR 55 L (59 - ) Glucose 132 H (65-110) mg/dL Calcium 9.1 (8.4-10.2) mg/dL Total Bilirubin 1.4 H (0.2-1.3) mg/dL AST 62 H (14-36) U/L ALT 42 H (6-35) U/L Alkaline Phosphatase 178 H (38-126) U/L Total Protein 8.0 (6.3-8.2) g/dL Albumin 4.2 (3.5-5.1) g/dL Urine Color Yellow (Yellow) Urine Appearance Clear (Clear) Urine pH 6.0 (5.0-9.0) Ur Specific Lena 1.021 (1.001-1.035) Urine Protein Trace (Negative) mg/dL Urine Glucose (UA) Negative (Negative) mg/dL Urine Ketones 3+ H (Negative) mg/dL Ur Blood (Man) Negative (Negative) Urine Nitrate Negative (Negative) Urine Bilirubin Negative (Negative) Urine Urobilinogen 0.2 (<2.0) mg/dL Add Ur Microanalysis Reviewed Leukocyte Esterase Rfl Negative (Negative) REID/UL Urine RBC 0-2 (0-2) /hpf Urine WBC 0-5 (0-3) /hpf Ur Squamous Epith Cells None seen (Few) /hpf Urine Bacteria None seen /hpf Urine Casts 6-10 Hyaline Casts Present (None) /lpf Influenza A (RT-PCR) Negative (Negative) Influenza B (RT-PCR) Negative (Negative) RSV (RT-PCR) Negative (Negative) SARS-CoV-2 RNA (RT-PCR) Negative (Negative) Discharge Plan Discharge Clinical Impression: Fall Patient Disposition: Home, Self-Care Condition: Stable Instructions: Antibiotic Form, Laceration (ED) Additional Instructions: Radha was seen in the ED after a fall. The lacerations on her chin were sutured and the sutures should be removed in 5 days. She should return to the ED ED if she develops fevers shortness of breath or any new or worsening symptoms. Patient Language: Urdu Prescriptions: No Action amlodipine 5 mg tablet 5 mg PO DAILY Qty: 90 3RF clopidogrel 75 mg Tablet 75 mg PO QAM Qty: 30 0RF cefdinir 300 mg Capsule 300 mg PO Q12HR Qty: 5 0RF doxycycline hyclate 100 mg Tablet 100 mg PO Q12HR Qty: 5 0RF metoprolol tartrate 25 mg Tablet 25 mg PO Q12HR Qty: 60 0RF quetiapine [Seroquel] 25 mg tablet 25 mg PO HS Qty: 30 0RF aspirin [Children's Aspirin] 81 mg Tablet,Chewable 81 mg PO DAILY@0800 Qty: 30 0RF cholecalciferol (vitamin D3) [Vitamin D3] 25 mcg (1,000 unit) Tablet 25 mcg PO DAILY Qty: 30 0RF atorvastatin 40 mg tablet 40 mg PO DAILY Qty: 90 3RF Follow-up/Referrals: Tj Mcgraw MD [Primary Care Provider] -
[2024-08-30 05:51] VITALS: BP 124/84; PULSE 81; RESP 13; O2SAT 94
[2024-08-30 08:57] VITALS: BP 145/86; PULSE 74; RESP 14; O2SAT 98
== END 2024-08-30 08:58 ==
PROVIDERS: Emergency Provider Emergency Medicine; PCP Family Medicine Adolescent Medicine
DX: S01.81XA Laceration without foreign body of other part of head, initial encounter (principal); Z20.822 Contact with and (suspected) exposure to COVID-19; F03.90 Unspecified dementia, unspecified severity, without behavioral disturbance, psychotic disturbance, mood disturbance, and anxiety; I10 Essential (primary) hypertension; E78.5 Hyperlipidemia, unspecified; Z87.891 Personal history of nicotine dependence; Z90.710 Acquired absence of both cervix and uterus; Z79.82 Long term (current) use of aspirin; Z79.02 Long term (current) use of antithrombotics/antiplatelets; Z79.899 Other long term (current) drug therapy; M47.812 Spondylosis without myelopathy or radiculopathy, cervical region; R90.82 White matter disease, unspecified; M16.0 Bilateral primary osteoarthritis of hip; R91.8 Other nonspecific abnormal finding of lung field; W18.09XA Striking against other object with subsequent fall, initial encounter
CPT/HCPCS: 12011; 36415; 70450; 70486; 71045; 72125; 72170; 80053; 81001; 85025; 87040; 87637; 93005; 96360; 99284; J2003; J7030

== ENCOUNTER 2024-10-03 14:13 | Inpatient (IN) | payer OTHER, SELFPAY ==
[2024-10-03] VITALS (34 sets, daily range): BP systolic 94–133; BP diastolic 57–95; PULSE 67–80; RESP 15–20; TEMP 34.9–36.8; O2SAT 93–100; BMI 21.3
--- NOTE | ~2024-10-03 | XR_ITS ---
EXAMINATION: XR chest 1V DATE: 10/03/2024 15:58 INDICATION: Altered mental status. TECHNIQUE: A single frontal view of the chest was obtained. COMPARISON: Chest single view 08/30/2024, 08/13/24 FINDINGS: There are airspace opacities in right upper lung zone and left midlung zone. No pleural eff usion or pneumothorax. The heart size is normal. IMPRESSION: 1. Persistent airspace opacities in right upper lung zone and left midlung zone, consistent with pneu monia versus metastatic disease. Chest CT is recommended. Reviewed, dictated and finalized at location A. WIRE ALINER IMPRESSION: 1. Persistent airspace opacities in right upper lung zone and left midlung zone , consistent with pneumonia versus metastatic disease. Chest CT is recommended.
--- NOTE | ~2024-10-03 | CT_ITS ---
Clinical Indication: Sepsis, transaminitis CT Scan of the Chest, Abdomen, and Pelvis without Contrast: Technique: Contiguous sections were acquired throughout the chest, abdomen, and pelvis without IV con trast administration. Dose reduction technique was used on this scan by utilizing automated exposure control and iterative reconstruction technique. The dose-length product (DLP) was 506.96 mGy-cm. Findings: There is no evidence of any significant mediastinal, hilar or axillary lymphadenopathy. Coronary ankush ry calcifications are present. No aortic aneurysm. There is no evidence of pleural or pericardial effusion. There is irregular, consolidation right upper lobe measuring up to approximately 2.8 cm in diameter ( axial images 30-35). There is additional extensive consolidation at the lingula/posterolateral left u pper lobe. There is patchy consolidation involving the superior segments of the left lower lobe. The liver, spleen, pancreas, gallbladder, adrenals and kidneys are within normal limits. There are at herosclerotic calcifications of the aorta. No lymphadenopathy. No bowel obstruction or bowel wall thickening. There is sigmoid diverticulosis. Urinary bladder is distended, with Thakur catheter in place. No ascites. No pelvic mass. Impression: Multifocal pulmonary consolidation, as above, most compatible with multifocal pneumonia. Follow-up to radiographic resolution is advised. Reviewed, dictated and finalized at [facility]. SOFTWARE ARCHITECT Impression: Multifocal pulmonary consolidation, as above, most compatible with multifocal p neumonia. Follow-up to radiographic resolution is advised.
--- NOTE | ~2024-10-03 | CT_ITS ---
EXAMINATION: CT cervical spine wo con DATE: 10/03/2024 15:58 INDICATION: Neck injury. Fall. TECHNIQUE: Computed tomography (CT) of the cervical spine was performed without intravenous contrast. Automated exposure control and iterative reconstruction technique were employed. The dose-length pro duct was 171.39 mGy-cm. COMPARISON: CT cervical spine 08/30/24 FINDINGS: There is mild scarring at the lung apices. There is 6 degrees dextrocurvature of cervical s pine. Vertebral body heights are normal. There is moderately decreased disc height at C4-C5 and sever alejandra decreased disc height at C5-C6 and C6-C7. The following disc levels are specifically discussed: C2-C3: There is no uncovertebral joint osteoarthritis. There is severe bilateral facet joint osteoart hritis. There is mild left neural foraminal stenosis. There is no central canal stenosis. C3-C4: There is moderate bilateral uncovertebral joint osteoarthritis. There is severe bilateral face t joint osteoarthritis. There is mild bilateral neural foraminal stenosis. There is mild central janay l stenosis. C4-C5: There is severe bilateral uncovertebral joint osteoarthritis. There is mild right and severe l eft facet joint osteoarthritis. There is moderate bilateral neural foraminal stenosis. There is mild central canal stenosis. C5-C6: There is severe bilateral uncovertebral joint osteoarthritis. There is severe bilateral facet joint osteoarthritis. There is moderate bilateral neural foraminal stenosis. There is mild central ca nal stenosis. C6-C7: There is severe bilateral uncovertebral joint osteoarthritis. There is moderate bilateral face t joint osteoarthritis. There is mild bilateral neural foraminal stenosis. There is mild central janay l stenosis. C7-T1: There is no uncovertebral joint osteoarthritis. There is severe bilateral facet joint osteoart hritis. There is mild bilateral neural foraminal stenosis. There is no central canal stenosis. IMPRESSION: 1. No fracture. 2. Severe cervical spondylosis. Reviewed, dictated and finalized at location A. ICE MACHINE OPERATOR
--- NOTE | ~2024-10-03 | CT_ITS ---
EXAMINATION: CT brain wo con DATE: 10/03/2024 15:58 INDICATION: Altered mental status. Fall. TECHNIQUE: Computed tomography (CT) of the head was performed without intravenous contrast. The mA wa s adjusted according to patient size. Iterative reconstruction technique was employed. The dose-lengt h product was 605.33 mGy-cm. COMPARISON: Head CT 08/30/2024 FINDINGS: There are scattered areas of low attenuation in the cerebral white matter. There is no int racranial hemorrhage, acute infarction, or abnormal intracranial mass lesion. The ventricles are norm al in size. There are likely changes of ocular lens replacement surgeries. There is mild mucosal thic kening in the paranasal sinuses. The mastoid air cells are normal. IMPRESSION: 1. Stable extensive nonspecific cerebral white matter disease, which likely represents chronic small vessel ischemic disease. Reviewed, dictated and finalized at location A. WARE CONTROLS ENGINEER IMPRESSION: 1. Stable extensive nonspecific cerebral white matter disease, which likely rep resents chronic small vessel ischemic disease.
--- NOTE | 2024-10-03 14:18 | ECG_ITS ---
Test Date: 2024-10-03 14:46:40 Measurements Intervals [place] Rate: 67 P: 73 MA: 126 QRS: -25 QRSD: 97 T: 213 QT: 443 QTc: 470 Interpretive Statements SINUS RHYTHM INCOMPLETE RIGHT BUNDLE BRANCH BLOCK DELAYED PRECORDIAL R/S TRANSITION INFERIOR INFARCT, AGE INDETERMINATE ST-T WAVE ABNORMALITY IN ANTEROLAT/HIGH LAT LEADS- CONSIDER ISCHEMIA BASELINE ARTIFACT- I, II, III, AVR, AVL, AVF, V1-V6 ABNORMAL ECG Compared to ECG 08/30/2024 00:31:21 Possible ischemia now present Electronically Signed On 10-03-2024 16:56:54 WAREHOUSE PULLER by Titi Starkey D.O.
--- OUTSIDE RECORDS SUMMARY | 2024-10-03 14:23 | XMS_ITS | Continuity of Care Document ---
Author Organization [facility] Address [address] [place] [address] Phone Care Team Providers Care Vp Cardiovascular Name Role Phone [facility] Unavailable Unavail able Zohreh Thurman Unavailable Unavailable Procedures Procedure Date Vision Svcs Frames Purchases Progressive Lens, Plastic Tint Plastic, Non-Wanda Tax - Medical Eye Exam & Treatment No Script Corneal Pachymetry Fundus Photography W/ Report Progressive Lens, Polycarb Frames Deluxe Tax - Medical Eye Exam & Treatment No Script Refraction Visual Field Examination-Professional De Visual Field Examination-Technical Optic Nerve Topography Optic Nerve Topography Eye Exam & Treatment Refraction Office/outpatient Visit, Est Advance Directives Directive Yes / No Effective Date File Name No Information Encounters Encounter Description Practice Location Reason(s) For Visit Diagnoses Date Provider Providers Copied on Encounter [facility], [address], [place], [place], [id number], [place] tel:[phone] [facility] No Information 1 4 [facility] . [address] [facility], [address], [place], [place], [id number], [place]. tel:[phone] Referring Provider: Alton Hathaway OD A, [address], [place], [address]. tel:[phone] g Provider: Zohreh Thurman, [address] [place], [address]. tel:[phone] [facility], [address], [place], [place], [id number], [place] tel:[phone] [facility] No Information Sep-1 8-200 9 Hathaway OD Alton. [address] , [address], [place], [address], [place]. tel:[phone] Referring Provider: Alton Sharma, [address], [place], [address]. tel:[phone] [facility], [address], [place], [place], [id number], [place] tel:[phone] [facility] No Information Mar-3 1-200 9 [facility] . [address] [facility], [address], [place], [place], [id number], [place]. tel:[phone] Referring Provider: Alton Sharma, [facility], [place], [address]. tel:[phone] g Provider: Dianne Maurer, [address] [place], [address]. tel:[phone] [facility], [address], [place], [place], [id number], [place] tel:[phone] [facility] No Information Feb-1 9-200 9 Hathaway OD [place]. [address] , [address], [place], [address], [place]. tel:[phone] [facility], [address], [place], [place], [id number], [place] tel:[phone] [facility] No Information Dec-3 0-200 8 Hathaway OD [place]. [address] , [address], [place], [address], [place]. tel:[phone] Referring Provider: Alton Hathaway OD A, [address], [place], [place], [facility]. tel:[phone] [facility], [id number] [place] [address] [address], [place], [place], [id number], [place] tel:[phone] [facility] No Information Jul-2 2-200 8 Hathaway OD [place]. [address], [place], [place], [facility], [place]. tel:[phone] Referring Provider: Alton Hathaway OD A, [facility] [address], [place], [place], [facility]. tel:[phone] [facility], [address] [place] [address] [address], [place], [place], [id number], [place] tel:[phone] [facility] No Information Feb-0 1-200 8 Hathaway OD [place]. [address] [place], [place] [address]ate [address], [address], [place], [place], [facility], [place]. tel:[phone] Referring Provider: Alton Hathaway OD A, [facility] [address], [place], [address]. tel:[phone] [facility], [address] [place] [address] [address], [place], [place], [id number], [place] tel:[phone] [facility] No Information 9-200 8 Hathaway OD [place]. [address] [place], [place] [address], [address], [place], [address], [place]. tel:[phone] Office/outpat ient Visit, [facility], [address], [place], [place], [id number], [place] tel:[phone] [facility] No Information 0-200 7 Hathaway OD [place]. [facility] , [address], [place], [address], [place]. tel:[phone] Family History Family Member Type Diagnosis Age At Onset No Information Payers Payer name Insurance type Covered constitution party ID Authoriza tion(s) No Information Social History Type Description Quantity Date Captured Comments Sex Female Smoking Status No Information Chief Complaint And Reason For Visit No Information Reason For Referral Reason For Referral No Information History Of Present Illness Encounter Date Complaint History Of Prese nt Illness No Information Functional Status Date Functional Assessmen t No Information Instructions Date Instruction Additional Infor mation No Information Assessments Type Assessment Date No Information Patient Care Teams Name Effective Dates (start - stop) Status Members No Information
--- OUTSIDE RECORDS SUMMARY | 2024-10-03 14:23 | XMS_ITS | Clinical Summary ---
Author Organization [facility] [address] [facility] Address [address] [place] [address] Care Team Providers Care Technical Assistance Consultant Name Role Phone Tj Mcgraw MD Primary Care Provider [phone] Medications gabapentin (NEURONTIN) 300 mg capsule Take 1 Capsule (300 mg) by mouth 3 times daily. 60 Capsule 06/25/2019 Active atorvastatin (LIPITOR) 20 mg tablet 04/10/2019 Active lisinopril (PRINIVIL) 40 mg tablet 06/15/2019 Active Active Problems Problem Noted Date Diagnosed Date Cervical spondylosis with radiculopathy 06/25/20 19 Family History Medical History Relation Name Comments Other Brother suicide Cancer Father Cancer Mother Dementia Mother Relation Name Status Comments Brother Father Mother Sister Social History Tobacco Use Types Packs/Day Years Used Date Smoking Tobacco: Former Cigarettes Q uit: 1974 Alcohol Use Standard Drinks/Week Comments Never 0 (1 standard drink = 0.6 oz pur e alcohol) Comments Unknown Sex and Gender Information Value Date Recorded Sex Assigned at Not on file Legal Sex Female 9:46 AM CDT Gender Identity Not on file Sexual Orientation Not on file Occupation Industry Job Start Date Job End Date Not on file Not on file Not on file Not on file Last Filed Vital Signs Vital Sign Reading Time Taken Comments Blood Pressure - - Pulse - - Temperature - - Respiratory Rate - - Oxygen Saturation - - Inhaled Oxygen Concentration - - Weight - - Height 160 cm (5' 3 ) 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
[2024-10-03 14:37] LABS: Basophils Percent Auto 0.1 % (0.2-1.2); Hematocrit 56.8 % (37.0-47.0); Hemoglobin 17.6 g/dL (12.0-15.0); Immature Granulocyte Absolute 0.12 K/mm3 (0.00-0.031); Immature Granulocyte Percent A 0.9 % (0-0.5); Lymphocytes Absolute Auto 0.54 K/mm3 (0.9-3.2); Mean Corpuscular Hemoglobin 28.5 pg (26-34); Mean Corpuscular Volume 91.9 fl (80-100); Mean Platelet Volume 13.9 fl (7.4-10.4); Monocytes Absolute Auto 0.4 K/mm3 (0.1-0.6); Monocytes Percent Auto 2.9 % (2.6-8.5); Neutrophils Absolute Auto 12.4 K/mm3 (1.3-6.7); Neutrophils Percent Auto 92.1 % (45.5-73.1); Nucleated Red Blood Cells Perc 0.1 % (0.0-0.2); Platelet Count Result 133 k/mm3 (150-375); Red Blood Count 6.18 M/mm3 (4.2-5.4); Red Cell Distribution Width 15.1 % (11.5-14.5); White Blood Count 13.5 K/mm3 (4.5-10.0)
[2024-10-03] MEDS: SODIUM CHLORIDE 0.9% IV 1,000 ML 999 ML IV CONT ×2 (14:39→15:04)
[2024-10-03 14:49] LABS: INR 1.5; Partial Thromboplastin Time 30.8 Seconds (22.3-36.8); Prothrombin Time 18.5 Seconds (11.1-14.7)
[2024-10-03 14:57] LABS: Alanine Aminotransferase 85 U/L (6-35); Albumin Level 4.7 g/dL (3.5-5.1); Alkaline Phosphatase 188 U/L (38-126); Anion Gap 25 mmol/L (4-12); Aspartate Amino Transferase 293 U/L (14-36); Bilirubin,Total 2.8 mg/dL (0.2-1.3); Blood Urea Nitrogen 100 mg/dL (7-17); Calcium 9.6 mg/dL (8.4-10.2); Carbon Dioxide 24 mmol/L (22-30); Chloride 110 mmol/L (98-107); Estimated Glomerular Filt Rate 14; Glucose 148 mg/dL (65-110); Lactic Acid Reflex 6.3 mmol/L (0.7-2.0); Potassium 3.4 mmol/L (3.4-5.0); Sodium 159 mmol/L (137-145)
--- NOTE | 2024-10-03 15:08 | ED_ITS ---
HPI - Altered Mental Status General Chief Complaint: Altered Mental Status Stated Complaint: ams Time Seen by Provider: 10/03/24 14:15 History of Present Illness HPI narrative: Patient is an 79-year-old female who presents ER with new altered mental status. Found on the ground in her room unable to answer questions. EMS had to place a left humeral intraosseous line. Patient mumbles when you ask her questions but cannot follow commands or provide any history. Related Data Allergies Allergy/AdvReac Type Severity Reaction Status Date / Time BOBO Inhibitors AdvReac Intermediate Cough Verified 08/14/24 04:26 Review of Systems 2 Review of Systems: ROS unobtainable: Yes unobtainable due to mental status PMFSH Past Medical History Medical History (Updated 10/03/24 @ 19:11 by Salvador Monique MD) Dementia Short-term memory loss Hyperlipidemia Hypertension Surgical History Surgical History History of total abdominal hysterectomy (2013) History of tonsillectomy Family History Family History Father Throat cancer Mother Heart failure Cerebrovascular accident Breast cancer Acute myocardial infarction, Onset Age: 63 Social History Social History Social History: Surrogate medical decision maker: Lloyd Guerrero, spouse. Code status: Full code. Smoking status: Former smoker Tobacco type: cigarettes Smoking end date: 08/14/74 Do You Feel Safe in your Home?: Yes Lack of Transportation: No Lack of Food: Never True Current Housing: I Have Housing Concerned About Future Housing: No Difficulty Paying Gas/Electric Bills: No Difficulty Paying for Meds: No Currently Unemployed: No Education: Decline to Answer Difficulty w/ Childcare or Family Care: No Living arrangements: with family Additional living arrangements comments: and dog Spiritual care concerns: No Exam 2 Narrative: GENERAL: Chronically ill-appearing, minimally responsive to pain. HEAD: Normocephalic, atraumatic. EYES: PERRLA and EOMI. ENT: Dry mucous membranes CHEST: Clear to auscultation. No respiratory distress. HEART: Regular rate and rhythm. Normal peripheral pulses. ABDOMEN: Soft, nontender, nondistended. EXTREMITIES: No deformity upper/lower extremities. Left humeral intraosseous line. SKIN: Warm, dry, no rash. NEURO: Patient awake but not particularly alert more oriented. Course Vital Signs Vital signs: Vital Signs Pulse Rate 74 10/03/24 14:16 Respiratory Rate 17 10/03/24 14:16 Blood Pressure 105/78 10/03/24 14:16 Pulse Oximetry 97 10/03/24 14:16 Oxygen Delivery Nasal Cannula 10/03/24 14:16 Oxygen Flow Rate 2 10/03/24 14:16 Temperature 98.1 F 10/03/24 18:45 Pulse Rate 76 10/03/24 18:45 Respiratory Rate 19 10/03/24 18:45 Blood Pressure 94/57 L 10/03/24 18:45 Pulse Oximetry 98 10/03/24 18:45 Oxygen Delivery Nasal Cannula 10/03/24 18:13 Oxygen Flow Rate 1 10/03/24 18:13 MDM - Altered Mental Status Lab Data 10/03/24 14:28 10/03/24 14:28 Labs: Lab Results 10/03/24 10/03/24 10/03/24 Range/Units 14:28 15:24 16:14 WBC 13.5 H (4.5-10.0) K/mm3 RBC 6.18 H (4.2-5.4) M/mm3 Hgb 17.6 H (12.0-15.0) g/dL Hct 56.8 H (37.0-47.0) % MCV 91.9 (80-100) fl MCH 28.5 (26-34) pg MCHC 31.0 L (32-36) g/dl RDW 15.1 H (11.5-14.5) % Plt Count 133 L D (150-375) k/mm3 MPV 13.9 H (7.4-10.4) fl Immature Gran % (Auto) 0.9 H (0-0.5) % Neut % (Auto) 92.1 H (45.5-73.1) % Lymph % (Auto) 4.0 L (18.3-44.2) % [place] % (Auto) 2.9 (2.6-8.5) % Eos % (Auto) 0.0 (0-4.4) % Baso % (Auto) 0.1 L (0.2-1.2) % Lymph # (Auto) 0.54 L (0.9-3.2) K/mm3 [place] # (Auto) 0.4 (0.1-0.6) K/mm3 Eos # (Auto) 0.0 (0-0.3) K/mm3 Baso # (Auto) 0.0 (0.0-0.1) K/mm3 Abs Immat Gran (auto) 0.12 H (0.00-0.031) K/mm3 Absolute Neuts (auto) 12.4 H (1.3-6.7) K/mm3 Absolute Nucleated RBC 0.020 H (0.0-0.012) K/mm3 Nucleated RBC % 0.1 (0.0-0.2) % % Immature Plt Fraction 16.0 H (0.9-11.2) % PT 18.5 H (11.1-14.7) Seconds INR 1.5 APTT 30.8 (22.3-36.8) Seconds Sodium 159 H (137-145) mmol/L Potassium 3.4 (3.4-5.0) mmol/L Chloride 110 H (98-107) mmol/L Carbon Dioxide 24 (22-30) mmol/L Anion Gap 25 H (4-12) mmol/L BUN 100 H D (7-17) mg/dL Creatinine 3.17 H (0.7-1.0) mg/dL Estim Creat Clear Calc Not Reportable Estimated GFR 14 L (59 - ) Glucose 148 H (65-110) mg/dL POC Capillary Glucose (65-105) mg/dl Lactic Acid 6.3 H* (0.7-2.0) mmol/L Calcium 9.6 (8.4-10.2) mg/dL Total Bilirubin 2.8 H (0.2-1.3) mg/dL AST 293 H (14-36) U/L ALT 85 H (6-35) U/L Alkaline Phosphatase 188 H (38-126) U/L Total Creatine Kinase 331 H (30-135) U/L Total Protein 9.0 H (6.3-8.2) g/dL Albumin 4.7 (3.5-5.1) g/dL Urine Color Dark yellow (Yellow) Urine Appearance Cloudy H (Clear) Urine pH 5.5 (5.0-9.0) Ur Specific [place] 1.020 (1.001-1.035) Urine Protein 1+ H (Negative) mg/dL Urine Glucose (UA) Negative (Negative) mg/dL Urine Ketones Trace H (Negative) mg/dL Ur Blood (Man) Negative (Negative) Urine Nitrate Negative (Negative) Urine Bilirubin 2+ H (Negative) Urine Urobilinogen 1.0 (<2.0) mg/dL Leukocyte Esterase Rfl 1+ H (Negative) REID/UL Urine RBC >100 H (0-2) /hpf Urine WBC 11-20 H (0-3) /hpf Ur Squamous Epith Cells None seen (Few) /hpf Urine Bacteria None seen /hpf Urine Casts >20 Hyaline Casts Present (None) /lpf Urine Mucus Present /lpf Urine Yeast (Budding) Present H (None) /hpf Influenza A (RT-PCR) Negative (Negative) Influenza B (RT-PCR) Negative (Negative) RSV (RT-PCR) Negative (Negative) SARS-CoV-2 RNA (RT-PCR) Negative (Negative) 10/03/24 10/03/24 Range/Units 18:53 19:02 WBC (4.5-10.0) K/mm3 RBC (4.2-5.4) M/mm3 Hgb (12.0-15.0) g/dL Hct (37.0-47.0) % MCV (80-100) fl MCH (26-34) pg MCHC (32-36) g/dl RDW (11.5-14.5) % Plt Count (150-375) k/mm3 MPV (7.4-10.4) fl Immature Gran % (Auto) (0-0.5) % Neut % (Auto) (45.5-73.1) % Lymph % (Auto) (18.3-44.2) % [place] % (Auto) (2.6-8.5) % Eos % (Auto) (0-4.4) % Baso % (Auto) (0.2-1.2) % Lymph # (Auto) (0.9-3.2) K/mm3 [place] # (Auto) (0.1-0.6) K/mm3 Eos # (Auto) (0-0.3) K/mm3 Baso # (Auto) (0.0-0.1) K/mm3 Abs Immat Gran (auto) (0.00-0.031) K/mm3 Absolute Neuts (auto) (1.3-6.7) K/mm3 Absolute Nucleated RBC (0.0-0.012) K/mm3 Nucleated RBC % (0.0-0.2) % % Immature Plt Fraction (0.9-11.2) % PT (11.1-14.7) Seconds INR APTT (22.3-36.8) Seconds Sodium Pending (137-145) mmol/L Potassium Pending (3.4-5.0) mmol/L Chloride Pending (98-107) mmol/L Carbon Dioxide Pending (22-30) mmol/L Anion Gap Pending (4-12) mmol/L BUN Pending (7-17) mg/dL Creatinine Pending (0.7-1.0) mg/dL Estim Creat Clear Calc Pending Estimated GFR Pending (59 - ) Glucose Pending (65-110) mg/dL POC Capillary Glucose 85 (65-105) mg/dl Lactic Acid Pending (0.7-2.0) mmol/L Calcium Pending (8.4-10.2) mg/dL Total Bilirubin (0.2-1.3) mg/dL AST (14-36) U/L ALT (6-35) U/L Alkaline Phosphatase (38-126) U/L Total Creatine Kinase (30-135) U/L Total Protein (6.3-8.2) g/dL Albumin (3.5-5.1) g/dL Urine Color (Yellow) Urine Appearance (Clear) Urine pH (5.0-9.0) Ur Specific [place] (1.001-1.035) Urine Protein (Negative) mg/dL Urine Glucose (UA) (Negative) mg/dL Urine Ketones (Negative) mg/dL Ur Blood (Man) (Negative) Urine Nitrate (Negative) Urine Bilirubin (Negative) Urine Urobilinogen (<2.0) mg/dL Leukocyte Esterase Rfl (Negative) REID/UL Urine RBC (0-2) /hpf Urine WBC (0-3) /hpf Ur Squamous Epith Cells (Few) /hpf Urine Bacteria /hpf Urine Casts Hyaline Casts (None) /lpf Urine Mucus /lpf Urine Yeast (Budding) (None) /hpf Influenza A (RT-PCR) (Negative) Influenza B (RT-PCR) (Negative) RSV (RT-PCR) (Negative) SARS-CoV-2 RNA (RT-PCR) (Negative) ABG Data ABG results: 10/03/24 15:22 VBG pH 7.359 VBG pCO2 42.4 VBG pO2 < 27.0 L VBG HCO3 23.4 L O2 Delivery Device Nasal cannula O2 Liters/Min 2.0 FiO2 28 Imaging Data Radiologist's impression: ITS Impressions Chest X-Ray 10/03/24 16:06 IMPRESSION: 1. Persistent airspace opacities in right upper lung zone and left midlung zone, consistent with pneumonia versus metastatic disease. Chest CT is recommended. Head CT 10/03/24 16:08 IMPRESSION: 1. Stable extensive nonspecific cerebral white matter disease, which likely represents chronic small vessel ischemic disease. Cervical Spine CT 10/03/24 16:12 IMPRESSION: 1. No fracture. 2. Severe cervical spondylosis. Critical Care Time Critical Care Time Critical Care Time: Yes Total Critical Care Time: 35 Discharge Plan Discharge Clinical Impression: KRISTOFER (acute kidney injury), Sepsis, Pneumonia, Acute hypernatremia Patient Disposition: Still a Patient Condition: Serious Patient Language: Peruvian Prescriptions: No Action amlodipine 5 mg tablet 5 mg PO DAILY Qty: 90 3RF clopidogrel 75 mg Tablet 75 mg PO QAM Qty: 30 0RF cefdinir 300 mg Capsule 300 mg PO Q12HR Qty: 5 0RF doxycycline hyclate 100 mg Tablet 100 mg PO Q12HR Qty: 5 0RF metoprolol tartrate 25 mg Tablet 25 mg PO Q12HR Qty: 60 0RF quetiapine [Seroquel] 25 mg tablet 25 mg PO HS Qty: 30 0RF aspirin [Children's Aspirin] 81 mg Tablet,Chewable 81 mg PO DAILY@0800 Qty: 30 0RF cholecalciferol (vitamin D3) [Vitamin D3] 25 mcg (1,000 unit) Tablet 25 mcg PO DAILY Qty: 30 0RF atorvastatin 40 mg tablet 40 mg PO DAILY Qty: 90 3RF Follow-up/Referrals: Tj Mcgraw MD [Primary Care Provider] -
--- NOTE | 2024-10-03 15:18 | PC.NURSE ---
pt presents with cyanotic toes and fingers. unable to get accurate temperature on pt. axillary reading reports 94 degrees. nasal O2 sensor applied to get O2 reading
[2024-10-03 15:31] LABS: Fractional Inspired Oxygen 28 %; HCO3 VBG 23.4 mEq/l (24.0-30.0); PCO2 VBG 42.4 mmHg (42.0-48.0); pH VBG 7.359 (7.300-7.400)
[2024-10-03 15:33] LABS: Device NASAL CANNULA; PO2 VBG < 27.0 mmHg (35.0-45.0)
[2024-10-03 15:50] LABS: Add Urine Microscopic? YES; Appearance Urine Cloudy (Clear); Bacteria Urine None Seen /hpf; Bilirubin Urine 2+ (Negative); Blood Urine Negative (Negative); Budding Yeast Urine Present /hpf; Color Urine Dark Yellow (Yellow); Glucose Urine UA Negative (Negative); Hyaline Casts Urine Present /lpf; Ketones Urine Trace mg/dL (Negative); Leukocyte Esterase Ur 1+ LEU/UL (Negative); Mucus Urine Present /lpf; Nitrate Urine Negative (Negative); Non Pathogenic Casts >20; Protein Urine 1+ mg/dL (Negative); RBC Urine >100 /hpf (0-2); Squamous Epithelial Cell Urine None Seen /hpf (Few); pH Urine 5.5 (5.0-9.0)
--- NOTE | 2024-10-03 16:02 | PC.NURSE ---
applied manolo hugger blanket to patient. starting temperature 94.9 core/bladder
[2024-10-03 16:29] LABS: Creatine Kinase 331 U/L (30-135)
[2024-10-03 17:05] LABS: Influenza A QL RT-PCR Negative (Negative); Influenza B QL RT-PCR Negative (Negative); RSV RNA, RT-PCR Negative (Negative); SARS-CoV-2 RNA PCR Negative (Negative)
--- NOTE | 2024-10-03 17:29 | PC.NURSE ---
attempted to call spouse but line was not in use. called [facility] pt family member who states they were unaware of the extent to pt reason for coming to ER and will be coming to ER to be with mom.
[2024-10-03 17:33] LABS: Reflex Lactic Acid Yes or No Add Lactic
[2024-10-03] MEDS: AZITHROMYCIN 500 MG/NS 250 ML 500 MG/250 ML BAG 250 MG IVPB (17:57)
--- NOTE | 2024-10-03 18:11 | PC.NURSE ---
goal temperature of 97.6 core/bladder achieved. removed manolo hugger blanket per provider VORB
[2024-10-03] MEDS: LACTATED RINGERS 1,000 ML 125 ML IV CONT (18:49)
[2024-10-03 18:57] LABS: Glucose Point of Care 85 mg/dl (65-105)
[2024-10-03 19:17] LABS: Lactic Acid 2.1 mmol/L (0.7-2.0)
[2024-10-03 19:18] LABS: Anion Gap 14 mmol/L (4-12); Blood Urea Nitrogen 95 mg/dL (7-17); Calcium 7.4 mg/dL (8.4-10.2); Carbon Dioxide 25 mmol/L (22-30); Chloride 119 mmol/L (98-107); Estimated Glomerular Filt Rate 19; Glucose 89 mg/dL (65-110); Sodium 158 mmol/L (137-145)
--- NOTE | 2024-10-03 19:22 | PC.NURSE ---
replaced depends and did jayant-care on pt who had BM. placed pt on left side. mild skin irritation noted to coccyx. applied ointment to area of concern
--- NOTE | 2024-10-03 19:24 | PM.IMHP ---
H&P: HPI History of Present Illness Date/Time: 10/03/24 19:24 Chief Complaint: Hypernatremia, dehydration, sepsis, altered mental status Narrative: This is an 79-year-old female patient with advanced dementia has been a resident of [facility] for the last 3 weeks since prior hospitalization in August. In July patient was living at home and she had a fall with subsequent hospitalization and has been declining rapidly since then per nursing staff if spoke to patient's daughter on the phone. In the emergency department patient was not oriented and on initial nursing exam on the floor patient would only grunt to questions not answer any questions appropriately. Daughter stated that patient was checked on at 7pm last night then found down on the ground for unknown amount of time at 1330 today. EMS had placed a shoulder IO for access but this has since been removed now that blood pressure has improved and two peripheral IVs in place. Patient is getting LR and D5W for rehydration and treatment of hypernatremia and hyperchloremia. (She did receive 2 liters of Normal Saline in ER with no major change in sodium level and INCREASE in chloride level noted.) On my assessment patient is answering her name, somewhat slow to respond to questions but answering yes and no questions about symptoms. She stated that her name is Amy and then clarified that actual name is Radha Guerrero. Patient denies any pain, shortness of breath, nausea, vomiting, abdominal pain or headache. She is noted to be on oxygen by nasal cannula with 100% saturations, will attempt to wean and obtain ApneaLink to assess for nocturnal oxygen needs. Patient has significant bruising across trunk, bilateral hips and scattered elsewhere. Her prior med list includes aspirin and clopidogrel. CXR in ER shows airspace opacities in right upper lob and left midlung zone that have been persistent from prior imaging and CT is recommended. Due to renal dysfunction, cannot obtain contrast scan. Ordered CT chest abdomen pelvis without contrast as patient also has elevated liver enzymes/bilirubin as well as very significant KRISTOFER (rule out obstructive uropathy.) Labs with numerous abnormalities including above mentioned KRISTOFER, hypernatremia, hyperchloremia, mild anion gap elevation with normal CO2, hypokalemia, very high lactic acid that improved to near normal on repeat after IV fluids. Minor abnormalities also noted like decrease in calcium after IV fluids, slightly elevated CK level and elevation of liver function tests and bilirubin. Patient was started on Rocephin and azithromycin in ER for presumed pneumonia. UA shows hematuria with small amount of WBCs and small leukocyte esterase. Not an obvious infection and might be related to hematuria rather than infection. Culture is pending. EKG in ER with borderline prolonged QTC of 470. Will repeat tomorrow for QTC monitoring. EKG also showed ST/T wave abdnormality in high lateral leads, consider ischemia. On prior admit patient had elevated troponin. Added troponin to 1900 and 2300 labs with flat/downtrending troponin elevation similar to previous admit at 0.4XX, more likely demand ischemia/Type B WV from hypotension/hypoxia than other ACS. Review of Systems Review of Systems: Other than mentioned above in HPI, unable to get further ROS ROS unobtainable: Yes unobtainable due to mental status [facility] Past Medical History Medical History (Updated 10/04/24 @ 00:08 by Cholo Liu APRN) Dementia Short-term memory loss Hyperlipidemia Hypertension Surgical History Surgical History History of total abdominal hysterectomy (2013) History of tonsillectomy Family History Family History Father Throat cancer Mother Heart failure Cerebrovascular accident Breast cancer Acute myocardial infarction, Onset Age: 65 Social History Social History Social History: Surrogate medical decision maker: Daughter Code status: DNR Smoking status: Former smoker Tobacco type: cigarettes Second hand tobacco smoke exposure: No Smoking end date: 08/14/74 Alcohol intake: never Substance use: never Lack of Transportation: No Lack of Food: Never True Current Housing: I Have Housing Concerned About Future Housing: No Difficulty Paying Gas/Electric Bills: No Difficulty Paying for Meds: No Currently Unemployed: No Education: Decline to Answer Difficulty w/ Childcare or Family Care: No Living arrangements: fpc Additional living arrangements comments: Recent Detention placement in August 2024 Spiritual care concerns: No Meds Home Medications and Allergies Home Medications ?Medication ?Instructions ?Recorded ?Confirmed ?Type amlodipine 5 mg tablet 5 mg PO DAILY #90 tabs 06/18/24 10/03/24 Rx atorvastatin 40 mg tablet 40 mg PO DAILY #90 tabs 06/26/24 10/03/24 Rx aspirin 81 mg chewable tablet 81 mg PO DAILY@0800 #30 tabs 08/21/24 10/03/24 Rx (Children's Aspirin) cefdinir 300 mg capsule 300 mg PO Q12HR #5 caps 08/21/24 10/03/24 Rx cholecalciferol (vitamin D3) 25 25 mcg PO DAILY #30 tabs 08/21/24 10/03/24 Rx mcg (1,000 unit) tablet (Vitamin D3) clopidogrel 75 mg tablet 75 mg PO QAM #30 tabs 08/21/24 10/03/24 Rx doxycycline hyclate 100 mg tablet 100 mg PO Q12HR #5 tabs 08/21/24 10/03/24 Rx metoprolol tartrate 25 mg tablet 25 mg PO Q12HR #60 tabs 08/21/24 10/03/24 Rx quetiapine 25 mg tablet (Seroquel) 25 mg PO HS #30 tabs 08/21/24 10/03/24 Rx Allergies Allergy/AdvReac Type Severity Reaction Status Date / Time BOBO Inhibitors AdvReac Intermediate Cough Verified 08/14/24 04:26 Vital Signs Vital Signs - 24 hr 10/03/24 14:16 10/03/24 14:37 10/03/24 14:40 Temperature Pulse Rate 74 76 Respiratory Rate 17 20 Blood Pressure 105/78 116/76 Pulse Oximetry 97 97 97 Oxygen Delivery Nasal Cannula Nasal Cannula Oxygen Flow Rate 2 2 10/03/24 14:53 10/03/24 15:21 10/03/24 15:22 Temperature Pulse Rate 69 Respiratory Rate 18 20 Blood Pressure 107/95 H Pulse Oximetry 97 96 96 Oxygen Delivery Nasal Cannula Oxygen Flow Rate 2 10/03/24 15:57 10/03/24 15:58 10/03/24 16:00 Temperature 34.9 C L 34.9 C L Pulse Rate 72 72 71 Respiratory Rate 19 19 17 Blood Pressure 133/79 116/84 Pulse Oximetry 94 93 94 Oxygen Delivery Oxygen Flow Rate 10/03/24 16:02 10/03/24 16:15 10/03/24 16:30 Temperature 34.9 C L 35.3 C L Pulse Rate 69 Respiratory Rate 17 Blood Pressure Pulse Oximetry 95 97 Oxygen Delivery Nasal Cannula Oxygen Flow Rate 3 10/03/24 16:38 10/03/24 16:41 10/03/24 16:50 Temperature 35.4 C L 35.4 C L 35.6 C L Pulse Rate 69 70 68 Respiratory Rate 17 15 17 Blood Pressure 119/78 102/75 119/81 Pulse Oximetry 97 97 96 Oxygen Delivery Oxygen Flow Rate 10/03/24 17:00 10/03/24 17:10 10/03/24 17:20 Temperature 35.7 C L 35.8 C L 35.9 C L Pulse Rate 69 69 72 Respiratory Rate 19 17 17 Blood Pressure 118/73 109/73 112/75 Pulse Oximetry 97 97 97 Oxygen Delivery Oxygen Flow Rate 10/03/24 17:30 10/03/24 17:45 10/03/24 17:46 Temperature 36.1 C L 36.2 C L 36.2 C L Pulse Rate 72 73 72 Respiratory Rate 17 16 16 Blood Pressure 112/70 107/65 Pulse Oximetry 97 97 97 Oxygen Delivery Oxygen Flow Rate 10/03/24 18:13 10/03/24 18:23 10/03/24 18:30 Temperature 36.6 C 36.7 C Pulse Rate 80 79 Respiratory Rate 17 19 Blood Pressure 94/62 L 94/62 L Pulse Oximetry 98 97 97 Oxygen Delivery Nasal Cannula Oxygen Flow Rate 1 10/03/24 18:45 10/03/24 19:15 Temperature 36.7 C 36.8 C Pulse Rate 76 77 Respiratory Rate 19 15 Blood Pressure 94/57 L 112/88 Pulse Oximetry 98 96 Oxygen Delivery Oxygen Flow Rate Exam Narrative: GENERAL: Chronically ill-appearing, eyes open, slow to respond to questions but answers some appropriately HEAD: Normocephalic EYES: PERRLA and EOMI. ENT: Dry mucous membranes CHEST: Clear to auscultation. No respiratory distress. Bruising on chest and scattered across body HEART: Regular rate and rhythm. Normal peripheral pulses. ABDOMEN: Soft, nontender, nondistended. EXTREMITIES: No deformity upper/lower extremities. Left humeral intraosseous line has been removed. SKIN: Warm, dry, no rash. NEURO: Patient awake, oriented to self but not time, place or situation H&P: Results Labs Labs: Short CBC 10/03/24 Range/Units 14:28 WBC 13.5 H (4.5-10.0) K/mm3 Hgb 17.6 H (12.0-15.0) g/dL Hct 56.8 H (37.0-47.0) % Plt Count 133 L D (150-375) k/mm3 BMP 10/03/24 10/03/24 14:28 19:02 Sodium 159 H 158 H Potassium 3.4 3.0 L Chloride 110 H 119 H Carbon Dioxide 24 25 BUN 100 H D 95 H Creatinine 3.17 H 2.49 H Glucose 148 H 89 Calcium 9.6 7.4 L Cardiac Enzymes 10/03/24 Range/Units 14:28 Total Creatine Kinase 331 H (30-135) U/L Liver Function 10/03/24 Range/Units 14:28 Total Bilirubin 2.8 H (0.2-1.3) mg/dL AST 293 H (14-36) U/L ALT 85 H (6-35) U/L Alkaline Phosphatase 188 H (38-126) U/L Albumin 4.7 (3.5-5.1) g/dL Urine 10/03/24 Range/Units 15:24 Urine Color Dark yellow (Yellow) Urine Appearance Cloudy H (Clear) Urine pH 5.5 (5.0-9.0) Ur Specific [place] 1.020 (1.001-1.035) Urine Protein 1+ H (Negative) mg/dL Urine Glucose (UA) Negative (Negative) mg/dL ABG ABG results: VBG results PH 7.359 pCO2 42.4 PO2 less than 27.0 HC03 23.4 on 2 L nasal cannula Attestation: I personally reviewed and interpreted this ABG as follows: Interpretation: Compensated minimal metabolic acidosis Pulse Oximetry SpO2 results: 100% on nasal cannula Attestation: I personally reviewed and interpreted this pulse oximetry as follows: Interpretation: ApneaLink ordered, titrate as tolerated ECG Attestation: I personally reviewed and interpreted this ECG as follows: ECG completion date: 10/03/24 ECG completion time: 14:46 Prior ECG tracings: available for review Interpretation: Sinus rhythm rate of 67 GA interval 126 QRS duration 97 QTC 470 slightly prolonged QRS axis -25 left axis deviation, ST and T-wave abnormalities in anterior lateral high lateral leads consider ischemia Imaging Chest x-ray: Radiologist's impression: EXAMINATION: XR chest 1V DATE: 10/03/2024 15:58 INDICATION: Altered mental status. TECHNIQUE: A single frontal view of the chest was obtained. COMPARISON: Chest single view 08/30/2024, 08/13/24 FINDINGS: There are airspace opacities in right upper lung zone and left midlung zone. No pleural effusion or pneumothorax. The heart size is normal. IMPRESSION: 1. Persistent airspace opacities in right upper lung zone and left midlung zone, consistent with pneumonia versus metastatic disease. Chest CT is recommended. Reviewed, dictated and finalized at location A. NDARY ENGLISH TEACHER CT scan - head: Radiologist's impression: EXAMINATION: CT brain wo con DATE: 10/03/2024 15:58 INDICATION: Altered mental status. Fall. TECHNIQUE: Computed tomography (CT) of the head was performed without intravenous contrast. The mA was adjusted according to patient size. Iterative reconstruction technique was employed. The dose-length product was 605.33 mGy-cm. COMPARISON: Head CT 08/30/2024 FINDINGS: There are scattered areas of low attenuation in the cerebral white matter. There is no intracranial hemorrhage, acute infarction, or abnormal intracranial mass lesion. The ventricles are normal in size. There are likely changes of ocular lens replacement surgeries. There is mild mucosal thickening in the paranasal sinuses. The mastoid air cells are normal. IMPRESSION: 1. Stable extensive nonspecific cerebral white matter disease, which likely represents chronic small vessel ischemic disease. Reviewed, dictated and finalized at location A. NDARY ENGLISH TEACHER CT scan cervical spine: Radiologist's impression: EXAMINATION: CT cervical spine wo con DATE: 10/03/2024 15:58 INDICATION: Neck injury. Fall. TECHNIQUE: Computed tomography (CT) of the cervical spine was performed without intravenous contrast. Automated exposure control and iterative reconstruction technique were employed. The dose-length product was 171.39 mGy-cm. COMPARISON: CT cervical spine 08/30/24 FINDINGS: There is mild scarring at the lung apices. There is 6 degrees dextrocurvature of cervical spine. Vertebral body heights are normal. There is moderately decreased disc height at C4-C5 and severely decreased disc height at C5-C6 and C6-C7. The following disc levels are specifically discussed: C2-C3: There is no uncovertebral joint osteoarthritis. There is severe bilateral facet joint osteoarthritis. There is mild left neural foraminal stenosis. There is no central canal stenosis. C3-C4: There is moderate bilateral uncovertebral joint osteoarthritis. There is severe bilateral facet joint osteoarthritis. There is mild bilateral neural foraminal stenosis. There is mild central canal stenosis. C4-C5: There is severe bilateral uncovertebral joint osteoarthritis. There is mild right and severe left facet joint osteoarthritis. There is moderate bilateral neural foraminal stenosis. There is mild central canal stenosis. C5-C6: There is severe bilateral uncovertebral joint osteoarthritis. There is severe bilateral facet joint osteoarthritis. There is moderate bilateral neural foraminal stenosis. There is mild central canal stenosis. C6-C7: There is severe bilateral uncovertebral joint osteoarthritis. There is moderate bilateral facet joint osteoarthritis. There is mild bilateral neural foraminal stenosis. There is mild central canal stenosis. C7-T1: There is no uncovertebral joint osteoarthritis. There is severe bilateral facet joint osteoarthritis. There is mild bilateral neural foraminal stenosis. There is no central canal stenosis. IMPRESSION: 1. No fracture. 2. Severe cervical spondylosis. Reviewed, dictated and finalized at location A. NDARY ENGLISH TEACHER Assessment and Plan Assessment and plan (1) Acute hypernatremia: Code(s): E87.0 - Hyperosmolality and hypernatremia Status: Acute Assessment and Plan: -Very significant hypernatremia with serum sodium 159 on ER arrival -Resides at [facility] since August 2024 -Found down at 1330, unknown time on floor -Significant KRISTOFER also noted, suspect major dehydration from not eating/drinking well -History advancing dementia, possible failure to thrive -Associated significant lactic acidosis, hypokalemia and hemoconcentration noted on CBC (2) Sepsis: Code(s): A41.9 - Sepsis, unspecified organism Status: Acute Assessment and Plan: -CXR findings concerning for multilobar pneumonia -Supplemental oxygen started in ER, originally very altered mental status -Lactic acid initial over 6, Bilirubin 2.8 -Reported hypotension for EMS with need for IO placement in left shoulder (since removed) -IV Rocephin and azithromycin started in ER, continued on admission -Lactic acid improved to 2.1 after IV fluids/antibiotics -CT scan chest recommended on CXR results, ordered non-contrast CT chest/abdomen/pelvis routine (3) Pneumonia: Code(s): J18.9 - Pneumonia, unspecified organism Status: Acute Assessment and Plan: See sepsis above (4) Hypokalemia: Code(s): E87.6 - Hypokalemia Status: Acute Assessment and Plan: See acute hypernatremia (5) Increased anion gap metabolic acidosis: Code(s): E87.29 - Other acidosis Status: Acute Assessment and Plan: -Anion gap 25 on arrival, down to 13 by 2300 labs, likely dehydration/starvation ketosis related (6) KRISTOFER (acute kidney injury): Code(s): N17.9 - Acute kidney failure, unspecified Status: Acute Assessment and Plan: See acute hypernatremia (7) Transaminitis: Code(s): R74.01 - Elevation of levels of liver transaminase levels Status: Acute Assessment and Plan: -See sepsis above (8) History of recent fall: Code(s): Z91.81 - History of falling Status: Acute Assessment and Plan: Unknown downtime at [facility]ention (9) Hypertension: Code(s): I10 - Essential (primary) hypertension Status: Chronic Assessment and Plan: -Initial hypotension, hold antihypertensives for now (10) Mixed hyperlipidemia: Code(s): E78.2 - Mixed hyperlipidemia Status: Chronic Assessment and Plan: -Continue home medications when patient taking PO (11) Dementia: Code(s): F03.90 - Unspecified dementia, unspecified severity, without behavioral disturbance, psychotic disturbance, mood disturbance, and anxiety Status: Chronic Assessment and Plan: -Rapidly declining since 07/2024 per RN after speaking to daughter on the phone -May be approaching failure to thrive status -DNR code status, daughter is decision maker since her also has significant dementia (12) Dehydration: Code(s): E86.0 - Dehydration Status: Acute Assessment and Plan: -See hypernatremia above (13) Elevated CPK: Code(s): R74.8 - Abnormal levels of other serum enzymes Status: Acute Assessment and Plan: -Mildly elevated CPK on initial labs (14) Altered mental status: Code(s): R41.82 - Altered mental status, unspecified Status: Acute Assessment and Plan: -Improving mental status since ED visit after rehydration (15) Weakness: Code(s): R53.1 - Weakness Status: Acute Assessment and Plan: -Multifactoral as addressed above, will need PT/OT when clinically stable (16) Elevated troponin: Code(s): R79.89 - Other specified abnormal findings of blood chemistry Status: Acute Assessment and Plan: -Similar to admit in August, troponin elevated to 0.4XX but stable/slightly downtrending on repeat -Likely Type B WV/demand ischemia from hypoxia and hypotension than other ACS cause, patient denies chest pain or difficulty breathing Plan -IV fluid hydration for correction of hypernatremia -Caution to avoid overcorrection too quickly, Q4HR metabolic panels overnight -IMU admission, likely meets inpatient criteria -Thakur in place for I/O accuracy and urinary retention -Avoid normal saline due to hyperchloremia with mild anion gap acidosis -D5W and LR infusing, resultant hyperglycemia noted. Change to LR only. -Drop in serum calcium due to IV fluid rehydration, monitor with labs -2300 labs were drawn above the IV site with D5W infusing, will redraw but all fluids stopped until new labs available. Quality VTE Prophylaxis VTE prophylaxis: mechanical ordered If No VTE Prophylaxis Answer both mechanical and pharmacologic: Reason no pharmacologic proph: medical contraindication (Very low creatinine clearance, diffuse bruising, already on aspirin and Plavix and high fall risk) Due to a high probability of clinically significant, life threatening deterioration, the patient required my highest level of preparedness to intervene emergently and I personally spent this critical care time directly and personally managing the patient. This critical care time included obtaining a history; examining the patient; pulse oximetry; ordering and review of studies; arranging urgent treatment with development of a management plan; evaluation of patient's response to treatment; frequent reassessment; and discussions with other providers. It was exclusive of separately billable procedures and treating other patients and teaching time. Please see Assessment and Plan section and the rest of the note for further information on patient assessment and treatment. Critical Care time: 45 minutes Hospitalist MIPS Advance Care Plan I have confirmed that the patient's Advanced Care Plan is present, code status is documented, or surrogate decision maker is listed in patient medical record.: Yes Medication Reconciliation I have utilized all available resources to obtain, update and review the patients current medications (includes all prescriptions, OTC, herbals, cannabis, and nutritional supplements).: Yes
[2024-10-03] MEDS: DEXTROSE 5% 1,000 ML 1,000 ML 125 ML IV CONT (19:34)
[2024-10-03] MEDS: POTASSIUM CHLORIDE INJ 40 MEQ in SODIUM CHLORIDE 0.9% IV 500 ML 130 MEQ IVPB (19:46)
--- NOTE | 2024-10-03 19:54 | PC.NURSE ---
pt did not arrive with paperwork from [facility] [place]. attempted to call facility at 1949 and again at 1954 to get pt hx, medication, and to give RN update. called with no answer and no voicemail set up to leave a message.
--- NOTE | 2024-10-03 20:48 | PC.NURSE ---
attempted to call [facility] for further medical information and report again at 2047 with no answer.
--- NOTE | 2024-10-03 21:16 | PC.NURSE ---
called [facility] pt son to give update on admission. all questions answered.
--- NOTE | 2024-10-03 21:45 | ADMGEN ---
This patient, Radha Guerrero, was admitted to IMU Room 205-01. Patient/family oriented to hospital policies and general routines including ID bracelet, bed and alarms, visiting hours, pain management, procedures, bathroom and other care routines, personal items, smoking policy, room service/diet, and visiting hours. Information on how to activate the Rapid Response Team has been discussed. Patient/Family are encouraged to report perceived risks to care and to ask questions if they do not understand what they are told or what they should do.
[2024-10-03 23:24] LABS: Troponin I 0.433 ng/mL (0.000-0.034)
[2024-10-03 23:39] LABS: Troponin I 0.413 ng/mL (0.000-0.034)
[2024-10-03 23:45] LABS: Glucose Point of Care 71 mg/dl (65-105)
[2024-10-04] VITALS (14 sets, daily range): BP systolic 102–121; BP diastolic 50–78; PULSE 69–82; RESP 16–18; TEMP 36.4–37; O2SAT 94–100; BMI 21.3
[2024-10-04 00:45] LABS: Glucose Point of Care 113 mg/dl (65-105)
[2024-10-04] MEDS: WATER IVPB (03:50)
[2024-10-04] MEDS: DEXTROSE 5% IVPB (03:50)
[2024-10-04] MEDS: POTASSIUM PHOS M BASIC D BASIC IVPB (03:50)
[2024-10-04 04:24] LABS: Alanine Aminotransferase 56 U/L (6-35); Albumin Level 3.3 g/dL (3.5-5.1); Alkaline Phosphatase 120 U/L (38-126); Anion Gap 15 mmol/L (4-12); Aspartate Amino Transferase 204 U/L (14-36); Bilirubin,Total 1.4 mg/dL (0.2-1.3); Blood Urea Nitrogen 83 mg/dL (7-17); Calcium 7.5 mg/dL (8.4-10.2); Carbon Dioxide 24 mmol/L (22-30); Chloride 118 mmol/L (98-107); Creatine Kinase 398 U/L (30-135); Estimated CRCL calculation 13 ml/min; Estimated Glomerular Filt Rate 21; Glucose 99 mg/dL (65-110); Magnesium 2.5 mg/dL (1.6-2.3); Phosphorus 3.8 mg/dL (2.5-4.5); Potassium 3.3 mmol/L (3.4-5.0); Sodium 157 mmol/L (137-145)
[2024-10-04] MEDS: DESMOPRESSIN ACETATE 4 MCG/ML AMP 1 MCG IV PUSH (06:24)
[2024-10-04 06:45] LABS: Glucose Point of Care 119 mg/dl (65-105)
--- NOTE | 2024-10-04 07:44 | PM.IMPN ---
Progress Note: A&P Assessment and Plan (1) Acute hypernatremia: Code(s): E87.0 - Hyperosmolality and hypernatremia Status: Acute Assessment and Plan: -Very significant hypernatremia with serum sodium 159 on ER arrival -Resides at [facility] since August 2024 -Found down at 1330, unknown time on floor -Significant KRISTOFER also noted, suspect major dehydration from not eating/drinking well -History advancing dementia, possible failure to thrive -Associated significant lactic acidosis, hypokalemia and hemoconcentration noted on CBC -continue D5W after establishing central line (2) Sepsis: Code(s): A41.9 - Sepsis, unspecified organism Status: Acute Assessment and Plan: -CXR findings concerning for multilobar pneumonia -Supplemental oxygen started in ER, originally very altered mental status -Lactic acid initial over 6, Bilirubin 2.8 -Reported hypotension for EMS with need for IO placement in left shoulder (since removed) -IV Rocephin and azithromycin started in ER, continued on admission -Lactic acid improved to 2.1 after IV fluids/antibiotics -CT scan chest recommended on CXR results, ordered non-contrast CT chest/abdomen/pelvis routine (3) Pneumonia: Code(s): J18.9 - Pneumonia, unspecified organism Status: Acute Assessment and Plan: See sepsis above (4) Hypokalemia: Code(s): E87.6 - Hypokalemia Status: Acute Assessment and Plan: See acute hypernatremia (5) Increased anion gap metabolic acidosis: Code(s): E87.29 - Other acidosis Status: Acute Assessment and Plan: -Anion gap 25 on arrival, down to 13 by 2300 labs, likely dehydration/starvation ketosis related (6) KRISTOFER (acute kidney injury): Code(s): N17.9 - Acute kidney failure, unspecified Status: Acute Assessment and Plan: See acute hypernatremia (7) Transaminitis: Code(s): R74.01 - Elevation of levels of liver transaminase levels Status: Acute Assessment and Plan: -See sepsis above (8) History of recent fall: Code(s): Z91.81 - History of falling Status: Acute Assessment and Plan: Unknown downtime at [facility] (9) Hypertension: Code(s): I10 - Essential (primary) hypertension Status: Chronic Assessment and Plan: -Initial hypotension, hold antihypertensives for now (10) Mixed hyperlipidemia: Code(s): E78.2 - Mixed hyperlipidemia Status: Chronic Assessment and Plan: -Continue home medications when patient taking PO (11) Dementia: Code(s): F03.90 - Unspecified dementia, unspecified severity, without behavioral disturbance, psychotic disturbance, mood disturbance, and anxiety Status: Chronic Assessment and Plan: -Rapidly declining since 07/2024 per RN after speaking to daughter on the phone -May be approaching failure to thrive status -DNR code status, daughter is decision maker since her also has significant dementia (12) Dehydration: Code(s): E86.0 - Dehydration Status: Acute Assessment and Plan: -See hypernatremia above (13) Elevated CPK: Code(s): R74.8 - Abnormal levels of other serum enzymes Status: Acute Assessment and Plan: -Mildly elevated CPK on initial labs (14) Altered mental status: Code(s): R41.82 - Altered mental status, unspecified Status: Acute Assessment and Plan: -Improving mental status since ED visit after rehydration (15) Weakness: Code(s): R53.1 - Weakness Status: Acute Assessment and Plan: -Multifactoral as addressed above, will need PT/OT when clinically stable (16) Elevated troponin: Code(s): R79.89 - Other specified abnormal findings of blood chemistry Status: Acute Assessment and Plan: -Similar to admit in August, troponin elevated to 0.4XX but stable/slightly downtrending on repeat -Likely Type B AL/demand ischemia from hypoxia and hypotension than other ACS cause, patient denies chest pain or difficulty breathing Plan -IV fluid hydration for correction of hypernatremia -Caution to avoid overcorrection too quickly, Q4HR metabolic panels overnight -IMU admission, likely meets inpatient criteria -Thakur in place for I/O accuracy and urinary retention -Avoid normal saline due to hyperchloremia with mild anion gap acidosis -D5W and LR infusing, resultant hyperglycemia noted. Change to LR only. -Drop in serum calcium due to IV fluid rehydration, monitor with labs -2300 labs were drawn above the IV site with D5W infusing, will redraw but all fluids stopped until new labs available. Subjective Date/time seen: 10/04/24 07:44 Interval history: Patient has multiple electrolyte abnormality including hypernatremia, KRISTOFER, elevated liver enzymes including bilirubin. Called his POA who read who reported patient has been declining lately. He does not want any aggressive measures but agrees with central line. I spoke to her son again when he visited the hospital .He agrees to consult hospice. Review of Systems Review of Systems: Other than mentioned above in HPI, unable to get further ROS ROS unobtainable: Yes unobtainable due to mental status Exam Narrative: GENERAL: Chronically ill-appearing, eyes open, slow to respond to questions but answers some appropriately HEAD: Normocephalic EYES: PERRLA and EOMI. ENT: Dry mucous membranes CHEST: Clear to auscultation. No respiratory distress. Bruising on chest and scattered across body HEART: Regular rate and rhythm. Normal peripheral pulses. ABDOMEN: Soft, nontender, nondistended. EXTREMITIES: No deformity upper/lower extremities. Left humeral intraosseous line has been removed. SKIN: Warm, dry, no rash. NEURO: Patient awake, oriented to self but not time, place or situation Objective Data Vital Signs Vital Signs: Vital Signs - 24 hr 10/03/24 14:16 10/03/24 14:37 10/03/24 14:40 Temperature Pulse Rate 74 76 Respiratory Rate 17 20 Blood Pressure 105/78 116/76 Pulse Oximetry 97 97 97 Oxygen Delivery Nasal Cannula Nasal Cannula Oxygen Flow Rate 2 2 10/03/24 14:53 10/03/24 15:21 10/03/24 15:22 Temperature Pulse Rate 69 Respiratory Rate 18 20 Blood Pressure 107/95 H Pulse Oximetry 97 96 96 Oxygen Delivery Nasal Cannula Oxygen Flow Rate 2 10/03/24 15:57 10/03/24 15:58 10/03/24 16:00 Temperature 94.9 F L 94.9 F L Pulse Rate 72 72 71 Respiratory Rate 19 19 17 Blood Pressure 133/79 116/84 Pulse Oximetry 94 93 94 Oxygen Delivery Oxygen Flow Rate 10/03/24 16:02 10/03/24 16:15 10/03/24 16:30 Temperature 94.9 F L 95.6 F L Pulse Rate 69 Respiratory Rate 17 Blood Pressure Pulse Oximetry 95 97 Oxygen Delivery Nasal Cannula Oxygen Flow Rate 3 10/03/24 16:38 10/03/24 16:41 10/03/24 16:50 Temperature 95.8 F L 95.8 F L 96.0 F L Pulse Rate 69 70 68 Respiratory Rate 17 15 17 Blood Pressure 119/78 102/75 119/81 Pulse Oximetry 97 97 96 Oxygen Delivery Oxygen Flow Rate 10/03/24 17:00 10/03/24 17:10 10/03/24 17:20 Temperature 96.3 F L 96.5 F L 96.7 F L Pulse Rate 69 69 72 Respiratory Rate 19 17 17 Blood Pressure 118/73 109/73 112/75 Pulse Oximetry 97 97 97 Oxygen Delivery Oxygen Flow Rate 10/03/24 17:30 10/03/24 17:45 10/03/24 17:46 Temperature 97.0 F L 97.2 F L 97.2 F L Pulse Rate 72 73 72 Respiratory Rate 17 16 16 Blood Pressure 112/70 107/65 Pulse Oximetry 97 97 97 Oxygen Delivery Oxygen Flow Rate 10/03/24 18:13 10/03/24 18:23 10/03/24 18:30 Temperature 97.9 F 98.0 F Pulse Rate 80 79 Respiratory Rate 17 19 Blood Pressure 94/62 L 94/62 L Pulse Oximetry 98 97 97 Oxygen Delivery Nasal Cannula Oxygen Flow Rate 1 10/03/24 18:45 10/03/24 19:15 10/03/24 19:54 Temperature 98.1 F 98.2 F 98.1 F Pulse Rate 76 77 67 Respiratory Rate 19 15 18 Blood Pressure 94/57 L 112/88 Pulse Oximetry 98 96 96 Oxygen Delivery Oxygen Flow Rate 10/03/24 20:13 10/03/24 20:15 10/03/24 20:45 Temperature 98.1 F 98.2 F Pulse Rate 70 72 Respiratory Rate 16 17 Blood Pressure 120/72 116/69 Pulse Oximetry 96 96 Oxygen Delivery Oxygen Flow Rate 10/03/24 21:00 10/03/24 21:45 10/03/24 22:38 Temperature 98.2 F 98.2 F Pulse Rate 75 77 Respiratory Rate 20 15 Blood Pressure 111/70 115/91 H Pulse Oximetry 96 100 100 Oxygen Delivery Nasal Cannula Oxygen Flow Rate 1 10/03/24 23:52 10/04/24 00:00 10/04/24 01:09 Temperature 97.4 F L Pulse Rate 74 72 Respiratory Rate 16 Blood Pressure 112/62 Pulse Oximetry 100 100 Oxygen Delivery Nasal Cannula Oxygen Flow Rate 1 10/04/24 02:00 10/04/24 04:00 10/04/24 04:00 Temperature 97.5 F L Pulse Rate 76 82 Respiratory Rate 16 Blood Pressure 121/75 Pulse Oximetry 100 100 Oxygen Delivery Nasal Cannula Oxygen Flow Rate 1 10/04/24 04:00 10/04/24 06:00 Temperature Pulse Rate 77 72 Respiratory Rate Blood Pressure Pulse Oximetry Oxygen Delivery Oxygen Flow Rate Intake/Output Intake/Output: Intake & Output 10/01/24 10/02/24 10/03/24 10/04/24 23:59 23:59 23:59 23:59 Intake Total 2300 Output Total 850 350 Balance 1450 -350 Meds/Results Medications: Active Medications Generic Name Dose Route Start Last Admin Trade Name Freq PRN Reason Stop Dose Admin Acetaminophen 650 mg 10/03/24 18:21 Acetaminophen 325 Mg Tablet PO Q4H PRN Mild Pain (1-3) or Fever Dextrose 12.5 gm 10/03/24 18:22 Dextrose 50% 25 Gm/50 Ml Syringe IV PUSH PRN PRN Hypoglycemia Protocol Glucagon 1 mg 10/03/24 18:22 Glucagon For Inj 1 Mg Vial IM PRN PRN Hypoglycemia Protocol Glucose 15 gm 10/03/24 18:22 Glucose Oral Gel 15 Gm Of Glucse In 37.5 Gm Tube PO PRN PRN Hypoglycemia Protocol Ceftriaxone Sodium 1 gm in 50 mls @ 100 mls/hr 10/04/24 17:00 Rocephin 1 Gm/Ns 50 Ml IVPB Q24H ARINA Azithromycin 500 mg in 250 mls @ 250 mls/hr 10/04/24 17:00 Zithromax IVPB Q24H ARINA Dextrose 1,000 mls @ 100 mls/hr 10/03/24 18:22 Dextrose 5% 1,000 Ml IVPB PRN PRN Hypoglycemia Protocol Potassium Phosphate 40 mmol/ 263.3333 mls @ 43.889 mls/hr 10/04/24 03:30 10/04/24 03:50 Dextrose IVPB 10/04/24 09:29 43.89 mls/hr ONCE ONE Administration Ondansetron HCl 4 mg 10/03/24 18:21 Ondansetron Inj 4 Mg/2 Ml Vial IV PUSH Q4H PRN Nausea Radiology Results: ITS Impressions Chest X-Ray 10/03/24 16:06 IMPRESSION: 1. Persistent airspace opacities in right upper lung zone and left midlung zone, consistent with pneumonia versus metastatic disease. Chest CT is recommended. Head CT 10/03/24 16:08 IMPRESSION: 1. Stable extensive nonspecific cerebral white matter disease, which likely represents chronic small vessel ischemic disease. Cervical Spine CT 10/03/24 16:12 IMPRESSION: 1. No fracture. 2. Severe cervical spondylosis. Labs Labs: Laboratory Results - last 24 hr 10/03/24 10/03/24 10/03/24 14:28 15:22 15:24 WBC 13.5 H RBC 6.18 H Hgb 17.6 H Hct 56.8 H MCV 91.9 MCH 28.5 MCHC 31.0 L RDW 15.1 H Plt Count 133 L D MPV 13.9 H Immature Gran % (Auto) 0.9 H Neut % (Auto) 92.1 H Lymph % (Auto) 4.0 L [place] % (Auto) 2.9 Eos % (Auto) 0.0 Baso % (Auto) 0.1 L Lymph # (Auto) 0.54 L [place] # (Auto) 0.4 Eos # (Auto) 0.0 Baso # (Auto) 0.0 Abs Immat Gran (auto) 0.12 H Absolute Neuts (auto) 12.4 H Absolute Nucleated RBC 0.020 H Nucleated RBC % 0.1 % Immature Plt Fraction 16.0 H PT 18.5 H INR 1.5 APTT 30.8 VBG pH 7.359 VBG pCO2 42.4 VBG pO2 < 27.0 L VBG HCO3 23.4 L O2 Delivery Device Nasal cannula O2 Liters/Min 2.0 FiO2 28 Sodium 159 H Potassium 3.4 Chloride 110 H Carbon Dioxide 24 Anion Gap 25 H BUN 100 H D Creatinine 3.17 H Estim Creat Clear Calc Not Reportable Estimated GFR 14 L Glucose 148 H POC Capillary Glucose Lactic Acid 6.3 H* Calcium 9.6 Phosphorus Magnesium Total Bilirubin 2.8 H AST 293 H ALT 85 H Alkaline Phosphatase 188 H Total Creatine Kinase 331 H Troponin I Total Protein 9.0 H Albumin 4.7 Urine Color Dark yellow Urine Appearance Cloudy H Urine pH 5.5 Ur Specific [place] 1.020 Urine Protein 1+ H Urine Glucose (UA) Negative Urine Ketones Trace H Ur Blood (Man) Negative Urine Nitrate Negative Urine Bilirubin 2+ H Urine Urobilinogen 1.0 Leukocyte Esterase Rfl 1+ H Urine RBC >100 H Urine WBC 11-20 H Ur Squamous Epith Cells None seen Urine Bacteria None seen Urine Casts >20 Hyaline Casts Present Urine Mucus Present Urine Yeast (Budding) Present H Influenza A (RT-PCR) Influenza B (RT-PCR) RSV (RT-PCR) SARS-CoV-2 RNA (RT-PCR) 10/03/24 10/03/24 10/03/24 16:14 18:53 19:02 WBC RBC Hgb Hct MCV MCH MCHC RDW Plt Count MPV Immature Gran % (Auto) Neut % (Auto) Lymph % (Auto) [place] % (Auto) Eos % (Auto) Baso % (Auto) Lymph # (Auto) [place] # (Auto) Eos # (Auto) Baso # (Auto) Abs Immat Gran (auto) Absolute Neuts (auto) Absolute Nucleated RBC Nucleated RBC % % Immature Plt Fraction PT INR APTT VBG pH VBG pCO2 VBG pO2 VBG HCO3 O2 Delivery Device O2 Liters/Min FiO2 Sodium 158 H Potassium 3.0 L Chloride 119 H Carbon Dioxide 25 Anion Gap 14 H BUN 95 H Creatinine 2.49 H Estim Creat Clear Calc Not Reportable Estimated GFR 19 L Glucose 89 POC Capillary Glucose 85 Lactic Acid 2.1 H Calcium 7.4 L Phosphorus Magnesium Total Bilirubin AST ALT Alkaline Phosphatase Total Creatine Kinase Troponin I 0.433 H* Total Protein Albumin Urine Color Urine Appearance Urine pH Ur Specific [place] Urine Protein Urine Glucose (UA) Urine Ketones Ur Blood (Man) Urine Nitrate Urine Bilirubin Urine Urobilinogen Leukocyte Esterase Rfl Urine RBC Urine WBC Ur Squamous Epith Cells Urine Bacteria Urine Casts Hyaline Casts Urine Mucus Urine Yeast (Budding) Influenza A (RT-PCR) Negative Influenza B (RT-PCR) Negative RSV (RT-PCR) Negative SARS-CoV-2 RNA (RT-PCR) Negative 10/03/24 10/03/24 10/04/24 23:01 23:43 00:43 WBC RBC Hgb Hct MCV MCH MCHC RDW Plt Count MPV Immature Gran % (Auto) Neut % (Auto) Lymph % (Auto) [place] % (Auto) Eos % (Auto) Baso % (Auto) Lymph # (Auto) [place] # (Auto) Eos # (Auto) Baso # (Auto) Abs Immat Gran (auto) Absolute Neuts (auto) Absolute Nucleated RBC Nucleated RBC % % Immature Plt Fraction PT INR APTT VBG pH VBG pCO2 VBG pO2 VBG HCO3 O2 Delivery Device O2 Liters/Min FiO2 Sodium Potassium Chloride Carbon Dioxide Anion Gap BUN Creatinine Estim Creat Clear Calc Estimated GFR Glucose POC Capillary Glucose 71 113 H Lactic Acid Calcium Phosphorus Magnesium Total Bilirubin AST ALT Alkaline Phosphatase Total Creatine Kinase Troponin I 0.413 H* Total Protein Albumin Urine Color Urine Appearance Urine pH Ur Specific [place] Urine Protein Urine Glucose (UA) Urine Ketones Ur Blood (Man) Urine Nitrate Urine Bilirubin Urine Urobilinogen Leukocyte Esterase Rfl Urine RBC Urine WBC Ur Squamous Epith Cells Urine Bacteria Urine Casts Hyaline Casts Urine Mucus Urine Yeast (Budding) Influenza A (RT-PCR) Influenza B (RT-PCR) RSV (RT-PCR) SARS-CoV-2 RNA (RT-PCR) 10/04/24 10/04/24 02:32 06:38 WBC RBC Hgb Hct MCV MCH MCHC RDW Plt Count MPV Immature Gran % (Auto) Neut % (Auto) Lymph % (Auto) [place] % (Auto) Eos % (Auto) Baso % (Auto) Lymph # (Auto) [place] # (Auto) Eos # (Auto) Baso # (Auto) Abs Immat Gran (auto) Absolute Neuts (auto) Absolute Nucleated RBC Nucleated RBC % % Immature Plt Fraction PT INR APTT VBG pH VBG pCO2 VBG pO2 VBG HCO3 O2 Delivery Device O2 Liters/Min FiO2 Sodium 157 H Potassium 3.3 L Chloride 118 H Carbon Dioxide 24 Anion Gap 15 H BUN 83 H D Creatinine 2.24 H Estim Creat Clear Calc 13 Estimated GFR 21 L Glucose 99 POC Capillary Glucose 119 H Lactic Acid Calcium 7.5 L Phosphorus 3.8 Magnesium 2.5 H Total Bilirubin 1.4 H AST 204 H ALT 56 H Alkaline Phosphatase 120 Total Creatine Kinase 398 H Troponin I Total Protein 6.0 L Albumin 3.3 L Urine Color Urine Appearance Urine pH Ur Specific [place] Urine Protein Urine Glucose (UA) Urine Ketones Ur Blood (Man) Urine Nitrate Urine Bilirubin Urine Urobilinogen Leukocyte Esterase Rfl Urine RBC Urine WBC Ur Squamous Epith Cells Urine Bacteria Urine Casts Hyaline Casts Urine Mucus Urine Yeast (Budding) Influenza A (RT-PCR) Influenza B (RT-PCR) RSV (RT-PCR) SARS-CoV-2 RNA (RT-PCR) Quality VTE Prophylaxis VTE prophylaxis: mechanical ordered Hospitalist MIPS Advance Care Plan I have confirmed that the patient's Advanced Care Plan is present, code status is documented, or surrogate decision maker is listed in patient medical record.: Yes Medication Reconciliation I have utilized all available resources to obtain, update and review the patients current medications (includes all prescriptions, OTC, herbals, cannabis, and nutritional supplements).: Yes
--- NOTE | 2024-10-04 08:00 | ECG_ITS ---
Test Date: 2024-10-04 10:35:19 Measurements Intervals Mccune Rate: 72 P: 19 NE: 124 QRS: -21 QRSD: 89 T: 163 QT: 406 QTc: 446 Interpretive Statements SINUS RHYTHM BORDERLINE R WAVE PROGRESSION, ANTERIOR LEADS INFERIOR INFARCT, AGE INDETERMINATE ST-T WAVE ABNORMALITY IN ANTEROLATLAT/HIGH LAT LEADS- CONSIDER ISCHEMIA BASELINE ARTIFACT- I, II, III, AVR, V1, V4-V5 ABNORMAL ECG Compared to ECG 10/03/2024 14:46:40 NO SIGNIFICANT CHANGE Electronically Signed On 10-04-2024 11:21:43 PACKAGE REINSPECTOR by Titi Starkey D.O.
--- NOTE | 2024-10-04 09:27 | PM.CNCAR ---
Assessment and Plan Assessment and plan (1) Elevated troponin: Code(s): R79.89 - Other specified abnormal findings of blood chemistry Status: Acute Assessment and Plan: Troponin is elevated at 0.433, 0.413. This trend is not consistent with ACS and in the absence of symptoms concerning for ACS, troponin leak can be considered an incidental lab finding most likely secondary to her acute kidney injury, sepsis, acidosis. Cannot rule out underlying CAD, however, unless her clinical situation changes would not anticipate any inpatient ischemic workup. Would resume ASA, plavix, statin started during her previous admission. Cardiology will sign off please call with questions. (2) Hypertension: Code(s): I10 - Essential (primary) hypertension Status: Chronic Assessment and Plan: Blood pressure controlled. History of Present Illness History of Present Illness Consult date/time: 10/04/24 09:27 Requesting physician: Minesh Vizcarra MD Consult reason: Other (elevated troponin) Reason For Visit: devaughn, hypernatremia, pneumonia, ams, sepsis Narrative: Radha Guerrero is an 79 year old with advanced dementia who is admitted to the hospital following a fall. Cardiology is consulted because of elevated troponin levels. The patient does not verbalize much but does indicate that she is not having and has not had any chest pain. She has a family member at the bedside who provides information that she does not have any previous cardiac history. She was admitted in August of this year with a similar presentation and troponin levels were drawn at that time and were elevated. This was not felt to be related to ACS given clinical situation of fall and rhabdomyolysis. At the time of my evaluation she is comfortable and has no complaints. Review of Systems Review of Systems: ROS unobtainable: Yes unobtainable due to mental status PMFSH Past Medical History Medical History Dementia Short-term memory loss Hyperlipidemia Hypertension Surgical History Surgical History History of total abdominal hysterectomy (2013) History of tonsillectomy Family History Family History Father Throat cancer Mother Heart failure Cerebrovascular accident Breast cancer Acute myocardial infarction, Onset Age: 65 Social History Social History Social History: Surrogate medical decision maker: Daughter Code status: DNR Smoking status: Former smoker Tobacco type: cigarettes Second hand tobacco smoke exposure: No Smoking end date: 08/14/74 Alcohol intake: never Substance use: never Lack of Transportation: No Lack of Food: Never True Current Housing: I Have Housing Concerned About Future Housing: No Difficulty Paying Gas/Electric Bills: No Difficulty Paying for Meds: No Currently Unemployed: No Education: Decline to Answer Difficulty w/ Childcare or Family Care: No Living arrangements: residential Additional living arrangements comments: Recent Long Term placement in August 2024 Spiritual care concerns: No Meds Home Medications and Allergies Home Medications ?Medication ?Instructions ?Recorded ?Confirmed ?Type amlodipine 5 mg tablet 5 mg PO DAILY #90 tabs 06/18/24 10/03/24 Rx atorvastatin 40 mg tablet 40 mg PO DAILY #90 tabs 06/26/24 10/03/24 Rx aspirin 81 mg chewable tablet 81 mg PO DAILY@0800 #30 tabs 08/21/24 10/03/24 Rx (Children's Aspirin) cefdinir 300 mg capsule 300 mg PO Q12HR #5 caps 08/21/24 10/03/24 Rx cholecalciferol (vitamin D3) 25 25 mcg PO DAILY #30 tabs 08/21/24 10/03/24 Rx mcg (1,000 unit) tablet (Vitamin D3) clopidogrel 75 mg tablet 75 mg PO QAM #30 tabs 08/21/24 10/03/24 Rx doxycycline hyclate 100 mg tablet 100 mg PO Q12HR #5 tabs 08/21/24 10/03/24 Rx metoprolol tartrate 25 mg tablet 25 mg PO Q12HR #60 tabs 08/21/24 10/03/24 Rx quetiapine 25 mg tablet (Seroquel) 25 mg PO HS #30 tabs 08/21/24 10/03/24 Rx Allergies Allergy/AdvReac Type Severity Reaction Status Date / Time BOBO Inhibitors AdvReac Intermediate Cough Verified 08/14/24 04:26 Vital Signs Vital Signs - 24 hr 10/03/24 14:16 10/03/24 14:37 10/03/24 14:40 Temperature Pulse Rate 74 76 Respiratory Rate 17 20 Blood Pressure 105/78 116/76 Pulse Oximetry 97 97 97 Oxygen Delivery Nasal Cannula Nasal Cannula Oxygen Flow Rate 2 2 10/03/24 14:53 10/03/24 15:21 10/03/24 15:22 Temperature Pulse Rate 69 Respiratory Rate 18 20 Blood Pressure 107/95 H Pulse Oximetry 97 96 96 Oxygen Delivery Nasal Cannula Oxygen Flow Rate 2 10/03/24 15:57 10/03/24 15:58 10/03/24 16:00 Temperature 34.9 C L 34.9 C L Pulse Rate 72 72 71 Respiratory Rate 19 19 17 Blood Pressure 133/79 116/84 Pulse Oximetry 94 93 94 Oxygen Delivery Oxygen Flow Rate 10/03/24 16:02 10/03/24 16:15 10/03/24 16:30 Temperature 34.9 C L 35.3 C L Pulse Rate 69 Respiratory Rate 17 Blood Pressure Pulse Oximetry 95 97 Oxygen Delivery Nasal Cannula Oxygen Flow Rate 3 10/03/24 16:38 10/03/24 16:41 10/03/24 16:50 Temperature 35.4 C L 35.4 C L 35.6 C L Pulse Rate 69 70 68 Respiratory Rate 17 15 17 Blood Pressure 119/78 102/75 119/81 Pulse Oximetry 97 97 96 Oxygen Delivery Oxygen Flow Rate 10/03/24 17:00 10/03/24 17:10 10/03/24 17:20 Temperature 35.7 C L 35.8 C L 35.9 C L Pulse Rate 69 69 72 Respiratory Rate 19 17 17 Blood Pressure 118/73 109/73 112/75 Pulse Oximetry 97 97 97 Oxygen Delivery Oxygen Flow Rate 10/03/24 17:30 10/03/24 17:45 10/03/24 17:46 Temperature 36.1 C L 36.2 C L 36.2 C L Pulse Rate 72 73 72 Respiratory Rate 17 16 16 Blood Pressure 112/70 107/65 Pulse Oximetry 97 97 97 Oxygen Delivery Oxygen Flow Rate 10/03/24 18:13 10/03/24 18:23 10/03/24 18:30 Temperature 36.6 C 36.7 C Pulse Rate 80 79 Respiratory Rate 17 19 Blood Pressure 94/62 L 94/62 L Pulse Oximetry 98 97 97 Oxygen Delivery Nasal Cannula Oxygen Flow Rate 1 10/03/24 18:45 10/03/24 19:15 10/03/24 19:54 Temperature 36.7 C 36.8 C 36.7 C Pulse Rate 76 77 67 Respiratory Rate 19 15 18 Blood Pressure 94/57 L 112/88 Pulse Oximetry 98 96 96 Oxygen Delivery Oxygen Flow Rate 10/03/24 20:13 10/03/24 20:15 10/03/24 20:45 Temperature 36.7 C 36.8 C Pulse Rate 70 72 Respiratory Rate 16 17 Blood Pressure 120/72 116/69 Pulse Oximetry 96 96 Oxygen Delivery Oxygen Flow Rate 10/03/24 21:00 10/03/24 21:45 10/03/24 22:38 Temperature 36.8 C 36.8 C Pulse Rate 75 77 Respiratory Rate 20 15 Blood Pressure 111/70 115/91 H Pulse Oximetry 96 100 100 Oxygen Delivery Nasal Cannula Oxygen Flow Rate 1 10/03/24 23:52 10/04/24 00:00 10/04/24 01:09 Temperature 36.3 C L Pulse Rate 74 72 Respiratory Rate 16 Blood Pressure 112/62 Pulse Oximetry 100 100 Oxygen Delivery Nasal Cannula Oxygen Flow Rate 1 10/04/24 02:00 10/04/24 04:00 10/04/24 04:00 Temperature 36.4 C L Pulse Rate 76 82 Respiratory Rate 16 Blood Pressure 121/75 Pulse Oximetry 100 100 Oxygen Delivery Nasal Cannula Oxygen Flow Rate 1 10/04/24 04:00 10/04/24 06:00 10/04/24 08:00 Temperature 36.8 C Pulse Rate 77 72 80 Respiratory Rate 16 Blood Pressure 118/78 Pulse Oximetry 96 Oxygen Delivery Oxygen Flow Rate Exam Const: General: comfortable, no acute distress, alert and awake HENMT: Head: normal to inspection Eyes: General: appearance normal, both eyes and all related structures Pupils: Equal, round and reactive pupils present Neck: Neck: normal visual inspection, supple and no JVD Carotids: normal carotid upstroke Resp: Effort & Inspection: normal respiratory effort Auscultation: clear to auscultation bilaterally Cardio: Rate: regular rate Rhythm: regular rhythm Heart sounds: S1 normal heart sound present, S2 normal heart sound present and no murmurs GI: Auscultation: normal bowel sounds Skin: General skin exam: normal color Neuro: General: patient oriented x3 Cranial nerves: Yes Equal, round and reactive pupils present Extrem: General: normal to inspection Psych: Appearance: grossly normal Mental Status: mental status grossly abnormal Results Labs and Meds 10/03/24 14:28 10/04/24 02:32 Lab results: Cardiac Enzymes 10/03/24 10/03/24 10/03/24 Range/Units 14:28 19:02 23:01 AST 293 H (14-36) U/L Troponin I 0.433 H* 0.413 H* (0.000-0.034) ng/mL 10/04/24 Range/Units 02:32 AST 204 H (14-36) U/L Troponin I (0.000-0.034) ng/mL Coagulation 10/03/24 Range/Units 14:28 PT 18.5 H (11.1-14.7) Seconds APTT 30.8 (22.3-36.8) Seconds CBC 10/03/24 Range/Units 14:28 WBC 13.5 H (4.5-10.0) K/mm3 RBC 6.18 H (4.2-5.4) M/mm3 Hgb 17.6 H (12.0-15.0) g/dL Hct 56.8 H (37.0-47.0) % Plt Count 133 L D (150-375) k/mm3 Lymph # (Auto) 0.54 L (0.9-3.2) K/mm3 Oliver # (Auto) 0.4 (0.1-0.6) K/mm3 Eos # (Auto) 0.0 (0-0.3) K/mm3 Baso # (Auto) 0.0 (0.0-0.1) K/mm3 Comprehensive Metabolic Panel 10/03/24 10/03/24 10/03/24 Range/Units 14: 19:02 23:01 Sodium 159 H 158 H (137-145) mmol/L Potassium 3.4 3.0 L (3.4-5.0) mmol/L Chloride 110 H 119 H (98-107) mmol/L Carbon Dioxide 24 25 (22-30) mmol/L BUN 100 H D 95 H (7-17) mg/dL Creatinine 3.17 H 2.49 H (0.7-1.0) mg/dL Glucose 148 H 89 (65-110) mg/dL Calcium 9.6 7.4 L (8.4-10.2) mg/dL AST 293 H (14-36) U/L ALT 85 H (6-35) U/L Alkaline Phosphatase 188 H (38-126) U/L Total Protein 9.0 H (6.3-8.2) g/dL Albumin 4.7 (3.5-5.1) g/dL 10/04/24 Range/Units 02:32 Sodium 157 H (137-145) mmol/L Potassium 3.3 L (3.4-5.0) mmol/L Chloride 118 H (98-107) mmol/L Carbon Dioxide 24 (22-30) mmol/L BUN 83 H D (7-17) mg/dL Creatinine 2.24 H (0.7-1.0) mg/dL Glucose 99 (65-110) mg/dL Calcium 7.5 L (8.4-10.2) mg/dL AST 204 H (14-36) U/L ALT 56 H (6-35) U/L Alkaline Phosphatase 120 (38-126) U/L Total Protein 6.0 L (6.3-8.2) g/dL Albumin 3.3 L (3.5-5.1) g/dL Intake and Output 10/03/24 10/04/24 10/04/24 23:59 07:59 15:59 Intake Total 1300 Output Total 850 350 Balance 450 -350 Intake: IV 1300 Sodium Chloride 0.9% IV 1,000 1000 ml @ 999 mls/hr IV CONT .Q1H1M STA Rx#:[id number] Azithromycin 500 mg/Ns 250 ml 250 500 mg In 250 ml @ 250 mls/hr IVPB ONCE STA Rx#:[id number] cefTRIAXone 1 GM/NS 50 ML 1 gm 50 In 50 ml @ 100 mls/hr IVPB ONCE STA Rx#:[id number] Output: Urine 425 Catheter Urine 425 350 Urethral Catheter 425 350 Other: # Unmeasured Voids 0 Patient Weight 10/04/24 23:59 Weight 49.6 kg
--- NOTE | 2024-10-04 11:51 | PC.NURSE ---
I assessed this patient for a midline. I assessed both upper extremities and found no veins on either side that would be of adequate size to support either a midline or a PICC line on this patient. These findings were discussed with bedside RN Marina Norris
[2024-10-04 12:14] LABS: Glucose Point of Care 119 mg/dl (65-105)
[2024-10-04 13:37] LABS: IFOB Positive Control Positive; Immunochemical Fecal Occult Bl Positive (N)
[2024-10-04] MEDS: DEXTROSE 5% IN WATER 1,000 ML 100 ML IV CONT ×2 (14:19→23:54)
--- NOTE | 2024-10-04 14:33 | PCSTNOTE ---
Attempted bedside swallow evaluation but patient having central line placed and not doing well enough for this evaluation at this time per nurse and physician.
--- NOTE | 2024-10-04 14:49 | WPDPROCEDUR ---
Procedures Central Line Placement Right Femoral: Central Line Date: 10/04/24 Central Line Time: 13:00 Discussed w/ the patient/family/POA,the placement of a central venous catheter, including its clinical necessity/indication & associated potential risks, benifits and alternatives.: Yes The patient/family/POA understand(s) and acknowledge(s) the need to proceed with central venous catheter insertion as an important element of the patient's clinical management.: Yes Consent: I have discussed with the patient and/or surrogate, the non-emergent placement of a central venous catheter, including its clinical necessity/indication and associated potential risks and complications. The patient and/or surrogate understand(s) and acknowledge(s) the need to proceed with central venous catheter insertion as an important element of the patient's clinical management. Time Out Performed: Yes Patient Position: supine Patient placed on monitor/pulse ox: Yes Provider Prep: mask, sterile gown, sterile gloves, Max. sterile barrier precautions, cap and hand hygiene with conventional soap/water or alcohol based hand rub Central line prep: Povidone-Iodine 1% Local anesthesia used: lidocaine 1% Amount of anesthesia used (ml): 5 Sterile US Technique with sterile gel/sterile probe covers: Yes Central line lumen inserted: triple Length (cm): 16 Depth of Insertion (cm): 16 Post Procedure: sutured in place, good blood return, all ports aspirated, flushed, capped, transparent dressing and aseptic technique maintained throughout procedure Patient tolerated procedure: well Complications: none Additional comments: Required 2 attempts. On 1st name unable to advance guidewire.
[2024-10-04 15:08] LABS: Alanine Aminotransferase 47 U/L (6-35); Albumin Level 2.9 g/dL (3.5-5.1); Alkaline Phosphatase 101 U/L (38-126); Anion Gap 12 mmol/L (4-12); Aspartate Amino Transferase 179 U/L (14-36); Bilirubin,Total 1.3 mg/dL (0.2-1.3); Blood Urea Nitrogen 69 mg/dL (7-17); Calcium 6.8 mg/dL (8.4-10.2); Carbon Dioxide 25 mmol/L (22-30); Chloride 116 mmol/L (98-107); Estimated CRCL calculation 17 ml/min; Estimated Glomerular Filt Rate 30; Glucose 98 mg/dL (65-110); Magnesium 2.1 mg/dL (1.6-2.3); Phosphorus 6.1 mg/dL (2.5-4.5); Potassium 2.9 mmol/L (3.4-5.0); Sodium 153 mmol/L (137-145)
--- NOTE | 2024-10-04 15:19 | PC.NURSE ---
On 10/04/24, the student, [Rose Luo], provided care and completed [facility] documentation on this patient. I have reviewed the student's documentation and agree with the findings.
[2024-10-04] MEDS: AZITHROMYCIN 500 MG/NS 250 ML 500 MG/250 ML BAG 250 MG IVPB (17:23)
[2024-10-04 18:56] LABS: Anion Gap 8 mmol/L (4-12); Blood Urea Nitrogen 61 mg/dL (7-17); Calcium 6.6 mg/dL (8.4-10.2); Carbon Dioxide 26 mmol/L (22-30); Chloride 115 mmol/L (98-107); Estimated CRCL calculation 19 ml/min; Estimated Glomerular Filt Rate 34; Glucose 155 mg/dL (65-110); Magnesium 1.9 mg/dL (1.6-2.3); Potassium 2.9 mmol/L (3.4-5.0); Sodium 149 mmol/L (137-145)
[2024-10-04] MEDS: KCL 40 MEQ/WATER 100 ML 100 ML 25 ML IVPB ×2 (19:51→23:50)
[2024-10-05] VITALS (13 sets, daily range): BP systolic 102–117; BP diastolic 53–67; PULSE 63–78; RESP 12–24; TEMP 36.2–36.9; O2SAT 98–100
[2024-10-05 00:21] LABS: Glucose Point of Care 131 mg/dl (65-105)
[2024-10-05] MEDS: CENTRAL LINE FLUSH 10 ML IV PUSH ×3 (05:48→20:23)
[2024-10-05] MEDS: ONDANSETRON INJ 4 MG/2 ML VIAL IV PUSH (05:49)
[2024-10-05 06:04] LABS: Anion Gap 5 mmol/L (4-12); Blood Urea Nitrogen 45 mg/dL (7-17); Calcium 6.7 mg/dL (8.4-10.2); Carbon Dioxide 24 mmol/L (22-30); Chloride 115 mmol/L (98-107); Estimated CRCL calculation 25 ml/min; Estimated Glomerular Filt Rate 46; Glucose 124 mg/dL (65-110); Potassium 3.7 mmol/L (3.4-5.0); Sodium 144 mmol/L (137-145)
[2024-10-05 06:12] LABS: Hematocrit 30.2 % (37.0-47.0); Hemoglobin 9.6 g/dL (12.0-15.0); Immature Platelet Fraction Pct 11.3 % (0.9-11.2); Mean Corpuscular HGB Conc 31.8 g/dl (32-36); Mean Corpuscular Hemoglobin 29.2 pg (26-34); Mean Corpuscular Volume 91.8 fl (80-100); Mean Platelet Volume 13.3 fl (7.4-10.4); Platelet Count Result 55 k/mm3 (150-375); Red Blood Count 3.29 M/mm3 (4.2-5.4); Red Cell Distribution Width 14.6 % (11.5-14.5); White Blood Count 7.9 K/mm3 (4.5-10.0)
--- NOTE | 2024-10-05 08:49 | PM.IMPN ---
Progress Note: A&P Assessment and Plan (1) Acute hypernatremia: Code(s): E87.0 - Hyperosmolality and hypernatremia Status: Acute Assessment and Plan: -Very significant hypernatremia with serum sodium 159 on ER arrival -Resides at [facility] since August 2024 -Found down at 1330, unknown time on floor -Significant KRISTOFER also noted, suspect major dehydration from not eating/drinking well -History advancing dementia, possible failure to thrive -Associated significant lactic acidosis, hypokalemia and hemoconcentration noted on CBC -continue D5W after establishing central line (2) Sepsis: Code(s): A41.9 - Sepsis, unspecified organism Status: Acute Assessment and Plan: -CXR findings concerning for multilobar pneumonia -Supplemental oxygen started in ER, originally very altered mental status -Lactic acid initial over 6, Bilirubin 2.8 -Reported hypotension for EMS with need for IO placement in left shoulder (since removed) -IV Rocephin and azithromycin started in ER, continued on admission -Lactic acid improved to 2.1 after IV fluids/antibiotics -CT scan chest recommended on CXR results, ordered non-contrast CT chest/abdomen/pelvis routine (3) Pneumonia: Code(s): J18.9 - Pneumonia, unspecified organism Status: Acute Assessment and Plan: See sepsis above (4) Hypokalemia: Code(s): E87.6 - Hypokalemia Status: Acute Assessment and Plan: See acute hypernatremia (5) Increased anion gap metabolic acidosis: Code(s): E87.29 - Other acidosis Status: Acute Assessment and Plan: -Anion gap 25 on arrival, down to 13 by 2300 labs, likely dehydration/starvation ketosis related (6) KRISTOFER (acute kidney injury): Code(s): N17.9 - Acute kidney failure, unspecified Status: Acute Assessment and Plan: See acute hypernatremia (7) Transaminitis: Code(s): R74.01 - Elevation of levels of liver transaminase levels Status: Acute Assessment and Plan: -See sepsis above (8) History of recent fall: Code(s): Z91.81 - History of falling Status: Acute Assessment and Plan: Unknown downtime at [facility] (9) Hypertension: Code(s): I10 - Essential (primary) hypertension Status: Chronic Assessment and Plan: -Initial hypotension, hold antihypertensives for now (10) Mixed hyperlipidemia: Code(s): E78.2 - Mixed hyperlipidemia Status: Chronic Assessment and Plan: -Continue home medications when patient taking PO (11) Dementia: Code(s): F03.90 - Unspecified dementia, unspecified severity, without behavioral disturbance, psychotic disturbance, mood disturbance, and anxiety Status: Chronic Assessment and Plan: -Rapidly declining since 07/2024 per RN after speaking to daughter on the phone -May be approaching failure to thrive status -DNR code status, daughter is decision maker since her also has significant dementia (12) Dehydration: Code(s): E86.0 - Dehydration Status: Acute Assessment and Plan: -See hypernatremia above (13) Elevated CPK: Code(s): R74.8 - Abnormal levels of other serum enzymes Status: Acute Assessment and Plan: -Mildly elevated CPK on initial labs (14) Altered mental status: Code(s): R41.82 - Altered mental status, unspecified Status: Acute Assessment and Plan: -Improving mental status since ED visit after rehydration (15) Weakness: Code(s): R53.1 - Weakness Status: Acute Assessment and Plan: -Multifactoral as addressed above, will need PT/OT when clinically stable (16) Elevated troponin: Code(s): R79.89 - Other specified abnormal findings of blood chemistry Status: Acute Assessment and Plan: -Similar to admit in August, troponin elevated to 0.4XX but stable/slightly downtrending on repeat -Likely Type B TX/demand ischemia from hypoxia and hypotension than other ACS cause, patient denies chest pain or difficulty breathing Plan -IV fluid hydration for correction of hypernatremia -Caution to avoid overcorrection too quickly, Q4HR metabolic panels overnight -IMU admission, likely meets inpatient criteria -Thakur in place for I/O accuracy and urinary retention -Avoid normal saline due to hyperchloremia with mild anion gap acidosis -D5W and LR infusing, resultant hyperglycemia noted. Change to LR only. -Drop in serum calcium due to IV fluid rehydration, monitor with labs -2300 labs were drawn above the IV site with D5W infusing, will redraw but all fluids stopped until new labs available. Subjective Date/time seen: 10/05/24 08:49 Interval history: Interval history: Discussed with son who does not wanted aggressive measures. Hospice is consulted. Stool occult is positive. Patient hemoglobin has been dropped. Will discuss the goal of care and if necessary will consult GI. Patient is not ideal candidate for EGD or colonoscopy. Her platelet has been decreased as well. Ordered fibrinogen, PT PTT INR, peripheral blood smear to rule out DIC. Also ordered anemia panel. 10/05: Prognosis guarded. Consulted hospice Review of Systems Review of Systems: Other than mentioned above in HPI, unable to get further ROS ROS unobtainable: Yes unobtainable due to mental status Exam Narrative: GENERAL: Chronically ill-appearing, eyes open, slow to respond to questions but answers some appropriately HEAD: Normocephalic EYES: PERRLA and EOMI. ENT: Dry mucous membranes CHEST: Clear to auscultation. No respiratory distress. Bruising on chest and scattered across body HEART: Regular rate and rhythm. Normal peripheral pulses. ABDOMEN: Soft, nontender, nondistended. EXTREMITIES: No deformity upper/lower extremities. Left humeral intraosseous line has been removed. SKIN: Warm, dry, no rash. NEURO: Patient awake, oriented to self but not time, place or situation Objective Data Vital Signs Vital Signs: Vital Signs - 24 hr 10/04/24 10:00 10/04/24 11:44 10/04/24 12:00 Temperature 98.2 F Pulse Rate 76 74 69 Respiratory Rate 18 Blood Pressure 102/50 L Pulse Oximetry 99 Oxygen Delivery Oxygen Flow Rate 10/04/24 12:00 10/04/24 14:00 10/04/24 16:00 Temperature 97.5 F L Pulse Rate 72 75 Respiratory Rate 16 Blood Pressure 107/62 Pulse Oximetry 97 98 Oxygen Delivery Nasal Cannula Oxygen Flow Rate 1 10/04/24 16:00 10/04/24 16:00 10/04/24 18:00 Temperature Pulse Rate 77 80 Respiratory Rate Blood Pressure Pulse Oximetry 94 Oxygen Delivery Nasal Cannula Oxygen Flow Rate 1 10/04/24 20:00 10/04/24 20:00 10/04/24 20:00 Temperature 98.6 F Pulse Rate 78 78 Respiratory Rate 16 Blood Pressure 111/57 L Pulse Oximetry 100 100 Oxygen Delivery Nasal Cannula Oxygen Flow Rate 1 10/04/24 22:00 10/05/24 00:00 10/05/24 00:00 Temperature 98.5 F Pulse Rate 71 78 Respiratory Rate 15 Blood Pressure 111/60 Pulse Oximetry 100 100 Oxygen Delivery Nasal Cannula Oxygen Flow Rate 1 10/05/24 00:00 10/05/24 02:00 10/05/24 04:00 Temperature Pulse Rate 73 70 74 Respiratory Rate Blood Pressure Pulse Oximetry Oxygen Delivery Oxygen Flow Rate 10/05/24 04:00 10/05/24 04:00 10/05/24 06:00 Temperature 98.3 F Pulse Rate 69 64 Respiratory Rate 16 Blood Pressure 106/62 Pulse Oximetry 100 99 Oxygen Delivery Nasal Cannula Oxygen Flow Rate 1 10/05/24 08:00 10/05/24 08:18 Temperature 97.5 F L Pulse Rate 73 Respiratory Rate 16 Blood Pressure 102/53 L Pulse Oximetry 98 100 Oxygen Delivery Nasal Cannula Oxygen Flow Rate 1 Intake/Output Intake/Output: Intake & Output 10/02/24 10/03/24 10/04/24 10/05/24 23:59 23:59 23:59 23:59 Intake Total 2300 1057.9 50 Output Total 850 750 700 Balance 1450 307.9 -650 Meds/Results Medications: Active Medications Generic Name Dose Route Start Last Admin Trade Name Freq PRN Reason Stop Dose Admin Acetaminophen 650 mg 10/03/24 18:21 Acetaminophen 325 Mg Tablet PO Q4H PRN Mild Pain (1-3) or Fever Dextrose 12.5 gm 10/03/24 18:22 Dextrose 50% 25 Gm/50 Ml Syringe IV PUSH PRN PRN Hypoglycemia Protocol Glucagon 1 mg 10/03/24 18:22 Glucagon For Inj 1 Mg Vial IM PRN PRN Hypoglycemia Protocol Glucose 15 gm 10/03/24 18:22 Glucose Oral Gel 15 Gm Of Glucse In 37.5 Gm Tube PO PRN PRN Hypoglycemia Protocol Ceftriaxone Sodium 1 gm in 50 mls @ 100 mls/hr 10/04/24 17:00 10/04/24 16:50 Rocephin 1 Gm/Ns 50 Ml IVPB 100 mls/hr Q24H ARINA Administration Azithromycin 500 mg in 250 mls @ 250 mls/hr 10/04/24 17:00 10/04/24 17:23 Zithromax IVPB 250 mls/hr Q24H ARINA Administration Dextrose 1,000 mls @ 100 mls/hr 10/03/24 18:22 Dextrose 5% 1,000 Ml IVPB PRN PRN Hypoglycemia Protocol Dextrose 1,000 mls @ 100 mls/hr 10/04/24 13:18 10/04/24 23:54 Dextrose 5% In Water IV CONT 10/05/24 09:50 100 mls/hr .Q10H ARINA Administration Fluconazole/Dextrose 100 mg in 50 mls @ 50 mls/hr 10/04/24 23:40 10/05/24 01:09 Diflucan 100 Mg/Nacl 50 Ml IVPB Infused HS ARINA Infusion Dextrose 1,000 mls @ 100 mls/hr 10/05/24 10:00 Dextrose 5% 1,000 Ml IV CONT .Q10H ARINA Ondansetron HCl 4 mg 10/03/24 18:21 10/05/24 05:49 Ondansetron Inj 4 Mg/2 Ml Vial IV PUSH 4 mg Q4H PRN Administration Nausea Sodium Chloride 10 ml 10/05/24 06:00 10/05/24 05:48 Central Line Flush IV PUSH 10 ml Q8HR ARINA Administration Sodium Chloride 20 ml 10/05/24 05:36 Central Line Flush IV PUSH PRN PRN after blood draws Radiology Results: ITS Impressions Chest X-Ray 10/03/24 16:06 IMPRESSION: 1. Persistent airspace opacities in right upper lung zone and left midlung zone, consistent with pneumonia versus metastatic disease. Chest CT is recommended. Head CT 10/03/24 16:08 IMPRESSION: 1. Stable extensive nonspecific cerebral white matter disease, which likely represents chronic small vessel ischemic disease. Cervical Spine CT 10/03/24 16:12 IMPRESSION: 1. No fracture. 2. Severe cervical spondylosis. Chest/Abdomen/Pelvis CT 10/04/24 11:08 Impression: Multifocal pulmonary consolidation, as above, most compatible with multifocal pneumonia. Follow-up to radiographic resolution is advised. Labs Labs: Laboratory Results - last 24 hr 10/04/24 10/04/24 10/04/24 11:30 13:15 14:12 WBC RBC Hgb Hct MCV MCH MCHC RDW Plt Count MPV % Immature Plt Fraction Sodium 153 H Potassium 2.9 L Chloride 116 H Carbon Dioxide 25 Anion Gap 12 BUN 69 H D Creatinine 1.65 H Estim Creat Clear Calc 17 Estimated GFR 30 L Glucose 98 POC Capillary Glucose 119 H Calcium 6.8 L Phosphorus 6.1 H Magnesium 2.1 Total Bilirubin 1.3 AST 179 H ALT 47 H Alkaline Phosphatase 101 Total Protein 6.0 L Albumin 2.9 L Stl Occult Blood (IFOB) Positive H 10/04/24 10/05/24 10/05/24 18:37 00:16 05:45 WBC RBC Hgb Hct MCV MCH MCHC RDW Plt Count MPV % Immature Plt Fraction Sodium 149 H 144 Potassium 2.9 L 3.7 Chloride 115 H 115 H Carbon Dioxide 26 24 Anion Gap 8 5 BUN 61 H 45 H D Creatinine 1.48 H 1.14 H Estim Creat Clear Calc 19 25 Estimated GFR 34 L 46 L Glucose 155 H 124 H POC Capillary Glucose 131 H Calcium 6.6 L 6.7 L Phosphorus Magnesium 1.9 Total Bilirubin AST ALT Alkaline Phosphatase Total Protein Albumin Stl Occult Blood (IFOB) 10/05/24 06:05 WBC 7.9 RBC 3.29 L Hgb 9.6 L D Hct 30.2 L MCV 91.8 MCH 29.2 MCHC 31.8 L RDW 14.6 H Plt Count 55 L D MPV 13.3 H % Immature Plt Fraction 11.3 H Sodium Potassium Chloride Carbon Dioxide Anion Gap BUN Creatinine Estim Creat Clear Calc Estimated GFR Glucose POC Capillary Glucose Calcium Phosphorus Magnesium Total Bilirubin AST ALT Alkaline Phosphatase Total Protein Albumin Stl Occult Blood (IFOB) Quality VTE Prophylaxis VTE prophylaxis: mechanical ordered Hospitalist MIPS Advance Care Plan I have confirmed that the patient's Advanced Care Plan is present, code status is documented, or surrogate decision maker is listed in patient medical record.: Yes Medication Reconciliation I have utilized all available resources to obtain, update and review the patients current medications (includes all prescriptions, OTC, herbals, cannabis, and nutritional supplements).: Yes
[2024-10-05] MEDS: DEXTROSE 5% 1,000 ML 1,000 ML 100 ML IV CONT ×2 (10:37→20:22)
--- NOTE | 2024-10-05 10:39 | PCSTNOTE ---
Attempted bedside swallow evaluation but nurse indicated patient not candidate currently due to lethargy. She stated she will talk to the doctor to cancel the order.
[2024-10-05 10:48] LABS: Immature Reticulocyte Fraction 5.6 % (3.0-15.9); Reticulocyte Hemoglobin Conten 34.3 pg (28.2-36.6); Reticulocytes Absolute 0.02 10^6/uL (0.02-0.10)
[2024-10-05 11:01] LABS: INR 1.4; Prothrombin Time 17.6 Seconds (11.1-14.7)
[2024-10-05 11:02] LABS: Fibrinogen 342 mg/dl (215-510)
[2024-10-05 11:04] LABS: Lactate Dehydrogenase 752 U/L (120-246)
[2024-10-05 11:05] LABS: Bilirubin,Total 1.1 mg/dL (0.2-1.3)
[2024-10-05 11:11] LABS: Iron 57 ug/dL (37-170)
[2024-10-05 11:20] LABS: Percent Iron Saturation 35 % (20-50)
[2024-10-05 12:11] LABS: Folic Acid 2.8 ng/mL (2.76->20)
[2024-10-05 12:14] LABS: Glucose Point of Care 127 mg/dl (65-105)
[2024-10-05 13:43] LABS: Ferritin > 2000.00 ng/mL (11.1-264)
[2024-10-05] MEDS: AZITHROMYCIN 500 MG/NS 250 ML 500 MG/250 ML BAG 250 MG IVPB (16:07)
[2024-10-05 16:29] LABS: Hematocrit 28.6 % (37.0-47.0); Hemoglobin 9.2 g/dL (12.0-15.0)
--- NOTE | 2024-10-05 19:09 | PC.NURSE ---
This patient, Radha Guerrero, was transferred to [facility] on 10/05/24 at 1909. Personal belongings sent with patient. Appropriate documentation sent with patient.
[2024-10-05] MEDS: FLUCONAZOLE 100 MG/NACL 50 ML 100 MG/50 ML BTL 50 MG IVPB ×2 (20:21)
[2024-10-05 20:36] LABS: Glucose Point of Care 115 mg/dl (65-105)
[2024-10-05 23:47] LABS: Glucose Point of Care 113 mg/dl (65-105)
[2024-10-06 06:01] VITALS: BP 113/61; PULSE 80; RESP 18; TEMP 36.4; O2SAT 98
[2024-10-06 06:10] LABS: Glucose Point of Care 121 mg/dl (65-105)
[2024-10-06 07:54] LABS: Haptoglobin 144 mg/dL (43-212)
[2024-10-06] MEDS: CENTRAL LINE FLUSH 10 ML IV PUSH (08:23)
[2024-10-06] MEDS: DEXTROSE 5% 1,000 ML 1,000 ML 100 ML IV CONT (08:23)
--- NOTE | 2024-10-06 10:40 | PM.IMPN ---
Progress Note: A&P Assessment and Plan (1) Acute hypernatremia: Code(s): E87.0 - Hyperosmolality and hypernatremia Status: Acute Assessment and Plan: -Very significant hypernatremia with serum sodium 159 on ER arrival -Resides at [facility] since August 2024 -Found down at 1330, unknown time on floor -Significant KRISTOFER also noted, suspect major dehydration from not eating/drinking well -History advancing dementia, possible failure to thrive -Associated significant lactic acidosis, hypokalemia and hemoconcentration noted on CBC -continue D5W after establishing central line (2) Sepsis: Code(s): A41.9 - Sepsis, unspecified organism Status: Acute Assessment and Plan: -CXR findings concerning for multilobar pneumonia -Supplemental oxygen started in ER, originally very altered mental status -Lactic acid initial over 6, Bilirubin 2.8 -Reported hypotension for EMS with need for IO placement in left shoulder (since removed) -IV Rocephin and azithromycin started in ER, continued on admission -Lactic acid improved to 2.1 after IV fluids/antibiotics -CT scan chest recommended on CXR results, ordered non-contrast CT chest/abdomen/pelvis routine (3) Pneumonia: Code(s): J18.9 - Pneumonia, unspecified organism Status: Acute Assessment and Plan: See sepsis above (4) Hypokalemia: Code(s): E87.6 - Hypokalemia Status: Acute Assessment and Plan: See acute hypernatremia (5) Increased anion gap metabolic acidosis: Code(s): E87.29 - Other acidosis Status: Acute Assessment and Plan: -Anion gap 25 on arrival, down to 13 by 2300 labs, likely dehydration/starvation ketosis related (6) KRISTOFER (acute kidney injury): Code(s): N17.9 - Acute kidney failure, unspecified Status: Acute Assessment and Plan: See acute hypernatremia (7) Transaminitis: Code(s): R74.01 - Elevation of levels of liver transaminase levels Status: Acute Assessment and Plan: -See sepsis above (8) History of recent fall: Code(s): Z91.81 - History of falling Status: Acute Assessment and Plan: [facility] (9) Hypertension: Code(s): I10 - Essential (primary) hypertension Status: Chronic Assessment and Plan: -Initial hypotension, hold antihypertensives for now (10) Mixed hyperlipidemia: Code(s): E78.2 - Mixed hyperlipidemia Status: Chronic Assessment and Plan: -Continue home medications when patient taking PO (11) Dementia: Code(s): F03.90 - Unspecified dementia, unspecified severity, without behavioral disturbance, psychotic disturbance, mood disturbance, and anxiety Status: Chronic Assessment and Plan: -Rapidly declining since 07/2024 per RN after speaking to daughter on the phone -May be approaching failure to thrive status -DNR code status, daughter is decision maker since her also has significant dementia (12) Dehydration: Code(s): E86.0 - Dehydration Status: Acute Assessment and Plan: -See hypernatremia above (13) Elevated CPK: Code(s): R74.8 - Abnormal levels of other serum enzymes Status: Acute Assessment and Plan: -Mildly elevated CPK on initial labs (14) Altered mental status: Code(s): R41.82 - Altered mental status, unspecified Status: Acute Assessment and Plan: -Improving mental status since ED visit after rehydration (15) Weakness: Code(s): R53.1 - Weakness Status: Acute Assessment and Plan: -Multifactoral as addressed above, will need PT/OT when clinically stable (16) Elevated troponin: Code(s): R79.89 - Other specified abnormal findings of blood chemistry Status: Acute Assessment and Plan: -Similar to admit in August, troponin elevated to 0.4XX but stable/slightly downtrending on repeat -Likely Type B GA/demand ischemia from hypoxia and hypotension than other ACS cause, patient denies chest pain or difficulty breathing Plan -IV fluid hydration for correction of hypernatremia -Caution to avoid overcorrection too quickly, Q4HR metabolic panels overnight -IMU admission, likely meets inpatient criteria -Thakur in place for I/O accuracy and urinary retention -Avoid normal saline due to hyperchloremia with mild anion gap acidosis -D5W and LR infusing, resultant hyperglycemia noted. Change to LR only. -Drop in serum calcium due to IV fluid rehydration, monitor with labs -2300 labs were drawn above the IV site with D5W infusing, will redraw but all fluids stopped until new labs available. Subjective Date/time seen: 10/06/24 10:40 Interval history: Pending hospice eval. Urine culture positive for Karine. Review of Systems Review of Systems: Other than mentioned above in HPI, unable to get further ROS ROS unobtainable: Yes unobtainable due to mental status Exam Narrative: GENERAL: Chronically ill-appearing, eyes open, slow to respond to questions but answers some appropriately HEAD: Normocephalic EYES: PERRLA and EOMI. ENT: Dry mucous membranes CHEST: Clear to auscultation. No respiratory distress. Bruising on chest and scattered across body HEART: Regular rate and rhythm. Normal peripheral pulses. ABDOMEN: Soft, nontender, nondistended. EXTREMITIES: No deformity upper/lower extremities. Left humeral intraosseous line has been removed. SKIN: Warm, dry, no rash. NEURO: Patient awake, oriented to self but not time, place or situation Objective Data Vital Signs Vital Signs: Vital Signs - 24 hr 10/05/24 12:00 10/05/24 12:00 10/05/24 14:00 Temperature 97.4 F L Pulse Rate 71 71 65 Respiratory Rate 12 Blood Pressure 117/67 Pulse Oximetry 99 Oxygen Delivery Oxygen Flow Rate 10/05/24 16:00 10/05/24 16:00 10/05/24 19:11 Temperature 97.1 F L 97.6 F Pulse Rate 68 66 71 Respiratory Rate 24 H 17 Blood Pressure 110/65 108/63 Pulse Oximetry 99 100 Oxygen Delivery Oxygen Flow Rate 10/05/24 20:00 10/05/24 21:22 10/06/24 06:01 Temperature 97.9 F 97.6 F Pulse Rate 71 69 80 Respiratory Rate 17 20 18 Blood Pressure 107/56 L 113/61 Pulse Oximetry 100 98 98 Oxygen Delivery Nasal Cannula Oxygen Flow Rate 1 Intake/Output Intake/Output: Intake & Output 10/03/24 10/04/24 10/05/24 10/06/24 23:59 23:59 23:59 23:59 Intake Total 2300 1357.9 1025 0 Output Total 850 185 818 7524 Balance 1450 607.9 325 -2000 Meds/Results Medications: Active Medications Generic Name Dose Route Start Last Admin Trade Name Freq PRN Reason Stop Dose Admin Acetaminophen 650 mg 10/03/24 18:21 Acetaminophen 325 Mg Tablet PO Q4H PRN Mild Pain (1-3) or Fever Dextrose 12.5 gm 10/03/24 18:22 Dextrose 50% 25 Gm/50 Ml Syringe IV PUSH PRN PRN Hypoglycemia Protocol Glucagon 1 mg 10/03/24 18:22 Glucagon For Inj 1 Mg Vial IM PRN PRN Hypoglycemia Protocol Glucose 15 gm 10/03/24 18:22 Glucose Oral Gel 15 Gm Of Glucse In 37.5 Gm Tube PO PRN PRN Hypoglycemia Protocol Ceftriaxone Sodium 1 gm in 50 mls @ 100 mls/hr 10/04/24 17:00 10/05/24 16:06 Rocephin 1 Gm/Ns 50 Ml IVPB 100 mls/hr Q24H ARINA Administration Azithromycin 500 mg in 250 mls @ 250 mls/hr 10/04/24 17:00 10/05/24 16:07 Zithromax IVPB 250 mls/hr Q24H AIRNA Administration Dextrose 1,000 mls @ 100 mls/hr 10/03/24 18:22 Dextrose 5% 1,000 Ml IVPB PRN PRN Hypoglycemia Protocol Fluconazole/Dextrose 100 mg in 50 mls @ 50 mls/hr 10/04/24 23:40 10/05/24 20:21 Diflucan 100 Mg/Nacl 50 Ml IVPB 50 mls/hr HS ARINA Administration Dextrose 1,000 mls @ 100 mls/hr 10/05/24 10:00 10/05/24 20:22 Dextrose 5% 1,000 Ml IV CONT 100 mls/hr .Q10H ARINA Administration Ondansetron HCl 4 mg 10/03/24 18:21 10/05/24 05:49 Ondansetron Inj 4 Mg/2 Ml Vial IV PUSH 4 mg Q4H PRN Administration Nausea Sodium Chloride 10 ml 10/05/24 06:00 10/05/24 20:23 Central Line Flush IV PUSH 10 ml Q8HR ARINA Administration Sodium Chloride 20 ml 10/05/24 05:36 Central Line Flush IV PUSH PRN PRN after blood draws Radiology Results: ITS Impressions Chest X-Ray 10/03/24 16:06 IMPRESSION: 1. Persistent airspace opacities in right upper lung zone and left midlung zone, consistent with pneumonia versus metastatic disease. Chest CT is recommended. Head CT 10/03/24 16:08 IMPRESSION: 1. Stable extensive nonspecific cerebral white matter disease, which likely represents chronic small vessel ischemic disease. Cervical Spine CT 10/03/24 16:12 IMPRESSION: 1. No fracture. 2. Severe cervical spondylosis. Chest/Abdomen/Pelvis CT 10/04/24 11:08 Impression: Multifocal pulmonary consolidation, as above, most compatible with multifocal pneumonia. Follow-up to radiographic resolution is advised. Labs Labs: Laboratory Results - last 24 hr 10/05/24 10/05/24 10/05/24 10:34 10:35 11:36 Hgb Hct Absolute Retic 0.02 Percent Retic 0.50 L Immature Retic Fraction 5.6 Retic Hgb Content 34.3 Haptoglobin 144 PT 17.6 H INR 1.4 APTT 29.0 Fibrinogen 342 POC Capillary Glucose 127 H Iron 57 TIBC 164 L % Saturation 35 Ferritin > 2000.00 H Total Bilirubin 1.1 Direct Bilirubin 0.0 Lactate Dehydrogenase 752 H Vitamin B12 787.0 Folate 2.8 LIZZETTE, IgG Interpret Neg LIZZETTE, Complement Interp Negative 10/05/24 10/05/24 10/05/24 16:25 17:57 23:42 Hgb 9.2 L Hct 28.6 L Absolute Retic Percent Retic Immature Retic Fraction Retic Hgb Content Haptoglobin PT INR APTT Fibrinogen POC Capillary Glucose 115 H 113 H Iron TIBC % Saturation Ferritin Total Bilirubin Direct Bilirubin Lactate Dehydrogenase Vitamin B12 Folate LIZZETTE, IgG Interpret LIZZETTE, Complement Interp 10/06/24 06:04 Hgb Hct Absolute Retic Percent Retic Immature Retic Fraction Retic Hgb Content Haptoglobin PT INR APTT Fibrinogen POC Capillary Glucose 121 H Iron TIBC % Saturation Ferritin Total Bilirubin Direct Bilirubin Lactate Dehydrogenase Vitamin B12 Folate LIZZETTE, IgG Interpret LIZZETTE, Complement Interp Quality VTE Prophylaxis VTE prophylaxis: mechanical ordered
[2024-10-06 11:46] LABS: Glucose Point of Care 139 mg/dl (65-105)
--- NOTE | 2024-10-06 12:16 | PM.DS ---
DS: Admitting Diagnosis Discharge Date 10/06/2024 Admitting Diagnosis Hypernatremia, dehydration, sepsis, altered mental status DS: Discharge Diagnosis Discharge Diagnosis (1) Acute hypernatremia: Code(s): E87.0 - Hyperosmolality and hypernatremia Status: Acute Assessment and Plan: Discharged with hospice -Very significant hypernatremia with serum sodium 159 on ER arrival -Resides at [facility] since August 2024 -Found down at 1330, unknown time on floor -Significant KRISTOFER also noted, suspect major dehydration from not eating/drinking well -History advancing dementia, possible failure to thrive -Associated significant lactic acidosis, hypokalemia and hemoconcentration noted on CBC -continue D5W after establishing central line (2) Sepsis: Code(s): A41.9 - Sepsis, unspecified organism Status: Acute Assessment and Plan: -CXR findings concerning for multilobar pneumonia -Supplemental oxygen started in ER, originally very altered mental status -Lactic acid initial over 6, Bilirubin 2.8 -Reported hypotension for EMS with need for IO placement in left shoulder (since removed) -IV Rocephin and azithromycin started in ER, continued on admission -Lactic acid improved to 2.1 after IV fluids/antibiotics -CT scan chest recommended on CXR results, ordered non-contrast CT chest/abdomen/pelvis routine (3) Pneumonia: Code(s): J18.9 - Pneumonia, unspecified organism Status: Acute Assessment and Plan: See sepsis above (4) Hypokalemia: Code(s): E87.6 - Hypokalemia Status: Acute Assessment and Plan: See acute hypernatremia (5) Increased anion gap metabolic acidosis: Code(s): E87.29 - Other acidosis Status: Acute Assessment and Plan: -Anion gap 25 on arrival, down to 13 by 2300 labs, likely dehydration/starvation ketosis related (6) KRISTOFER (acute kidney injury): Code(s): N17.9 - Acute kidney failure, unspecified Status: Acute Assessment and Plan: See acute hypernatremia (7) Transaminitis: Code(s): R74.01 - Elevation of levels of liver transaminase levels Status: Acute Assessment and Plan: -See sepsis above (8) History of recent fall: Code(s): Z91.81 - History of falling Status: Acute Assessment and Plan: [facility] (9) Hypertension: Code(s): I10 - Essential (primary) hypertension Status: Chronic Assessment and Plan: -Initial hypotension, hold antihypertensives for now (10) Mixed hyperlipidemia: Code(s): E78.2 - Mixed hyperlipidemia Status: Chronic Assessment and Plan: -Continue home medications when patient taking PO (11) Dementia: Code(s): F03.90 - Unspecified dementia, unspecified severity, without behavioral disturbance, psychotic disturbance, mood disturbance, and anxiety Status: Chronic Assessment and Plan: -Rapidly declining since 07/2024 per RN after speaking to daughter on the phone -May be approaching failure to thrive status -DNR code status, daughter is decision maker since her also has significant dementia (12) Dehydration: Code(s): E86.0 - Dehydration Status: Acute Assessment and Plan: -See hypernatremia above (13) Elevated CPK: Code(s): R74.8 - Abnormal levels of other serum enzymes Status: Acute Assessment and Plan: -Mildly elevated CPK on initial labs (14) Altered mental status: Code(s): R41.82 - Altered mental status, unspecified Status: Acute Assessment and Plan: -Improving mental status since ED visit after rehydration (15) Weakness: Code(s): R53.1 - Weakness Status: Acute Assessment and Plan: -Multifactoral as addressed above, will need PT/OT when clinically stable (16) Elevated troponin: Code(s): R79.89 - Other specified abnormal findings of blood chemistry Status: Acute Assessment and Plan: -Similar to admit in August, troponin elevated to 0.4XX but stable/slightly downtrending on repeat -Likely Type B NV/demand ischemia from hypoxia and hypotension than other ACS cause, patient denies chest pain or difficulty breathing (17) UTI (urinary tract infection): Code(s): N39.0 - Urinary tract infection, site not specified Status: Acute Assessment and Plan: Urine culture positive for Karine , please complete Fluconazole 100mg PO for 10 days .If patient cant swallow consider IV. DS: Summary Hospital Course Hospital Course: This is an 79-year-old female patient with advanced dementia has been a resident of [facility] for the last 3 weeks since prior hospitalization in August. In July patient was living at home and she had a fall with subsequent hospitalization and has been declining rapidly since then per nursing staff if spoke to patient's daughter on the phone. In the emergency department patient was not oriented and on initial nursing exam on the floor patient would only grunt to questions not answer any questions appropriately. Daughter stated that patient was checked on at 7pm last night then found down on the ground for unknown amount of time at 1330 today. EMS had placed a shoulder IO for access but this has since been removed now that blood pressure has improved and two peripheral IVs in place. Patient is getting LR and D5W for rehydration and treatment of hypernatremia and hyperchloremia. (She did receive 2 liters of Normal Saline in ER with no major change in sodium level and INCREASE in chloride level noted.) On my assessment patient is answering her name, somewhat slow to respond to questions but answering yes and no questions about symptoms. She stated that her name is Amy and then clarified that actual name is Radha Guerrero. Patient denies any pain, shortness of breath, nausea, vomiting, abdominal pain or headache. She is noted to be on oxygen by nasal cannula with 100% saturations, will attempt to wean and obtain [employer] to assess for nocturnal oxygen needs. Patient has significant bruising across trunk, bilateral hips and scattered elsewhere. Her prior med list includes aspirin and clopidogrel. CXR in ER shows airspace opacities in right upper lob and left midlung zone that have been persistent from prior imaging and CT is recommended. Due to renal dysfunction, cannot obtain contrast scan. Ordered CT chest abdomen pelvis without contrast as patient also has elevated liver enzymes/bilirubin as well as very significant KRISTOFER (rule out obstructive uropathy.) Labs with numerous abnormalities including above mentioned KRISTOFER, hypernatremia, hyperchloremia, mild anion gap elevation with normal CO2, hypokalemia, very high lactic acid that improved to near normal on repeat after IV fluids. Minor abnormalities also noted like decrease in calcium after IV fluids, slightly elevated CK level and elevation of liver function tests and bilirubin. Patient was started on Rocephin and azithromycin in ER for presumed pneumonia. UA shows hematuria with small amount of WBCs and small leukocyte esterase. Not an obvious infection and might be related to hematuria rather than infection. Culture is pending. EKG in ER with borderline prolonged QTC of 470. Will repeat tomorrow for QTC monitoring. EKG also showed ST/T wave abdnormality in high lateral leads, consider ischemia. On prior admit patient had elevated troponin. Added troponin to 1900 and 2300 labs with flat/downtrending troponin elevation similar to previous admit at 0.4XX, more likely demand ischemia/Type B NV from hypotension/hypoxia than other ACS. On 10/04: Patient was responding to any qs. Patient has multiple electrolyte abnormality including hypernatremia,increased trops, KRISTOFER, elevated liver enzymes including bilirubin. Called his POA who read who reported patient has been declining lately. He does not want any aggressive measures but agrees with central line. I spoke to her son again when he visited the hospital .He agrees to consult hospice and currently discharged on hospice. Today patient (10/06) responding better and able to follow commands but still confused. Patient had episode of vomiting today but no further episodes.Urine culture positive for Karine , please complete Fluconazole 100mg PO for 10 days .If patient cant swallow consider IV. Patient is discharged with hospice. Time Spent with Patient Time attestation: Total time spent providing and/or coordinating discharge services: Exam Narrative: GENERAL: Chronically ill-appearing, eyes open, slow to respond to questions but answers some appropriately HEAD: Normocephalic EYES: PERRLA and EOMI. ENT: Dry mucous membranes CHEST: Clear to auscultation. No respiratory distress. Bruising on chest and scattered across body HEART: Regular rate and rhythm. Normal peripheral pulses. ABDOMEN: Soft, nontender, nondistended. EXTREMITIES: No deformity upper/lower extremities. Left humeral intraosseous line has been removed. SKIN: Warm, dry, no rash. NEURO: Patient awake, oriented to self but not time, place or situation DS: Data Data Completed and Pending Pending studies at discharge: Pending at discharge 10/05/24 09:01 Cytology [PTH] Routine Labs on day of discharge: Labs from last 24 hours 10/06/24 10/06/24 10/05/24 11:40 06:04 23:42 Hgb Hct Haptoglobin POC Capillary Glucose 139 H 121 H 113 H Iron TIBC % Saturation Ferritin 10/05/24 10/05/24 10/05/24 17:57 16:25 10:35 Hgb 9.2 L Hct 28.6 L Haptoglobin 144 POC Capillary Glucose 115 H Iron 57 TIBC 164 L % Saturation 35 Ferritin > 2000.00 H Preliminary micro results at discharge 10/04/24 05:51 Blood Culture - Preliminary Blood 10/03/24 23:14 Blood Culture - Preliminary Blood Discharge Plan Discharge Attending physician on discharge: Minesh Vizcarra Consulting providers: Titi Starkey; Malini Trevino; Kwame Vaughan Discharging Clinician: Minesh Vizcarra Anticipated Discharge Date/Time: 10/06/24 12:08 Patient Disposition: Hospice - Medical Facility Activity: other - see discharge instructions Diet: other - see discharge instructions Discharge Instructions: Patient failed her Swallow evaluation but today patient is able to follow the commands better. Patient diet,activity ,and medical reconciliation as per hospice protocol. Urine culture is positive for Karine , please complete Fluconazole 100mg PO for 10 days .If patient cant swallow consider IV. Discharged with hospice Patient Language: Chinese Stand Alone Forms: General Discharge Information Discharge Medications: New fluconazole 100 mg tablet 100 mg PO DAILY Qty: 10 0RF Continued amlodipine 5 mg tablet 5 mg PO DAILY Qty: 90 3RF clopidogrel 75 mg Tablet 75 mg PO QAM Qty: 30 0RF metoprolol tartrate 25 mg Tablet 25 mg PO Q12HR Qty: 60 0RF aspirin [Children's Aspirin] 81 mg Tablet,Chewable 81 mg PO DAILY@0800 Qty: 30 0RF cholecalciferol (vitamin D3) [Vitamin D3] 25 mcg (1,000 unit) Tablet 25 mcg PO DAILY Qty: 30 0RF atorvastatin 40 mg tablet 40 mg PO DAILY Qty: 90 3RF Held quetiapine [Seroquel] 25 mg tablet 25 mg PO HS Qty: 30 0RF Hold Instructions: Resume on 10/13/24. Please continue as per hospice protocol Discontinued cefdinir 300 mg Capsule 300 mg PO Q12HR Qty: 5 0RF doxycycline hyclate 100 mg Tablet 100 mg PO Q12HR Qty: 5 0RF Date of admission: 10/04/24 10:21 Primary Care Provider: Tj Mcgraw Admitting Provider: Anil Schwartz Attending physician on admission: Anil Schwartz Condition: Guarded Prognosis
[2024-10-06] MEDS: ONDANSETRON INJ 4 MG/2 ML VIAL IV PUSH (12:52)
--- NOTE | 2024-10-06 13:21 | PCSTNOTE ---
Please refer to the Bedside Swallow Evaluation in the EMR. Please note, silent aspiration cannot be ruled out at bedside.
[2024-10-06 13:36] VITALS: BP 127/69; PULSE 77; RESP 18; TEMP 37; O2SAT 97
[2024-10-07 14:57] LABS: Ionized Calcium 4.1 mg/dL (4.7-5.5)
[2024-10-10 22:07] LABS: Platelet Ab,Indirect (IgA) POSITIVE (NEGATIVE); Platelet Ab,Indirect (IgG) NEGATIVE (NEGATIVE); Platelet Ab,Indirect (IgM) NEGATIVE (NEGATIVE)
== END 2024-10-06 16:26 | disposition hospice, inpatient (51) | DRG 871 ==
LOC: ANHED 19:11 → ANHIMU 19:57 → ANH2MED 10-06 12:10 → ANHIMU 10-08 16:31
PROVIDERS: Nurse Practitioner; Student in an Organized Health Care Education/Training Program; Admitting Provider Hospitalist; Emergency Provider Emergency Medicine; PCP Family Medicine Adolescent Medicine; Visit Provider General Practice
DX: A41.9 Sepsis, unspecified organism (principal); J18.9 Pneumonia, unspecified organism; E87.0 Hyperosmolality and hypernatremia; N17.9 Acute kidney failure, unspecified; E87.29 Other acidosis; I5A Non-ischemic myocardial injury (non-traumatic); B37.49 Other urogenital candidiasis; I10 Essential (primary) hypertension; E86.0 Dehydration; E87.6 Hypokalemia; E78.5 Hyperlipidemia, unspecified; R74.01 Elevation of levels of liver transaminase levels; F03.90 Unspecified dementia, unspecified severity, without behavioral disturbance, psychotic disturbance, mood disturbance, and anxiety; Z20.822 Contact with and (suspected) exposure to COVID-19; Z51.5 Encounter for palliative care; Z87.891 Personal history of nicotine dependence; Z91.81 History of falling
CPT/HCPCS: 36415; 70450; 71045; 71250; 72125; 74176; 80048; 80053; 81001; 82247; 82248; 82274; 82330; 82550; 82607; 82728; 82746; 82803; 82948; 83010; 83540; 83550; 83605; 83615; 83735; 84100; 84484; 85014; 85018; 85025; 85027; 85046; 85055; 85384; 85610; 85730; 86022; 86880; 87040; 87086; 87637; 92610; 93005; 96361; 96365; 96366; 96367; 96375; 99212; 99285; C1751; G0378; G0463; J0456; J0696; J1450; J2405; J2597; J3480; J7030; J7040; J7060; J7070; J7120; L0140